=== PATIENT | male | born 1950 | race Caucasian/White ===

== ENCOUNTER 2024-02-21 09:46 | Inpatient (IN) | payer MEDICARE, OTHER, SELFPAY ==
[2024-02-21] VITALS (12 sets, daily range): BP systolic 95–147; BP diastolic 52–116; PULSE 71–105; RESP 12–18; TEMP 36.1–37.1; O2SAT 88–100; BMI 33.1; BMI 32.4
--- NOTE | 2024-02-21 11:18 | EKG12_ITS ---
Test Reason : CONFUSION Blood Pressure : / mmHG Vent. Rate : 101 BPM Atrial Rate : 091 BPM P-R Int : 000 ms QRS Dur : 158 ms QT Int : 386 ms P-R-T Axes : 000 160 040 degrees QTc Int : 500 ms Ventricular-paced rhythm with PVC's Abnormal ECG Confirmed by Terry Erickson ([id number]), film and video editor TIBURCIO GURROLA ([id number]) on 02/22/2024 7:47:29 AM Referred By: Confirmed By:Terry Erickson
--- NOTE | 2024-02-21 11:21 | EX.ED.DYSGE1 ---
HPI <CARINE Rios - Last Filed: 02/21/24 14:16> History of Present Illness Chief Complaint: Confusion Narrative Narrative: Patient is a 73-year-old male with history of atrial fibrillation who had a watchman placed, and stopped his Coumadin last week. Patient is currently on baby aspirin. Patient also has history of CAD, hypertension hyperlipidemia. Patient states that yesterday morning when he woke up, he felt off. Patient dates he had visual changes where he could not see the top part of his visual nye. Patient does not think that it is black however he states it is very blurry where he cannot see. He was complaining of a headache a couple days ago. Patient is he called his doctor yesterday however could not get in. Today his sister talk to them and because he was acting confused, they called the ambulance. Patient is here with his daughter. PFSH <CARINE Rios - Last Filed: 02/21/24 14:16> [facility] Medical History Afib HTN (hypertension) Myocardial infarct COPD (chronic obstructive pulmonary disease) Medical History unable to obtain Home Medications ?Medication ?Instructions ?Recorded ?Last Taken ?Type aspirin 81 mg tablet,delayed 81 mg PO DAILY HEART HEALTH 02/21/24 Unknown History release (Adult Aspirin Regimen) carvedilol 3.125 mg tablet 3.125 mg PO BID HEART 02/21/24 Unknown History cholecalciferol (vitamin D3) 50 50 mcg PO DAILY VITAMIN 02/21/24 Unknown History mcg (2,000 unit) capsule clopidogrel 75 mg tablet 75 mg PO DAILY BLOOD THINNER 02/21/24 Unknown History magnesium oxide 400 mg PO DAILY SUPPLEMENT 02/21/24 Unknown History pantoprazole 40 mg tablet,delayed 40 mg PO BID STOMACH ACID 02/21/24 Unknown History release potassium citrate 10 mEq (1,080 10 meq PO BID SUPPLEMENT 02/21/24 Unknown History mg) tablet,extended release pregabalin 150 mg capsule (Lyrica) 150 mg PO BID NERVE PAIN 02/21/24 Unknown History rosuvastatin 5 mg tablet 5 mg PO DAILY CHOLESTEROL 02/21/24 Unknown History spironolactone 25 mg tablet 12.5 mg PO DAILY HIGH BLOOD 02/21/24 Unknown History (Aldactone) PRESSURE torsemide 20 mg tablet 10 mg PO QODAY FLUID RETENTION 02/21/24 Unknown History Allergy/AdvReac Type Severity Reaction Status Date / Time No Known Allergies Allergy Verified 02/21/24 09:52 Family History (Updated 02/21/24 @ 15:[address] Homero Baker MD) Other Lung cancer Family History unable to obtain Surgical History Pacemaker Presence of Watchman left atrial appendage closure device Surgical History unable to obtain Social History Smoking Status: Former smoker ROS <CARINE Rios - Last Filed: 02/21/24 14:16> ROS ED ROS Narrative Constitutional: Negative for fever, chills, weight loss, weakness Eyes: Negative for vision change, double vision. Positive top field vision loss bilateral ENT: Negative for any sore throat, ear pain, congestion Cardiovascular: Negative for any chest pain, tightness, palpitations Respiratory: Negative for any cough, sputum production, hemoptysis, dyspnea, dyspnea on exertion, orthopnea Gastrointestinal: Negative for any abdominal pain, nausea, vomiting, diarrhea, constipation, blood in stool, blood in vomit : Negative for any urinary frequency, dysuria, retention, blood in urine Muscle skeletal: Negative for any neck pain, back pain Neurological: Negative for any syncope, dizziness. Positive for history of headache, confusion, he understands he is not acting appropriate Skin: Negative for any rashes, itching, abrasions, lacerations Psychiatric: Negative for any depression, anxiety, stress, suicidal ideation, homicidal ideation Hematologic: Negative for any excessive bruising, easy bleeding EXAM <CARINE Rios - Last Filed: 02/21/24 14:16> Physical Exam Narrative Exam Narrative: Vital signs reviewed. Patient is alert and orient x 2, he does answer some questions appropriately, he does understand that he is slightly more confused than normal. HEET: Head normocephalic atraumatic, TMs clear bilaterally. Posterior pharynx is clear, moist mucous membranes. Nares clear bilaterally. Pupils are equal round reactive to light. Patient does have vision loss to the upper visual nye. This is bilateral. Neck: Supple with no lymphadenopathy or tenderness. No signs of meningismus. Cardiac: Regular rate and rhythm no murmurs gallops or rubs, equal peripheral pulses bilaterally. Respiratory: Lungs clear to auscultation bilaterally. No chest tenderness. Abdomen: Soft, nontender, nondistended. No abdominal bruit or pulsatile masses. No hepatosplenomegaly Extremities: No peripheral edema, no signs of gross trauma or deformity. Active full range of motion of all extremities. Neuro: Cranial nerves II through XII intact, no focal neurological deficits. NIH stroke scale 2 for vision loss, confusion Skin: Clean dry and intact with no rash, purpura, petechiae, vesicles or pustules. Backs/flank: No CVA tenderness, no midline spinal tenderness, no deformity. Psych: Normal mood and affect. No SI, HI or acute psychosis. Const Vital Signs: 02/21/24 09:47 02/21/24 10:53 02/21/24 11:00 Temperature 97 F L Temperature Source Temporal Pulse Rate 100 100 98 Respiratory Rate 12 12 14 Blood Pressure 140/116 H 139/94 H 141/91 H Blood Pressure Mean 124 109 107 Pulse Ox 96 94 95 Oxygen Delivery Method Room Air Room Air 02/21/24 12:00 02/21/24 13:15 02/21/24 14:00 Temperature 98.2 F Temperature Source Pulse Rate 78 89 79 Respiratory Rate 16 13 17 Blood Pressure 147/101 H 131/81 H 129/99 H Blood Pressure Mean 116 97 109 Pulse Ox 98 98 100 Oxygen Delivery Method Room Air Positive well nourished and well developed General Appearance ED: well developed <Dr. Eugenio Christopher DO - Last Filed: 02/21/24 22:38> Physical Exam Const Vital Signs: 02/21/24 09:47 02/21/24 10:53 02/21/24 11:00 Temperature 97 F L Temperature Source Temporal Pulse Rate 100 100 98 Respiratory Rate 12 12 14 Blood Pressure 140/116 H 139/94 H 141/91 H Blood Pressure Mean 124 109 107 Pulse Ox 96 94 95 Oxygen Delivery Method Room Air Room Air 02/21/24 12:00 02/21/24 13:15 02/21/24 14:00 Temperature 98.2 F Temperature Source Pulse Rate 78 89 79 Respiratory Rate 16 13 17 Blood Pressure 147/101 H 131/81 H 129/99 H Blood Pressure Mean 116 97 109 Pulse Ox 98 98 100 Oxygen Delivery Method Room Air MDM <CARINE Rios - Last Filed: 02/21/24 14:16> MDM Lab Data Labs: Laboratory Results - last 24 hr 02/21/24 02/21/24 10:42 13:05 WBC 7.8 RBC 5.37 Hgb 15.5 Hct 47.8 MCV 89.0 MCH 28.9 MCHC 32.4 RDW Std Deviation 51.8 H RDW Coeff of Elias 15.9 H Plt Count 237 MPV 11.1 Immature Gran % (Auto) 0.300 Neut % (Auto) 69.3 Lymph % (Auto) 16.6 L [place] % (Auto) 11.9 H Eos % (Auto) 1.3 Baso % (Auto) 0.6 Absolute Neuts (auto) 5.4 Absolute Lymphs (auto) 1.30 Nucleated RBC % 0 PT 15.2 H INR 1.2 Sodium 139 Potassium 3.8 Chloride 106 Carbon Dioxide 27.0 Anion Gap 6 BUN 19 H Creatinine 1.42 H Estim Creat Clear Calc 61.36 Est GFR (MDRD) Af Amer 63 Est GFR (MDRD) Non-Af 52 L BUN/Creatinine Ratio 13.4 Glucose 98 Calcium 8.7 Total Bilirubin 1.40 H AST 11 L ALT 29 Alkaline Phosphatase 72 Troponin I High Sens 9 Total Protein 6.7 Albumin 2.8 L Globulin 3.9 Albumin/Globulin Ratio 0.7 L Urine Color Yellow Urine Clarity Clear Urine pH 7.0 Ur Specific [place] 1.010 Urine Protein 15 H Urine Glucose (UA) Normal Urine Ketones 5 H Urine Occult Blood Negative Urine Nitrite Negative Urine Bilirubin Negative Urine Urobilinogen 4 H Ur Leukocyte Esterase Negative Urine RBC 0 SEEN Urine WBC 0 SEEN Ur Squamous Epith Cells 0-5 SEEN Amorphous Sediment 1+ Urine Bacteria 1+ Urine Mucus 0 SEEN Radiography Diagnostic Testing: Clinical Impression(s) from Imaging Studies Head/Neck CTA 02/21/24 12:25 IMPRESSION: Moderate acute left posterior cerebral artery territory infarct. Mild acute right posterior cerebral artery territory infarct. No acute intracranial hemorrhage identified. Thrombus and occlusion of the mid left and distal right posterior cerebral arteries. No evidence for significant stenosis of the carotid or vertebral arteries of the neck. N.B. : Domenic Cornejo NP, confirmed on 02/21/2024 13:16:08 (ET) that the healthcare facility has received the radiology report. Electronically Signed: Susan Harmon MD at 13:10 EDT , Chest X-Ray 02/21/24 12:50 IMPRESSION: Mild atelectasis or inflammation the lung bases. Electronically Signed: Susan Harmon MD at 13:14 EDT , EKG Ventricular paced rhythm: Attestation: I personally reviewed and interpreted this EKG as follows: Comments: Ventricular paced rhythm, rate 101 bpm, QRS duration of 58 ms, no acute ST elevation, no acute infarct noted. Treatment and Re-Evaluation :: Differential diagnosis includes however is not limited to: CVA, TIA, hypoglycemia, metabolic encephalopathy, viral syndrome, optic neuritis, brain mass Patient is in no obvious respiratory distress vital signs are stable patient is nontoxic. Patient presents to the emergency department for vision changes as well as confusion that is been ongoing since 7 AM yesterday. Talking with the patient, I am concerned for a stroke however patient does have history of possible lung cancer, so in the differential is CVA, brain mass. Patient will receive a CTA of the head and neck with contrast, as well as IV fluids, multiple laboratory values. The patient will need to be admitted to the hospital. NIH stroke scale was 2 this was for some confusion as well as vision loss. All radiologic examinations were read, reviewed by the emergency department attending. From these reads, a plan of care will be put in place. I did receive a call from [facility] radiology regarding the patient's CTA of the head and neck. CTA of the head and neck showed a moderate acute left posterior cerebral artery territory infarct. Mild acute right posterior cerebral artery territory infarct. No acute intracranial hemorrhage identified. There is also thrombus and occlusion of the mid left and distal right posterior cerebral arteries. No evidence of significant stenosis of the carotid or vertebral arteries of the neck. Secondary to this finding, I will reach out to the [facility] stroke neurology. Spoke with [facility] stroke neurologist Dr. Nj, I went over the CTA head and neck with her, at this time, she does not believe there is any intervention. Patient will be able to be admitted here for stroke workup. I spoke with the patient, I will speak to the hospitalist. Patient be stable for admission. <Dr. Eugenio Christopher, DO - Last Filed: 02/21/24 22:38> [facility] Narrative Medical decision making narrative: I have personally performed a face to face assessment of the patient and have reviewed the CHRISTOPHER Note. I performed a substantive portion of the visit including all aspects of the following. My sierra findings include: History: Patient presents with confusion and headache that began yesterday when he woke up. Patient states his last known well was approximately 9 PM 2 nights ago. Patient states that his headache is mainly over the left side of his head. Patient describes it as a dull ache. Patient also admits to decreased vision of the superior visual nye bilaterally. Patient states nothing makes his symptoms better and nothing makes them worse. Patient denies any chest pain or palpitations. Patient denies any nausea or vomiting. Exam: Vital signs are stable. Patient is afebrile. Patient is in no acute distress. Oral mucosa is pink and moist. Oropharynx is clear. Airway is patent. Pupils are equal, round, and reactive to light bilaterally. Extraocular muscles are intact. Funduscopic examination is benign bilaterally. Heart was regular rate and rhythm. Lungs are clear and equal bilaterally. Abdomen is soft. Bowel sounds are normal. There is no tenderness. Cranial nerves II through XII are intact with the exception of a loss of superior visual nye bilaterally. Strength is 5/5 bilaterally upper and lower extremities. There are no sensory deficits noted. Medical Decision Making: Differential diagnose includes stroke, intracranial bleeding, intracranial mass, electrolyte abnormality, pneumonia, coagulopathy, urinary tract infection, cardiac dysrhythmia, and cardiac ischemia. CT scan of the brain will be obtained to assess for stroke and intracranial bleeding. CTA of the head and neck will be obtained to assess for large vessel occlusion. Chest x-ray will be obtained to assess for pneumonia and pneumothorax. CBC will be obtained to assess for leukocytosis and anemia. Comprehensive metabolic profile will be obtained to assess for hepatic function, renal function, and electrolyte abnormality. Urinalysis will be obtained to assess for urinary tract infection and hematuria. PT with INR and PTT will be obtained to assess for coagulopathy. High-sensitivity troponin will be obtained to assess for cardiac ischemia. EKG will be obtained to assess for cardiac dysrhythmia and cardiac ischemia. Patient was given IV fluids. CBC was reviewed and was within normal limits. Comprehensive metabolic profile was reviewed. BUN was 19 and creatinine was 1.42. Total bilirubin was mildly elevated at 1.4. The remainder was within normal limits. There are no prior lab values for comparison. CTA of the head and neck was obtained. There is a moderate infarct of the left posterior cerebral artery territory. There is a mild infarct of the right posterior cerebral artery territory. There is thrombus and occlusion of the left mid and right distal posterior cerebral arteries. There is no hemorrhage noted. This was interpreted by the radiologist was also independently reviewed by myself. Case was discussed with the stroke neurologist at [facility]. She states that the patient can be admitted here locally for further workup. This does not need to be transferred for removal of the large vessel occlusion. Case was discussed with the hospitalist. He will admit the patient to the hospital. Patient and family understood and were agreeable with the plan. All questions were answered. Lab Data Labs: Laboratory Results - last 24 hr 02/21/24 02/21/24 10:42 13:05 WBC 7.8 RBC 5.37 Hgb 15.5 Hct 47.8 MCV 89.0 MCH 28.9 MCHC 32.4 RDW Std Deviation 51.8 H RDW Coeff of Elias 15.9 H Plt Count 237 MPV 11.1 Immature Gran % (Auto) 0.300 Neut % (Auto) 69.3 Lymph % (Auto) 16.6 L [place] % (Auto) 11.9 H Eos % (Auto) 1.3 Baso % (Auto) 0.6 Absolute Neuts (auto) 5.4 Absolute Lymphs (auto) 1.30 Nucleated RBC % 0 PT 15.2 H INR 1.2 Sodium 139 Potassium 3.8 Chloride 106 Carbon Dioxide 27.0 Anion Gap 6 BUN 19 H Creatinine 1.42 H Estim Creat Clear Calc 61.36 Est GFR (MDRD) Af Amer 63 Est GFR (MDRD) Non-Af 52 L BUN/Creatinine Ratio 13.4 Glucose 98 Calcium 8.7 Total Bilirubin 1.40 H AST 11 L ALT 29 Alkaline Phosphatase 72 Troponin I High Sens 9 Total Protein 6.7 Albumin 2.8 L Globulin 3.9 Albumin/Globulin Ratio 0.7 L Urine Color Yellow Urine Clarity Clear Urine pH 7.0 Ur Specific [place] 1.010 Urine Protein 15 H Urine Glucose (UA) Normal Urine Ketones 5 H Urine Occult Blood Negative Urine Nitrite Negative Urine Bilirubin Negative Urine Urobilinogen 4 H Ur Leukocyte Esterase Negative Urine RBC 0 SEEN Urine WBC 0 SEEN Ur Squamous Epith Cells 0-5 SEEN Amorphous Sediment 1+ Urine Bacteria 1+ Urine Mucus 0 SEEN Radiography Diagnostic Testing: Clinical Impression(s) from Imaging Studies Head/Neck CTA 02/21/24 12:25 IMPRESSION: Moderate acute left posterior cerebral artery territory infarct. Mild acute right posterior cerebral artery territory infarct. No acute intracranial hemorrhage identified. Thrombus and occlusion of the mid left and distal right posterior cerebral arteries. No evidence for significant stenosis of the carotid or vertebral arteries of the neck. N.B. : Domenic Cornejo NP, confirmed on 02/21/2024 13:16:08 (ET) that the healthcare facility has received the radiology report. Electronically Signed: Susan Harmon MD at 13:10 EDT , Chest X-Ray 02/21/24 12:50 IMPRESSION: Mild atelectasis or inflammation the lung bases. Electronically Signed: Susan aHrmon MD at 13:14 EDT , Management Discussion w/another healthcare provider: Hospitalist, Director Supply Chain and Radiologist Discharge Plan Dx/Rx/DC Orders Clinical Impression: Acute ischemic left posterior cerebral artery (MULE TENDER) stroke, Acute ischemic right posterior cerebral artery (MULE TENDER) stroke, Loss of vision, Acute alteration in mental status Disposition Disposition: Acute Care Hospital [facility] Discharge Date/Time: 02/21/24 15:17
--- NOTE | 2024-02-21 11:27 | EDS_ITS ---
HPI History of Present Illness Chief Complaint: Confusion [facility] Medical History
--- NOTE | 2024-02-21 11:27 | EX.ED.DYSGE1 ---
HPI History of Present Illness Chief Complaint: Confusion [facility] Medical History Afib HTN (hypertension) Myocardial infarct COPD (chronic obstructive pulmonary disease) Medical History unable to obtain Home Medications ?Medication ?Instructions ?Recorded ?Last Taken ?Type aspirin 81 mg tablet,delayed 81 mg PO DAILY HEART HEALTH 02/21/24 Unknown History release (Adult Aspirin Regimen) carvedilol 3.125 mg tablet 3.125 mg PO BID HEART 02/21/24 Unknown History cholecalciferol (vitamin D3) 50 50 mcg PO DAILY VITAMIN 02/21/24 Unknown History mcg (2,000 unit) capsule clopidogrel 75 mg tablet 75 mg PO DAILY BLOOD THINNER 02/21/24 Unknown History magnesium oxide 400 mg PO DAILY SUPPLEMENT 02/21/24 Unknown History pantoprazole 40 mg tablet,delayed 40 mg PO BID STOMACH ACID 02/21/24 Unknown History release potassium citrate 10 mEq (1,080 10 meq PO BID SUPPLEMENT 02/21/24 Unknown History mg) tablet,extended release pregabalin 150 mg capsule (Lyrica) 150 mg PO BID NERVE PAIN 02/21/24 Unknown History rosuvastatin 5 mg tablet 5 mg PO DAILY CHOLESTEROL 02/21/24 Unknown History spironolactone 25 mg tablet 12.5 mg PO DAILY HIGH BLOOD 02/21/24 Unknown History (Aldactone) PRESSURE torsemide 20 mg tablet 10 mg PO QODAY FLUID RETENTION 02/21/24 Unknown History Allergy/AdvReac Type Severity Reaction Status Date / Time No Known Allergies Allergy Verified 02/21/24 09:52 Family History (Updated 02/21/24 @ 15:[address] Homero Baker MD) Other Lung cancer Family History unable to obtain Surgical History Pacemaker Presence of Watchman left atrial appendage closure device Surgical History unable to obtain Social History Smoking Status: Former smoker EXAM Physical Exam Const Vital Signs: 02/21/24 09:47 02/21/24 10:53 02/21/24 11:00 Temperature 97 F L Temperature Source Temporal Pulse Rate 100 100 98 Respiratory Rate 12 12 14 Blood Pressure 140/116 H 139/94 H 141/91 H Blood Pressure Mean 124 109 107 Pulse Ox 96 94 95 Oxygen Delivery Method Room Air Room Air 02/21/24 12:00 02/21/24 13:15 02/21/24 14:00 Temperature 98.2 F Temperature Source Pulse Rate 78 89 79 Respiratory Rate 16 13 17 Blood Pressure 147/101 H 131/81 H 129/99 H Blood Pressure Mean 116 97 109 Pulse Ox 98 98 100 Oxygen Delivery Method Room Air [facility] Lab Data Labs: Laboratory Results - last 24 hr 02/21/24 02/21/24 10:42 13:05 WBC 7.8 RBC 5.37 Hgb 15.5 Hct 47.8 MCV 89.0 MCH 28.9 MCHC 32.4 RDW Std Deviation 51.8 H RDW Coeff of Elias 15.9 H Plt Count 237 MPV 11.1 Immature Gran % (Auto) 0.300 Neut % (Auto) 69.3 Lymph % (Auto) 16.6 L [place] % (Auto) 11.9 H Eos % (Auto) 1.3 Baso % (Auto) 0.6 Absolute Neuts (auto) 5.4 Absolute Lymphs (auto) 1.30 Nucleated RBC % 0 PT 15.2 H INR 1.2 Sodium 139 Potassium 3.8 Chloride 106 Carbon Dioxide 27.0 Anion Gap 6 BUN 19 H Creatinine 1.42 H Estim Creat Clear Calc 61.36 Est GFR (MDRD) Af Amer 63 Est GFR (MDRD) Non-Af 52 L BUN/Creatinine Ratio 13.4 Glucose 98 Calcium 8.7 Total Bilirubin 1.40 H AST 11 L ALT 29 Alkaline Phosphatase 72 Troponin I High Sens 9 Total Protein 6.7 Albumin 2.8 L Globulin 3.9 Albumin/Globulin Ratio 0.7 L Urine Color Yellow Urine Clarity Clear Urine pH 7.0 Ur Specific [place] 1.010 Urine Protein 15 H Urine Glucose (UA) Normal Urine Ketones 5 H Urine Occult Blood Negative Urine Nitrite Negative Urine Bilirubin Negative Urine Urobilinogen 4 H Ur Leukocyte Esterase Negative Urine RBC 0 SEEN Urine WBC 0 SEEN Ur Squamous Epith Cells 0-5 SEEN Amorphous Sediment 1+ Urine Bacteria 1+ Urine Mucus 0 SEEN Radiography Diagnostic Testing: Clinical Impression(s) from Imaging Studies Head/Neck CTA 02/21/24 12:25 IMPRESSION: Moderate acute left posterior cerebral artery territory infarct. Mild acute right posterior cerebral artery territory infarct. No acute intracranial hemorrhage identified. Thrombus and occlusion of the mid left and distal right posterior cerebral arteries. No evidence for significant stenosis of the carotid or vertebral arteries of the neck. N.B. : Domenic Cornejo NP, confirmed on 02/21/2024 13:16:08 (ET) that the healthcare facility has received the radiology report. Electronically Signed: Susan Harmon MD at 13:10 EDT , Chest X-Ray 02/21/24 12:50 IMPRESSION: Mild atelectasis or inflammation the lung bases. 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
[2024-02-21] MEDS: 0.9% Normal Saline (1000mL) 1,000 ML 999 ML IV (11:33)
[2024-02-21 11:37] LABS: Absolute Neutrophil Count 5.4 X10^3/uL (2.0-7.7); Basophil# 0.05 X10^3/uL; Basophil% 0.6 % (0-1); Eosinophils% 1.3 % (0-5); Hematocrit 47.8 % (40-54); Hemoglobin 15.5 g/dL (13.0-16.5); Lymphocyte % 16.6 % (19-41); Mean Corp Hgb Conc 32.4 g/dL (32-36); Mean Corpuscular Hgb 28.9 pg (27.0-32.0); Mean Platelet Vol. 11.1 fl (6.2-12.0); Monocyte# 0.93 X10^3/uL; Monocyte% 11.9 % (0-10); NRBC Flagged by Analyzer 0 % (0-5); Neutrophil # 5.41 X10^3/uL (2.7-7.7); Neutrophil % 69.3 % (47-70); Platelet Count 237 K/mm3 (150-450); RBC Distribution Width CV 15.9 % (11.6-14.6); RBC Distribution Width SD 51.8 fl (35.1-43.9); Red Blood Count 5.37 M/mm3 (4.6-6.2); White Blood Count 7.8 K/mm3 (4.4-11.0)
--- NOTE | 2024-02-21 11:47 | ED.RN ---
NO OLD EKGS
[2024-02-21 11:53] LABS: ALB/GLOB Ratio 0.7 RATIO (0.9-2.4); AST(SGOT) 11 U/L (15-37); Alanine Aminotransfer ALT/SGPT 29 U/L (16-61); Albumin, Serum 2.8 g/dL (3.2-5.0); Alkaline Phosphatase 72 U/L (45-117); Anion Gap 6 (5-15); BUN 19 mg/dL (7-18); BUN/Creat Ratio 13.4 RATIO (10-20); Calcium,Total 8.7 mg/dL (8.5-10.1); Chloride 106 mmol/L (98-107); Creatinine, Serum 1.42 mg/dL (0.70-1.30); EST Glomerular Filtration Rate 52 mL/min (>60); Est Glom Filt Rate - Afr Amer 63 mL/min (>60); Estimated Creatinine Clearance 61.36 ml/min; Globulin 3.9 g/dL (2.2-4.2); Glucose 98 mg/dL (74-106); Potassium 3.8 mmol/L (3.5-5.1); Protein, Total 6.7 g/dL (6.4-8.2); Sodium Level 139 mmol/L (136-145)
[2024-02-21 12:12] LABS: International Normalized Ratio 1.2; Prothrombin Time (Protime)PT. 15.2 SECONDS (11.7-14.9)
--- NOTE | 2024-02-21 12:25 | CT_ITS ---
HISTORY: confusion. TECHNIQUE: Noncontrast axial images were obtained of the brain. Subsequently, routine carotid and sokaogon of Snider CT angiogram protocol was performed after the intravenous administration of 100 mL Isovue-370. NASCET criteria using the distal ICAs for comparison were used for evaluation of stenoses. 3D reconstructions were reviewed. A radiation dose optimization technique was used for this scan .2286 images. COMPARISON: None. FINDINGS: --CT BRAIN: BRAIN PARENCHYMA: Moderate zone of cytotoxic edema in the medial left temporal lobe with mild sulcal effacement. Mild zones of low attenuation with sulcal effacement in the right medial occipital lobe. Mild chronic small vessel ischemic gliosis. No acute intra-axial hemorrhage. CSF SPACES: Mild generalized volume loss. No midline shift or other significant mass effect.No acute extra-axial hemorrhage. Small arachnoid cyst or prominent CSF space of the left anterior temporal pole. OTHER: Sinonasal postoperative change with mild polypoid mucosal thickening.Symmetric orbital contents. Intact calvarium. --CTA NECK: AORTIC ARCH AND BRANCHES: Mild atherosclerosis. RIGHT CCA/ICA: Minimal calcified plaque at the bifurcation extending into the origins of the internal/external carotid arteries. No occlusion, significant stenosis or dissection. LEFT CCA/ICA: Mild calcified plaque at the common carotid bifurcation extending into the origin of the internal carotid artery with less than 30% stenosis. No occlusion, significant stenosis or dissection. RIGHT VERTEBRAL ARTERY: Hypoplastic. No occlusion, significant stenosis or dissection. LEFT VERTEBRAL ARTERY: Dominant. No occlusion, significant stenosis or dissection. OTHER: Cardiac pacemaker noted. Emphysema in the lung apices. Small thyroid nodules. --CTA HEAD: ICAs: No significant stenosis at the intracranial/visualized segments. Mild calcified plaque at the carotid siphons. ACAs: No significant stenosis at the visualized segments. No anterior communicating artery aneurysm. MCAs: No significant stenosis or vascular malformation at the visualized segments. record tester: Abrupt cut off of the distal right and mid left posterior cerebral arteries. BASILAR ARTERY: No significant stenosis, occlusion, or aneurysm. VERTEBRAL ARTERIES: Mild calcified plaque in the dominant left vertebral artery without significant stenosis. Hypoplastic and patent right vertebral artery, likely terminating as PICA. CT/CTA Head AND Neck W/ Contrast IMPRESSION: Moderate acute left posterior cerebral artery territory infarct. Mild acute right posterior cerebral artery territory infarct. No acute intracranial hemorrhage identified. Thrombus and occlusion of the mid left and distal right posterior cerebral arteries. No evidence for significant stenosis of the carotid or vertebral arteries of the neck. N.B. : Domenic Corenjo NP, confirmed on 02/21/2024 13:16:08 (ET) that the healthcare facility has received the radiology report. Electronically Signed: Susan Harmon MD at 13:10 EDT ,
--- NOTE | 2024-02-21 12:50 | RAD_ITS ---
HISTORY: cough. TECHNIQUE: XR Chest 1 View. COMPARISON: None. FINDINGS: CARDIOMEDIASTINAL BORDERS: Cardiac silhouette within normal limits in size with pacemaker in place. Calcification of the aortic knob. LUNGS: Calcified granuloma in the left upper lobe. Mild linear scarring in the right upper lobe. Bulla in the right lung base. Mild linear opacities in the lung bases PLEURA: No pleural effusion or pneumothorax seen. OSSEOUS STRUCTURES: Degenerative change. RAD/Chest 1 View (Portable) IMPRESSION: Mild atelectasis or inflammation the lung bases. Electronically Signed: Susan Harmon MD at 13:14 EDT ,
[2024-02-21 13:00] LABS: Troponin-I HS 9 pg/mL (3.0-78.0)
[2024-02-21 13:12] LABS: Mucous, Urine 0 SEEN /hpf (<or=2+); Red Blood Cells-Urine 0 SEEN /hpf (0-5); White Blood Cells 0 SEEN /hpf (0-5)
[2024-02-21 13:17] LABS: Color, Urine Yellow (Yellow); Glucose, Dipstick Normal (Normal); Ketone-Dipstick 5 mg/dl (Negative); Leukocyte Esterase-Dipstick Negative /ul (Negative); Nitrite-Dipstick Negative (Negative); Occult Blood-Urine Negative /ul (Negative); Protein-Dipstick 15 mg/dl (Negative); Urine Bilirubin Dipstick Negative (Negative); Urine Clarity Clear (Clear); Urine Urobilinogen 4 mg/dl (Normal)
[2024-02-21 13:29] LABS: Amorphous Sediment 1+; Bacteria 1+ /hpf (None Seen); Squamous Epithelial Cells - UA 0-5 SEEN /hpf (0-5)
--- NOTE | 2024-02-21 14:18 | PCM.HP.STD ---
HPI - General General Date of Admission: 02/21/24 Date of Service: 02/21/24 Chief Complaint: Confusion HPI Narrative YESY LAWLER, is a 73 M with a significant history of atrial fibrillation status post left atrial appendage clippage and on permanent pacemaker; CAD status post 3 stents who presented to the emergency department with confusion. Of note patient symptoms started when he woke up at about 7 AM on the day before presentation. Because he has had a broken teeth tried calling a dentist to get it fixed. However he was not making sense on the phone. Also patient could not see superiorly. With urging from his sister patient came to emergency department. At the emergency department patient was found to have Moderate acute left posterior cerebral artery territory infarct; Mild acute right posterior cerebral artery territory infarct and Thrombus and occlusion of the mid left and distal right posterior cerebral arteries. Emergency department provider discussed the case with attending neurologist from [facility] who recommended that patient should undergo medical management. [facility] Medical History Afib HTN (hypertension) Myocardial infarct COPD (chronic obstructive pulmonary disease) Medical History unable to obtain Home Medications ?Medication ?Instructions ?Recorded ?Last Taken ?Type aspirin 81 mg tablet,delayed 81 mg PO DAILY HEART HEALTH 02/21/24 Unknown History release (Adult Aspirin Regimen) carvedilol 3.125 mg tablet 3.125 mg PO BID HEART 02/21/24 Unknown History cholecalciferol (vitamin D3) 50 50 mcg PO DAILY VITAMIN 02/21/24 Unknown History mcg (2,000 unit) capsule clopidogrel 75 mg tablet 75 mg PO DAILY BLOOD THINNER 02/21/24 Unknown History magnesium oxide 400 mg PO DAILY SUPPLEMENT 02/21/24 Unknown History pantoprazole 40 mg tablet,delayed 40 mg PO BID STOMACH ACID 02/21/24 Unknown History release potassium citrate 10 mEq (1,080 10 meq PO BID SUPPLEMENT 02/21/24 Unknown History mg) tablet,extended release pregabalin 150 mg capsule (Lyrica) 150 mg PO BID NERVE PAIN 02/21/24 Unknown History rosuvastatin 5 mg tablet 5 mg PO DAILY CHOLESTEROL 02/21/24 Unknown History spironolactone 25 mg tablet 12.5 mg PO DAILY HIGH BLOOD 02/21/24 Unknown History (Aldactone) PRESSURE torsemide 20 mg tablet 10 mg PO QODAY FLUID RETENTION 02/21/24 Unknown History Allergy/AdvReac Type Severity Reaction Status Date / Time No Known Allergies Allergy Verified 02/21/24 09:52 Family History (Updated 02/21/24 @ 15:[address] Homero Baker MD) Other Lung cancer Family History other other (His mother lived to be 97 to 98 years.) Surgical History Pacemaker Presence of Watchman left atrial appendage closure device Surgical History unable to obtain Social History Smoking Status: Former smoker ROS ROS Narrative Pertinent positives and pertinent negatives as noted in HPI. All other systems were reviewed and are negative Vital Signs Vital Signs Vital Signs: 02/21/24 09:47 02/21/24 10:53 02/21/24 11:00 Temperature 97 F L Temperature Source Temporal Pulse Rate 100 100 98 Respiratory Rate 12 12 14 Blood Pressure 140/116 H 139/94 H 141/91 H Blood Pressure Mean 124 109 107 Pulse Ox 96 94 95 Oxygen Delivery Method Room Air Room Air 02/21/24 12:00 02/21/24 13:15 02/21/24 14:00 Temperature 98.2 F Temperature Source Pulse Rate 78 89 79 Respiratory Rate 16 13 17 Blood Pressure 147/101 H 131/81 H 129/99 H Blood Pressure Mean 116 97 109 Pulse Ox 98 98 100 Oxygen Delivery Method Room Air Weight Weight: 110.9 kg Body Mass Index (BMI) 33.1 Physical Exam Narrative Physical exam: General: Well-nourished, well-developed. Head: Normocephalic, atraumatic, no tenderness Eyes: Vision is grossly intact. EOMI ENT, no trauma, moist mucous membranes, no rhinorrhea Neck: Nontender, No thyromegaly. CVS: Regular rate and rhythm. S1-S2 present. No murmur, gallop or rub. Respiratory : clear to auscultation bilaterally, chest wall nontender Abdomen: Soft, nontender, nondistended, normal bowel sounds, no masses : Deferred Back: Nontender, no CVA tenderness, no midline spinal tenderness, deformities, step-offs Extremities: Nontender full range of motion, no trauma Skin: Normal color, no trauma, abrasions Neuro: Alert, oriented, cranial nerves II through XII grossly intact as the patient is unable to see superiorly; both eyes were tested separately. Strength in all extremities 5 out of 5 except strength in left lower extremity which is 4 out of 5. Not hyperreflexia bilaterally at elbow reflex and knee reflexes Psychiatry: Normal mood. Normal affect. Not depressed. Not anxious. Results Lab / Micro Data 02/21/24 10:42 02/21/24 10:42 Labs: Laboratory Results - last 24 hr 02/21/24 10:42: WBC 7.8, RBC 5.37, Hgb 15.5, Hct 47.8, MCV 89.0, MCH 28.9, MCHC 32.4, RDW Std Deviation 51.8 H, RDW Coeff of Elias 15.9 H, Plt Count 237, MPV 11.1, Immature Gran % (Auto) 0.300, Neut % (Auto) 69.3, Lymph % (Auto) 16.6 L, Coles % (Auto) 11.9 H, Eos % (Auto) 1.3, Baso % (Auto) 0.6, Absolute Neuts (auto) 5.4, Absolute Lymphs (auto) 1.30, Nucleated RBC % 0, PT 15.2 H, INR 1.2, Sodium 139, Potassium 3.8, Chloride 106, Carbon Dioxide 27.0, Anion Gap 6, BUN 19 H, Creatinine 1.42 H, Estim Creat Clear Calc 61.36, Est GFR (MDRD) Af Amer 63, Est GFR (MDRD) Non-Af 52 L, BUN/Creatinine Ratio 13.4, Glucose 98, Calcium 8.7, Total Bilirubin 1.40 H, AST 11 L, ALT 29, Alkaline Phosphatase 72, Troponin I High Sens 9, Total Protein 6.7, Albumin 2.8 L, Globulin 3.9, Albumin/Globulin Ratio 0.7 L 02/21/24 13:05: Urine Color Yellow, Urine Clarity Clear, Urine pH 7.0, Ur Specific [place] 1.010, Urine Protein 15 H, Urine Glucose (UA) Normal, Urine Ketones 5 H, Urine Occult Blood Negative, Urine Nitrite Negative, Urine Bilirubin Negative, Urine Urobilinogen 4 H, Ur Leukocyte Esterase Negative, Urine RBC 0 SEEN, Urine WBC 0 SEEN, Ur Squamous Epith Cells 0-5 SEEN, Amorphous Sediment 1+, Urine Bacteria 1+, Urine Mucus 0 SEEN Imaging Radiology Impression Head/Neck CTA 02/21/24 12:25 IMPRESSION: Moderate acute left posterior cerebral artery territory infarct. Mild acute right posterior cerebral artery territory infarct. No acute intracranial hemorrhage identified. Thrombus and occlusion of the mid left and distal right posterior cerebral arteries. No evidence for significant stenosis of the carotid or vertebral arteries of the neck. N.B. : Domenic Cornejo NP, confirmed on 02/21/2024 13:16:08 (ET) that the healthcare facility has received the radiology report. Electronically Signed: Susan Harmon MD at 13:10 EDT , Chest X-Ray 02/21/24 12:50 IMPRESSION: Mild atelectasis or inflammation the lung bases. 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 Acute ischemic right posterior cerebral artery stroke/acute ischemic left posterior cerebral artery stroke/thrombosis occlusion of the mid left and distal right posterior cerebral arteries Serial NINDS NIH Scale ordered Imaging interpreted by myself: Acute ischemic right posterior cerebral artery stroke/acute ischemic left posterior cerebral artery stroke/thrombosis occlusion of the mid left and distal right posterior cerebral arteries. Agrees with interpretation. Lipid profile and A1c ordered. Physical therapy, and occupational therapy. N.p.o. until bedside swallow eval. A full dose adult aspirin. And then Home Daily aspirin; and Plavix continued High intensity statin Permissive hypertension. Control blood pressure with labetalol for systolic blood pressure of more than 220 or diastolic blood pressure of more than 120. MRI/MRAM of head; brain; and neck. Echocardiogram ordered. Placed on telemetry. In the setting of embolic stroke and patient with Watchman device and left atria appendage closure consider further discussion with cardiology. History of CAD status post multiple stents Guideline directed medical therapy of Coreg continued. Miscellaneous: Patient on Aldactone, also on Lasix; continued. Denies history of heart failure. Echocardiogram as above. History of COPD: Stable. Time spent in the patient's overall evaluation,decision-making process, review of diagnostic data, adjustment of management, discussion with other providers, nursing and ancillary staff involved in patient's care documentation, 70 minutes. Advance care planning: Discussed with patient and family advanced directives as well as CODE STATUS. Explained various CODE STATUS: FULL CODE, DNR CCA, DNR CCA with no intubation, and DNR CC- and what each meant. Patient elected to be a DNR CCA with no chest compression, no ventilator, and no defibrillator. Order was placed. Patient surrogate decision maker is his sister, Juanita Lawler. Time spent on discussion 16 minutes.
--- NOTE | 2024-02-21 15:35 | ECHOCS_ITS ---
Reason For Study: TIA/CVA Procedure This was a 2D Doppler, Color Flow transthoracic echocardiogram. The study was technically difficult. Exam performed portable in patient room. Left Ventricle Normal LV size. The left ventricular ejection fraction is 50 %. Mid-anteroseptal : Mildly hypokinetic. Right Ventricle ICD or pacer leads identified within the right ventricle. Normal RV size. Normal systolic function. Atria The left atrium is mildly enlarged. The right atrium is mildly enlarged. Bubble contrast study negative for right to left interatrial shunt. Mitral Valve Bileaflet diffuse mitral valve thickening. Mild (1+) eccentric mitral valve insufficiency. Tricuspid Valve Normal tricuspid valve. Mild tricuspid valve insufficiency. Pulmonary artery systolic pressure is 22 mmHg. Aortic Valve Trisinus/trileaflet aortic valve. Mild focal aortic valve calcification. Pulmonic Valve Normal pulmonic valve. Great Vessels Normal aortic root. The pulmonary artery is normal size. Normal inferior vena cava. Pericardium/Pleural No pericardial effusion. Medication Performed a rapid injection of agitated mix of 9 cc saline and 1cc air to assess for atrial septal defect. Diluted definity 2ml given slow IV push to enhance endocardial definition. MMode/2D Measurements & Calculations LVIDd: 4.9 cm IVSd: 1.4 cm Ao root diam: 3.5 cm LVIDs: 3.1 cm LVPWd: 1.0 cm RVDd: 4.2 cm FS: 36.9 % LAV(MOD-bp): 86.0 ml LVAd ap4: 31.0 cm2 SV(MOD-sp4): 47.2 ml LAV(MOD-bp) Indexed: 37.1 ml/m2 LVLd ap4: 8.6 cm LAV(MOD-sp2): 104.0 ml EDV(MOD-sp4): 94.3 ml LAV(MOD-sp4): 67.8 ml EDV(sp4-el): 95.3 ml LVAs ap4: 20.6 cm2 LVLs ap4: 7.6 cm ESV(MOD-sp4): 47.1 ml ESV(sp4-el): 47.3 ml EF(MOD-sp4): 50.0 % EF(sp4-el): 50.3 % SV(sp4-el): 48.0 ml LA A4 area: 23.5 cm2 LA dimension(2D): 3.9 cm RA A4 area: 21.5 cm2 TAPSE: 1.5 cm Doppler Measurements & Calculations MV E max florinda: 84.6 cm/sec Ao V2 max: 108.2 cm/sec LV V1 max: 83.9 cm/sec Ao max P.7 mmHg LV V1 max P.8 mmHg Ao V2 mean: 80.9 cm/sec LV V1 mean P.6 mmHg Ao mean P.9 mmHg LV V1 mean: 57.6 cm/sec Ao V2 VTI: 19.7 cm LV V1 VTI: 15.1 cm AV (velocity ratio): 0.77 PA V2 max: 78.9 cm/sec TR max florinda: 213.1 cm/sec TR max P.2 mmHg ECHO/Echo Complete W/ Contrast Interpretation Summary The left ventricular ejection fraction is 50 %. Mid-anteroseptal : Mildly hypokinetic ICD or pacer leads identified within the right ventricle. Contrast injection was performed. Ordering Physician: Homero Baker Referring Physician: Mitch Peña Performed By: Maryana Thompson RDCS
[2024-02-21 16:40] LABS: Hemoglobin A1c 5.9 % (3.8-5.6)
[2024-02-21] MEDS: Aspirin 325 MG Tablet PO (16:50)
--- NOTE | 2024-02-21 20:40 | CPS ---
Pt brought in own cpap from home. RT set up pt's home unit with distilled water. Ready for use.
[2024-02-21] MEDS: Pantoprazole Sodium 40 MG Tablet PO (21:15)
[2024-02-21] MEDS: Atorvastatin Calcium 80 MG Tablet PO (21:15)
[2024-02-21] MEDS: POTASSIUM CITRATE 10 MEQ TABLET.ER PO (21:15)
[2024-02-21] MEDS: Acetaminophen 325 MG Tablet 650 MG PO (21:15)
[2024-02-21] MEDS: Pregabalin 75 MG Capsule 150 MG PO (21:15)
[2024-02-21] MEDS: MELATONIN 3 MG TABLET PO (21:16)
[2024-02-22] VITALS (9 sets, daily range): BP systolic 103–112; BP diastolic 71–77; PULSE 59–77; RESP 16–18; TEMP 36.4–36.8; O2SAT 92–99; BMI 32.4
[2024-02-22 06:59] LABS: Absolute Lymphocyte Count 1.63 X10^3/uL (0.83-4.51); Absolute Neutrophil Count 5.1 X10^3/uL (2.0-7.7); Basophil# 0.06 X10^3/uL; Basophil% 0.8 % (0-1); Eosinophil# 0.13 X10^3/uL; Eosinophils% 1.6 % (0-5); Lymphocyte # 1.63 X10^3/ul (0.83-4.51); Lymphocyte % 20.7 % (19-41); Mean Corp Hgb Conc 32.6 g/dL (32-36); Mean Corpuscular Hgb 29.3 pg (27.0-32.0); Mean Corpuscular Volume 89.8 fL (80-94); Mean Platelet Vol. 10.2 fl (6.2-12.0); Monocyte# 0.92 X10^3/uL; Monocyte% 11.7 % (0-10); NRBC Flagged by Analyzer 0 % (0-5); Neutrophil # 5.12 X10^3/uL (2.7-7.7); Neutrophil % 64.9 % (47-70); Platelet Count 228 K/mm3 (150-450); RBC Distribution Width SD 52.4 fl (35.1-43.9); Red Blood Count 5.12 M/mm3 (4.6-6.2); White Blood Count 7.9 K/mm3 (4.4-11.0)
[2024-02-22 07:33] LABS: ALB/GLOB Ratio 0.7 RATIO (0.9-2.4); AST(SGOT) 14 U/L (15-37); Alanine Aminotransfer ALT/SGPT 29 U/L (16-61); Albumin, Serum 2.6 g/dL (3.2-5.0); Alkaline Phosphatase 69 U/L (45-117); Anion Gap 6 (5-15); BUN 15 mg/dL (7-18); Calcium,Total 8.3 mg/dL (8.5-10.1); Chloride 108 mmol/L (98-107); Cholesterol 123 mg/dL (200); Creatinine, Serum 1.36 mg/dL (0.70-1.30); EST Glomerular Filtration Rate 55 mL/min (>60); Est Glom Filt Rate - Afr Amer 66 mL/min (>60); Estimated Creatinine Clearance 63.42 ml/min; Globulin 3.8 g/dL (2.2-4.2); Glucose 94 mg/dL (74-106); High Density Lipoprotein 27 mg/dL; Potassium 3.8 mmol/L (3.5-5.1); Protein, Total 6.4 g/dL (6.4-8.2); Sodium Level 139 mmol/L (136-145); Triglycerides 89 mg/dL; Very Low Density Lipoprotein 18 mg/dL (5-40)
--- NOTE | 2024-02-22 08:36 | PN.HOSP_ITS ---
Reason for Visit Reason for Visit: Diagnoses Cerebral infarction due to unspecified occlusion or stenosis of right posterior cerebral artery (02/21/24) Cerebral infarction due to unspecified occlusion or stenosis of left posterior cerebral artery (02/21/24) Subjective Subjective Feels well. Objective Data Objective Data Vital Signs: Vital Signs Temp Pulse Resp BP Pulse Ox O2 Del Method O2 Flow Rate 36.6 C 72 16 104/72 93 Nasal Cannula 2 02/22/24 03:20 02/22/24 03:20 02/22/24 03:20 02/22/24 03:20 02/22/24 07:54 02/22/24 07:54 02/22/24 07:54 FiO2 0 02/21/24 23:30 Oxygen Flow Rate (L/min) 2 Oxygen Delivery Method Nasal Cannula Weight: 108.6 kg Body Mass Index (BMI) 32.4 Intake & Output: Intake and Output for Last 24 Hours 02/20/24 02/21/24 02/22/24 23:59 23:59 23:59 Intake Total 1100 / 1100 50 / 50 Balance 1100 / 1100 50 / 50 Lab / Micro Data 02/22/24 06:40 02/22/24 06:40 Labs: Laboratory Results - last 24 hr 02/21/24 10:42: WBC 7.8, RBC 5.37, Hgb 15.5, Hct 47.8, MCV 89.0, MCH 28.9, MCHC 32.4, RDW Std Deviation 51.8 H, RDW Coeff of Elias 15.9 H, Plt Count 237, MPV 11.1, Immature Gran % (Auto) 0.300, Neut % (Auto) 69.3, Lymph % (Auto) 16.6 L, M gissell % (Auto) 11.9 H, Eos % (Auto) 1.3, Baso % (Auto) 0.6, Absolute Neuts (auto) 5.4, Absolute Lymphs (auto) 1.30, Nucleated RBC % 0, PT 15.2 H, INR 1.2, Sodium 139, Potassium 3.8, Chloride 106, Carbon Dioxide 27.0, Anion Gap 6, BUN 19 H, C reatinine 1.42 H, Estim Creat Clear Calc 61.36, Est GFR (MDRD) Af Amer 63, Est GFR (MDRD) Non-Af 52 L, BUN/Creatinine Ratio 13.4, Glucose 98, Calcium 8.7, T otal Bilirubin 1.40 H, AST 11 L, ALT 29, Alkaline Phosphatase 72, Troponin I High Sens 9, Total Protein 6.7, Albumin 2.8 L, Globulin 3.9, Albumin/Globulin Ratio 0.7 L 02/21/24 13:05: Urine Color Yellow, Urine Clarity Clear, Urine pH 7.0, Ur Specific [place] 1.010, Urine Protein 15 H, Urine Glucose (UA) Normal, Urine Ketones 5 H, Urine Occult Blood Negative, Urine Nitrite Negative, Urine Bilirubin Negative, Urine Urobilinogen 4 H, Ur Leukocyte Esterase Negative, Urine RBC 0 SEEN, Urine WBC 0 SEEN, Ur Squamous Epith Cells 0-5 SEEN, Amorphous Sediment 1+, Urine Bacteria 1+, Urine Mucus 0 SEEN 02/21/24 14:49: Hemoglobin A1c 5.9 H 02/22/24 06:40: WBC 7.9, RBC 5.12, Hgb 15.0, Hct 46.0, MCV 89.8, MCH 29.3, MCHC 32.6, RDW Std Deviation 52.4 H, RDW Coeff of Elias 16.0 H, Plt Count 228, MPV 10.2, Immature Gran % (Auto) 0.300, Neut % (Auto) 64.9, Lymph % (Auto) 20.7, M gissell % (Auto) 11.7 H, Eos % (Auto) 1.6, Baso % (Auto) 0.8, Absolute Neuts (auto) 5.1, Absolute Lymphs (auto) 1.63, Nucleated RBC % 0, Sodium 139, Potassium 3.8, Chloride 108 H, Carbon Dioxide 25.0, Anion Gap 6, BUN 15, Creatinine 1.36 H, Estim Creat Clear Calc 63.42, Est GFR (MDRD) Af Amer 66, Est GFR (MDRD) Non-Af 55 L, BUN/Creatinine Ratio 11.0, Glucose 94, Calcium 8.3 L, Total Bilirubin 1.50 H, AST 14 L, ALT 29, Alkaline Phosphatase 69, Total Protein 6.4, Albumin 2.6 L, Globulin 3.8, Albumin/Globulin Ratio 0.7 L, Triglycerides 89, Cholesterol 123, LDL Cholesterol 78, VLDL Cholesterol 18, HDL Cholesterol 27 L Radiography Diagnostic Testing: Radiology Impression Head/Neck CTA 02/21/24 12:25 IMPRESSION: Moderate acute left posterior cerebral artery territory infarct. Mild acute right posterior cerebral artery territory infarct. No acute intracranial hemorrhage identified. Thrombus and occlusion of the mid left and distal right posterior cerebral arteries. No evidence for significant stenosis of the carotid or vertebral arteries of the neck. N.B. : Domenic Cornejo NP, confirmed on 02/21/2024 13:16:08 (ET) that the healthcare facility has received the radiology report. Electronically Signed: Susan Harmon MD at 13:10 EDT , Chest X-Ray 02/21/24 12:50 IMPRESSION: Mild atelectasis or inflammation the lung bases. Electronically Signed: Susan Harmon MD at 13:14 EDT , Physical Exam Const alert and no apparent distress HEENT head/scalp atraumatic and moist oral mucous membranes Eyes PERRL and EOMs intact bilaterally Resp normal respiratory effort and no retractions Neuro Neuro Narrative: Profound visual field deficits. In the upper quadrants but also slightly less prominent in lower quadrants as well. 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 Echo. PT OT ST. MRI waiting on compatibility with his pacemaker. Will not be able to be performed until February 23. * Delayed presentation. Pt presented on 02/20, but sx began on 02/19. Therefore, he was not a candidate for TNK * ASA, clopidogrel, HIS Chronic conditions: * CAD status post multiple stents: ASA, clopidogrel * COPD: stable. VTE prophylaxis: enoxaparin Code: DNRCCA, DNI. Charges/Coding Visit Charges Inpatient E&M: 89138 Subs Hosp L2
[2024-02-22] MEDS: Aspirin 81 MG TAB.CHEW PO (10:12)
[2024-02-22] MEDS: Carvedilol 3.125 MG TABLET PO ×2 (10:12→16:32)
[2024-02-22] MEDS: Cholecalciferol (VIT D3) 25 MCG TABLET (1,000 UNITS) 50 MCG PO (10:13)
[2024-02-22] MEDS: Spironolactone 25 MG Tablet 12.5 MG PO (10:13)
[2024-02-22] MEDS: Magnesium Chloride 64 MG Delay Rel.Tablet 128 MG PO (10:14)
[2024-02-22] MEDS: Furosemide 20 MG Tablet PO (10:14)
[2024-02-22] MEDS: Enoxaparin 40 MG/0.4 ML Syringe SC (10:14)
[2024-02-22] MEDS: Pantoprazole Sodium 40 MG Tablet PO ×2 (10:15→21:09)
[2024-02-22] MEDS: POTASSIUM CITRATE 10 MEQ TABLET.ER PO ×2 (10:15→21:09)
[2024-02-22] MEDS: Clopidogrel Bisulfate 75 MG Tablet PO (10:15)
[2024-02-22] MEDS: Pregabalin 75 MG Capsule 150 MG PO ×2 (10:30→21:09)
[2024-02-22] MEDS: Acetaminophen 325 MG Tablet 650 MG PO ×2 (10:31→21:09)
[2024-02-22] MEDS: 0.9% Saline Lock 10 ML Syringe IV (11:38)
--- NOTE | 2024-02-22 12:29 | CASEMGMT ---
ROMI HEBERT Assessment Face to Face with patient for initial transition planning/care coordination assessment. ROMI HEBERT introduced self and role at [facility], pt voices understanding. Pt is A&Ox3 and is resting comfortably in bed and is calm. However, the pt is currently displaying some minor forgetfulness. Pt states that it is OK to contact his sister for further questions. This ROMI HEBERT completed the assessment with the pt and then called the pt sister (Juanita) for verification. Care providers, pharmacy, and demographics verified. 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 Pt sister states that the pt used to wear additional oxygen at home but this was previously revoked. Pt has a cane at home. Denies further DME uses or needs. HHC/SNF: Denies history Pt goal: Return to PLOF Plan: TBD. Anticipate IPRU. PT 6-Click score is 18. OT 6-Click score is 15. Pt and pt sister are agreeable for further rehabilitation if the pt qualifies. Pt and pt sister state that they would prefer the pt to be placed closer to [address]/ where the pt sister resides. SW is aware and to start the referral process once appropriate. Tariq Roberts RN, CM
--- NOTE | 2024-02-22 13:22 | CASEMGMT ---
Social Work SW completed PHQ-9 w/pt. Pt scored a 4, pt indicating to SW the symptoms he is having are related to the stroke symptoms, rather than feeling down or depressed. He is expressing frustration w/the symptoms and in particular the vision issues. Support offered. Otherwise no other MH needs anticipated at this time. HENNY Hamm
--- NOTE | 2024-02-22 13:25 | CASEMGMT ---
Social Work SW spoke w/pt about discharge plan. Pt is agreeable to rehab, would like to go somewhere in [place] near where his sister lives. Pt is agreeable to SW following up w/his sister in regard to this. Pt normally lives alone and does not feel he can manage home alone at this time. SW called pt's sister Juanita in regard to discharge plan. SW explained spoke w/pt, he is agreeable to rehab somewhere in [place]. SW did create lists of both intermediate facilities and hospital based rehabs in [facility], in pt's insurance network, in pt's preferred geographic area([place]) and complete w/quality and resource use data. SW explained SNF level of care vs hospital based rehab level of care. Pt's sister would prefer pt go to hospital based rehab. SW reviewed w/pt's sister over the phone the list from [facility] of hospital based rehabs. She would like a referral sent to [facility]. SW explained will send the referral today, and SW will follow up Saturday. If pt were to improve the doctor may send him home tomorrow, otherwise SW will follow up Saturday. Pt's sister states understanding, though she does not think pt will be able to go home tomorrow. SW did send the referral to [facility] via [facility]. SW to follow up on Saturday. HENNY Hamm
[2024-02-22] MEDS: Atorvastatin Calcium 80 MG Tablet PO (21:10)
[2024-02-23] VITALS (8 sets, daily range): BP systolic 103–146; BP diastolic 51–77; PULSE 59–97; RESP 15–65; TEMP 36.4–36.7; O2SAT 13–98; BMI 32.4
--- NOTE | 2024-02-23 00:17 | CPS ---
Pt is on home cpap unit with 2L bleed in to keep sats above 89%
[2024-02-23] MEDS: Cholecalciferol (VIT D3) 25 MCG TABLET (1,000 UNITS) 50 MCG PO ×2 (08:28→08:31)
[2024-02-23] MEDS: Pantoprazole Sodium 40 MG Tablet PO ×2 (08:28→20:06)
[2024-02-23] MEDS: POTASSIUM CITRATE 10 MEQ TABLET.ER PO ×2 (08:28→20:05)
[2024-02-23] MEDS: Enoxaparin 40 MG/0.4 ML Syringe SC (08:29)
[2024-02-23] MEDS: Magnesium Chloride 64 MG Delay Rel.Tablet 128 MG PO (08:29)
[2024-02-23] MEDS: Spironolactone 25 MG Tablet 12.5 MG PO (08:30)
[2024-02-23] MEDS: Aspirin 81 MG TAB.CHEW PO (08:31)
[2024-02-23] MEDS: Clopidogrel Bisulfate 75 MG Tablet PO (08:31)
[2024-02-23] MEDS: Carvedilol 3.125 MG TABLET PO ×2 (08:33→17:23)
[2024-02-23] MEDS: Pregabalin 75 MG Capsule 150 MG PO ×2 (08:44→20:05)
--- NOTE | 2024-02-23 13:33 | PCM.PN.HOSP ---
Reason for Visit Reason for Visit: Diagnoses Cerebral infarction due to unspecified occlusion or stenosis of right posterior cerebral artery (02/21/24) Cerebral infarction due to unspecified occlusion or stenosis of left posterior cerebral artery (02/21/24) Subjective Subjective Still with upper visual field deficits and as well as peripheral really is best vision is more central and medial. No change. Objective Data Objective Data Vital Signs: Vital Signs Temp Pulse Resp BP Pulse Ox O2 Del Method O2 Flow Rate 36.4 C L 97 65 H 103/74 92 Nasal Cannula 2 02/23/24 04:00 02/23/24 04:00 02/23/24 04:00 02/23/24 04:00 02/23/24 09:16 02/23/24 08:27 02/23/24 08:27 FiO2 0 02/21/24 23:30 Oxygen Flow Rate (L/min) 2 Oxygen Delivery Method Nasal Cannula Weight: 108.6 kg Body Mass Index (BMI) 32.4 Intake & Output: Intake and Output for Last 24 Hours 02/21/24 02/22/24 02/23/24 23:59 23:59 23:59 Intake Total 1100 / 1100 690 / 690 Balance 1100 / 1100 690 / 690 Lab / Micro Data 02/22/24 06:40 02/22/24 06:40 Physical Exam Const alert and no apparent distress HEENT head/scalp atraumatic and moist oral mucous membranes Eyes EOMs intact bilaterally Resp normal respiratory effort and no retractions Extremity normal to inspection Neuro oriented x3, CN's II-XII intact bilaterally, moves all extremities and no focal motor deficits Neuro Narrative: Impaired upper visual field deficits where he is not able to discern anything and has haziness in the periphery in the medial and lower quadrants on. 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 Echo. PT OT ST. MRI waiting on compatibility with his pacemaker. Will not be able to be performed until February 23. Echo shows an EF of 50%. Mid anteroseptal area mildly hypokinetic. No baseline echocardiogram available to be compare to. Delayed presentation. Pt presented on 02/20, but sx began on 02/19. Therefore, he was not a candidate for TNK ASA, clopidogrel, HIS Chronic conditions: CAD status post multiple stents: ASA, clopidogrel COPD: stable. VTE prophylaxis: enoxaparin Code: DNRCCA, DNI. Charges/Coding Visit Charges Inpatient E&M: 48969 Subs Hosp L2
[2024-02-23] MEDS: Acetaminophen 325 MG Tablet 650 MG PO (15:39)
[2024-02-23] MEDS: Atorvastatin Calcium 80 MG Tablet PO (20:05)
[2024-02-23] MEDS: Senna/Docusate Sodium 1 Tablet 2 TABLET PO (20:05)
[2024-02-24] VITALS (12 sets, daily range): BP systolic 97–143; BP diastolic 60–88; PULSE 59–84; RESP 12–18; TEMP 36.4–36.8; O2SAT 92–97; BMI 32.4
[2024-02-24] MEDS: Acetaminophen 325 MG Tablet 650 MG PO ×2 (00:10→12:12)
[2024-02-24] MEDS: Enoxaparin 40 MG/0.4 ML Syringe SC (09:28)
[2024-02-24] MEDS: Pantoprazole Sodium 40 MG Tablet PO ×2 (09:30→21:34)
[2024-02-24] MEDS: Pregabalin 75 MG Capsule 150 MG PO ×2 (09:30→21:34)
[2024-02-24] MEDS: Clopidogrel Bisulfate 75 MG Tablet PO (09:30)
[2024-02-24] MEDS: Carvedilol 3.125 MG TABLET PO ×2 (09:30→15:56)
[2024-02-24] MEDS: Aspirin 81 MG TAB.CHEW PO (09:30)
[2024-02-24] MEDS: POTASSIUM CITRATE 10 MEQ TABLET.ER PO ×2 (09:30→21:34)
[2024-02-24] MEDS: Spironolactone 25 MG Tablet 12.5 MG PO (09:31)
[2024-02-24] MEDS: Magnesium Chloride 64 MG Delay Rel.Tablet 128 MG PO (09:31)
[2024-02-24] MEDS: Furosemide 20 MG Tablet PO (09:34)
--- NOTE | 2024-02-24 10:35 | CASEMGMT ---
Addendum entered by Pebbles Montemayor 02/24/24 11:12: left for patient liason @ [facility] to check on status of referral. Pebbles Montemayor DC Planning Asst. Original Note: Discharge Planning Updates sent to [facility]. Pebbles Montemayor DC Planning Asst.
--- NOTE | 2024-02-24 10:45 | MRI_ITS ---
STUDY: MRI BRAIN WITHOUT CONTRAST REASON FOR EXAM: Male, 73 years old. CVA TECHNIQUE: Standardized multiplanar fat and water weighted pulse sequences were obtained. COMPARISON: CTA of the brain dated February 13, 2024. Head CT dated September 22, 2023. FINDINGS: Moderate acute infarction in the inferior and medial aspect of the left temporal lobe and mild acute infarction in the posterior medial aspect of the right temporal lobe and in the parasagittal region of the occipital lobe corresponds to thrombotic occlusions of the bilateral posterior cerebral arteries seen on the recent CTA of the head. There is moderate cerebral atrophy with widening of the extra-axial spaces and ventricular dilatation. There are multiple white matter hyperintensities, distributed throughout the deep white matter tracts of the cerebral hemispheres, consistent with moderate chronic white matter ischemic changes. Normal T2* images of the brain without demonstrated susceptibility artifact. There is no demonstrated hemosiderin stain. Normal bilateral basal ganglia. Normal thalami. There is no extra-axial fluid accumulation. Normal remaining flow voids within the major intracranial circulation suggesting patency by spin echo criteria. Normal sella turcica, pituitary gland, infundibular stalk, optic chiasm and hypothalamus. Normal tectal plate and pineal gland. Normal midbrain, luca and medulla. Normal cerebellum. Normal basal cisterns. Normal bilateral temporal bones. Normal bilateral internal auditory canals. No demonstrated orbital abnormality, within the constraints of a routine brain study. Normal visualized paranasal sinuses. Normal calvarium and skull base. Normal visualized soft tissue structures. Normal visualized upper cervical spine. MRI/Brain without Contrast IMPRESSION: 1. Moderate acute infarction in the inferior and medial aspect of the left temporal lobe and mild acute infarction in the posterior medial aspect of the right temporal lobe and in the parasagittal region of the occipital lobe corresponds to thrombotic occlusions of the bilateral posterior cerebral arteries seen on the recent CTA of the head. 2. There is no demonstrated hemorrhagic conversion or significant interval change from the prior exam. Electronically Signed: Alfredo Espino MD at 15:37 EDT ,
--- NOTE | 2024-02-24 11:58 | CASEMGMT ---
Addendum entered by Lyndsey Sr 02/24/24 12:12: Juanita from [facility]'s phone number is [phone]. Lyndsey SWARTZ Original Note: received a call from Juanita at [facility]. Juanita said they are reviewing the referral at this time and she will get back to soon. Lyndsey SWARTZ
--- NOTE | 2024-02-24 12:06 | CON.PCM.NE_ITS ---
Assessment and Plan: Stroke Assessment/Plan YESY LAWLER is a 73 year old RH M exsmoker with a history of Afib s/p Watchmans (~2 weeks ago at [facility]), HTN, and COPD who presents for evaluation of headache, confusion, and vision changes. The patients symptoms started 02/20/24 when he felt off, confused with severe BANDA. He also noted difficulty seeing (top up). He presented to ER on 02/21/24. CT brain shows left NETWORK INFRASTRUCTURE ARCHITECT hypodensity. CTA head shows bilateral NETWORK INFRASTRUCTURE ARCHITECT occlusion. He was admitted. Of note, he stopped his coumadin last week (per cardiology) and is on home Asa/plavix. Currently he is on Asa/plavix, lovenox SQ, and lipitor 80. 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 ASSESSMENT/PLAN: Acute NETWORK INFRASTRUCTURE ARCHITECT ischemic stroke 1) Recommend MRI brain and TTE. 2) Recommend cardiology consult to evaluate the Watchman's. 3) Continue Asa/plavix and lipitor for now 4) DVT prophylaxis with SCDs and Lovenox SQ Messaged primary team via backline. HPI Consult Data Date of Consult: 02/24/24 HPI Narrative HPI Narrative: YESY LAWLER is a 73 year old RH M exsmoker with a history of Afib s/p Watchmans (~2 weeks ago at [facility]), HTN, and COPD who presents for evaluation of headache, confusion, and vision changes. The patients symptoms started 02/20/24 when he felt off, confused with severe BANDA. He also noted difficulty seeing (top up). He presented to ER on 02/21/24. CT brain shows left NETWORK INFRASTRUCTURE ARCHITECT hypodensity. CTA head shows bilateral NETWORK INFRASTRUCTURE ARCHITECT occlusion. He was admitted. Of note, he stopped his coumadin last week (per cardiology) and is on home Asa/plavix. Currently he is on Asa/plavix, lovenox SQ, and lipitor 80. [facility] Medical History Afib HTN (hypertension) Myocardial infarct COPD (chronic obstructive pulmonary disease) Medical History unable to obtain Home Medications ?Medication ?Instructions ?Recorded ?Last Taken ?Type aspirin 81 mg tablet,delayed 81 mg PO DAILY HEART [facility] 02/21/24 Unknown History release (Adult Aspirin Regimen) carvedilol 3.125 mg tablet 3.125 mg PO BID HEART 02/21/24 Unknown History cholecalciferol (vitamin D3) 50 50 mcg PO DAILY VITAMIN 02/21/24 Unknown History mcg (2,000 unit) capsule clopidogrel 75 mg tablet 75 mg PO DAILY BLOOD THINNER 02/21/24 Unknown History magnesium oxide 400 mg PO DAILY SUPPLEMENT 02/21/24 Unknown History pantoprazole 40 mg tablet,delayed 40 mg PO BID STOMACH ACID 02/21/24 Unknown History release potassium citrate 10 mEq (1,080 10 meq PO BID SUPPLEMENT 02/21/24 Unknown History mg) tablet,extended release pregabalin 150 mg capsule (Lyrica) 150 mg PO BID NERVE PAIN 02/21/24 Unknown History rosuvastatin 5 mg tablet 5 mg PO DAILY CHOLESTEROL 02/21/24 Unknown History spironolactone 25 mg tablet 12.5 mg PO DAILY HIGH BLOOD 02/21/24 Unknown History (Aldactone) PRESSURE torsemide 20 mg tablet 10 mg PO QODAY FLUID RETENTION 02/21/24 Unknown History Allergy/AdvReac Type Severity Reaction Status Date / Time No Known Allergies Allergy Verified 02/21/24 09:52 Family History Other Lung cancer Family History other Surgical History Pacemaker Presence of Watchman left atrial appendage closure device Surgical History unable to obtain Social History Smoking Status: Former smoker Vital Signs Vital Signs Vital Signs: 02/23/24 16:00 02/23/24 16:00 02/23/24 19:38 Temperature 98.1 F Temperature Source Oral Pulse Rate 60 60 Pulse Strength Respiratory Rate 16 16 Respiratory Effort Normal Non-Labored Respiratory Depth Normal Respiratory Pattern Normal Blood Pressure 108/65 Blood Pressure Mean 79 Blood Pressure Source Monitor Blood Pressure Position Blood Pressure Location Pulse Ox 94 Oxygen Delivery Method Room Air Room Air Room Air 02/23/24 20:00 02/23/24 20:10 02/24/24 00:00 Temperature 97.8 F 97.6 F L Temperature Source Oral Oral Pulse Rate 59 L 67 Pulse Strength Normal (2+) Respiratory Rate 15 12 Respiratory Effort Respiratory Depth Respiratory Pattern Blood Pressure 106/68 125/74 H Blood Pressure Mean 80 91 Blood Pressure Source Monitor Monitor Blood Pressure Position Semi-Fowlers Semi-Fowlers Blood Pressure Location Right Arm Right Arm Pulse Ox 94 97 Oxygen Delivery Method Room Air Room Air 02/24/24 00:15 02/24/24 04:00 02/24/24 07:00 Temperature 98.3 F Temperature Source Oral Pulse Rate 61 Pulse Strength Respiratory Rate 14 Respiratory Effort Normal Non-Labored Respiratory Depth Normal Respiratory Pattern Normal Blood Pressure 97/66 Blood Pressure Mean 76 Blood Pressure Source Monitor Blood Pressure Position Supine Blood Pressure Location Right Arm Pulse Ox 97 93 Oxygen Delivery Method Room Air Room Air Room Air 02/24/24 08:00 02/24/24 08:00 02/24/24 08:00 Temperature 97.6 F L 97.6 F L Temperature Source Oral Temporal Pulse Rate 59 L 59 L 59 L Pulse Strength Respiratory Rate 16 16 16 Respiratory Effort Normal Respiratory Depth Normal Respiratory Pattern Normal Blood Pressure 102/68 102/68 Blood Pressure Mean 79 79 Blood Pressure Source Monitor Monitor Blood Pressure Position Sitting Semi-Fowlers Blood Pressure Location Left Arm Right Arm Pulse Ox 95 95 95 Oxygen Delivery Method Room Air Room Air Room Air 02/24/24 10:00 Temperature Temperature Source Pulse Rate Pulse Strength Normal (2+) Respiratory Rate Respiratory Effort Respiratory Depth Respiratory Pattern Blood Pressure Blood Pressure Mean Blood Pressure Source Blood Pressure Position Blood Pressure Location Pulse Ox Oxygen Delivery Method Weight Weight: 108.6 kg Body Mass Index (BMI) 32.4 NIHSS NIHSS Nursing Documentation NIHSS Nursing Documentation: NIH Stroke Scale Start: 02/21/24 10:02 Freq: Status: Discharge Protocol: Activity Type Activity Date Activity User E-sign Co-sign Detail Recorded Client Recorded Date Recorded By Document 02/21/24 10:03 [facility] [id number] 02/21/24 10:03 T 02/21/24 10:03 NIH Stroke Scale [NIHSS] A score of 0 is normal or asymptomatic . Total possible score is 42. Inpatient: RN or Physician to activate a stroke alert for onset of new stroke symptoms or with NIHSS increase >/= 3 points. Following change in neurological status, NIHSS will be performed per physician order or more frequently PRN. -1a. Level of Consciousness Alert; keenly responsive -1b. LOC Questions Answers BOTH questions correctly. -1c. LOC Commands Performs both tasks correctly . -2. Best Gaze Normal -3. Visual Partial hemianopia -4. Facial Palsy Normal symmetrical movements -5a. Left Arm No drift; arm holds 90 (or 45 ) degrees for full 10 seconds -5b. Right Arm No drift; arm holds 90 (or 45 ) degrees for full 10 seconds -6a. Left Leg No drift; leg holds 30-degree position for full 5 seconds -6b. Right Leg No drift; leg holds 30-degree position for full 5 seconds -7. Limb Ataxia Absent -8. Sensory Normal; no sensory loss -9. Best Language No aphasia; normal -10. Dysarthria Normal -11. Extinction and Inattention No abnormality -Total 1 Query Text:A score of 0 is normal or asymptomatic. Total possible score is 42 . ED: Notify Physician for NIHSS increase by > / = 3 points. Inpatient: RN or Physician to activate a stroke alert for NIHSS increase of > / = 3 points. NIHSS: Ischemic Stroke/TIA Start: 02/21/24 15:35 Text: For PCU Patients: NIH and Neuro Check every 4 Status: Active hours, PRN and with change in RN caregiver. Freq: Q4H Protocol: Activity Type Activity Date Activity User E-sign Co-sign Detail Recorded Client Recorded Date Recorded By Document 02/24/24 08:00 LW [id number] 02/24/24 11:10 LW 02/24/24 08:00 -1a. Level of Consciousness Alert; keenly responsive -1b. LOC Questions Answers BOTH questions correctly. -1c. LOC Commands Performs both tasks correctly . -2. Best Gaze Normal -3. Visual Partial hemianopia -4. Facial Palsy Normal symmetrical movements -5a. Left Arm No drift; arm holds 90 (or 45 ) degrees for full 10 seconds -5b. Right Arm No drift; arm holds 90 (or 45 ) degrees for full 10 seconds -6a. Left Leg No drift; leg holds 30-degree position for full 5 seconds -6b. Right Leg No drift; leg holds 30-degree position for full 5 seconds -7. Limb Ataxia Absent -8. Sensory Normal; no sensory loss -9. Best Language No aphasia; normal -10. Dysarthria Normal -11. Extinction and Inattention No abnormality -Total 1 Query Text:A score of 0 is normal or asymptomatic. Total possible score is 42 . ED: Notify Physician for NIHSS increase by > / = 3 points. Inpatient: RN or Physician to activate a stroke alert for NIHSS increase of > / = 3 points. Coma Scale [Assess] -Eye Opening Spontaneous -Motor Obeys Commands -Verbal Oriented [Total] -Coma Scale Total 15 NIHSS 1a. Level of Consciousness: Alert; keenly responsive 1b. LOC Questions: Answers BOTH questions correctly. 1c. LOC Commands: Performs both tasks correctly. 2. Best Gaze: Normal 3. Visual: Partial hemianopia 4. Facial Palsy: Normal symmetrical movements 5a. Left Arm: No drift; arm holds 90 (or 45) degrees for full 10 seconds 5b. Right Arm: No drift; arm holds 90 (or 45) degrees for full 10 seconds 6a. Left Leg: No drift; leg holds 30-degree position for full 5 seconds 6b. Right Leg: No drift; leg holds 30-degree position for full 5 seconds 7. Limb Ataxia: Absent 8. Sensory: Normal; no sensory loss 9. Best Language: No aphasia; normal 10. Dysarthria: Normal 11. Extinction and Inattention: No abnormality Total: 1 Physical Exam Neuro Neuro Narrative: Neurological examination: General: The patient appears nutritionally appropriate, well-groomed, and appears comfortable in no acute distress. Mental Status: The patient?s mental status was normal including orientation. Language was intact. Cranial nerves: Visual nye suggestive of partial RVF, but states he can see fingers, and extra-ocular motion was intact. Face motion symmetric. Tongue was midline with normal movement. There was no dysarthria. Motor: Normal strength and tone in all four extremities. No pronator drift. Sensation: Intact light touch bilaterally. Coordination: Bilateral finger to nose was normal. There was no dysmetria. Gait: deferred Lab / Micro Data 02/22/24 06:40 02/22/24 06:40 Active Medications Active Medications Active Medications: Current Medications Generic Name Dose Route Start Last Admin Trade Name Freq PRN Reason Stop Dose Admin Acetaminophen 650 mg 02/21/24 15:35 02/24/24 00:10 Acetaminophen 325 Mg Tablet PO 650 mg Q6H PRN PRN Administration Pain 1-10 Or Fever>100.7 Aspirin 81 mg 02/22/24 08:00 02/24/24 09:30 Aspirin 81 Mg Tab.Chew PO 81 mg BREAKFAST NURIA Administration Atorvastatin Calcium 80 mg 02/21/24 22:00 02/23/24 20:05 Atorvastatin Calcium 80 Mg Tablet PO 80 mg QHS NURIA Administration Carvedilol 3.125 mg 02/21/24 22:00 02/24/24 09:30 Carvedilol 3.125 Mg Tablet PO 3.125 mg BIDCM NURIA Administration Protocol Cholecalciferol 50 mcg 02/22/24 08:00 02/23/24 08:31 Cholecalciferol (Vit D3) 25 Mcg Tablet (1,000 Units) PO 50 mcg DAILYCM NURIA Administration Clopidogrel Bisulfate 75 mg 02/22/24 10:00 02/24/24 09:30 Clopidogrel Bisulfate 75 Mg Tablet PO 75 mg DAILY NURIA Administration Enoxaparin Sodium 40 mg 02/22/24 10:00 02/24/24 09:28 Enoxaparin 40 Mg/0.4 Ml Syringe SC 40 mg DAILY NURIA Administration Furosemide 20 mg 02/22/24 10:00 02/24/24 09:34 Furosemide 20 Mg Tablet PO 20 mg QODAY NURIA Administration Magnesium Chloride 128 mg 02/22/24 10:00 02/24/24 09:31 Magnesium Chloride 64 Mg Delay Rel.Tablet PO 128 mg DAILY NURIA Administration Melatonin 3 mg 02/21/24 15:35 02/21/24 21:16 Melatonin 3 Mg Tablet PO 3 mg QHS PRN PRN Administration INSOMNIA Ondansetron HCl 4 mg 02/21/24 15:35 Ondansetron 4 Mg/2 Ml Vial IV Q8H PRN PRN NAUSEA/VOMITING Pantoprazole Sodium 40 mg 02/21/24 22:00 02/24/24 09:30 Pantoprazole Sodium 40 Mg Tablet PO 40 mg BID NURIA Administration Potassium Citrate 10 meq 02/21/24 22:00 02/24/24 09:30 Potassium Citrate 10 Meq Tablet.Er PO 10 meq BID NURIA Administration Pregabalin 150 mg 02/21/24 22:00 02/24/24 09:30 Pregabalin 75 Mg Capsule PO 150 mg BID NURIA Administration Senna/Docusate Sodium 2 tablet 02/21/24 15:35 02/23/24 20:05 Senna/Docusate Sodium 1 Tablet PO 2 tablet BID PRN PRN Administration Constipation Sodium Chloride 10 - 40 ml 02/21/24 15:47 02/22/24 11:38 0.9% Saline Lock 10 Ml Syringe IV 10 ml UD PRN Administration SALINE FLUSH Spironolactone 12.5 mg 02/22/24 10:00 02/24/24 09:31 Spironolactone 25 Mg Tablet PO 12.5 mg DAILY NURIA Administration Protocol
--- NOTE | 2024-02-24 14:13 | CASEMGMT ---
ALLISON spoke with patient's sister Juanita and let her know SW is still waiting on [facility] to give an answer. Juanita said they are also in agreement with [facility] if Yariel would say no. ALLISON did ask Veronika to review patient. Lyndsey SWARTZ
--- NOTE | 2024-02-24 14:26 | PN.HOSP_ITS ---
Reason for Visit Reason for Visit: Confusion/left eye visual changes Subjective Subjective Mr. Pineda is a 73-year-old white male who presented to the emergency department at [facility] on 02/21/2024 with some altered mental status and left eye visual changes. Patient reported he had a Watchman device placement about 2 weeks ago at [facility] and his Coumadin was stopped at the time of discharge postprocedure. He had been taking Plavix and aspirin daily. On the morning he presented to emergency department he reported that he woke up and felt a bit off and had visual changes where he could not see the top part of his left visual field. He indicated it was blurry but not to the point where he could not see. He had been having a headache as well. He talked to his sister and because he was acting a bit confused they called an ambulance and he presented to the emergency department. Vital signs on presentation showed temperature of 97, heart rate 100, blood pressure initially was 140/116 with a repeat of 139/94, respiratory rate is 12 and oxygen saturations were 96% on room air. His CBC was unremarkable. INR was 1.2. His chemistry panel showed normal electrolytes and a BUN of 19 and creatinine of 1.42 which appears consistent with his baseline. Liver functions were unremarkable other than mildly elevated bilirubin at 1.4 which seems to be chronic. Hemoglobin A1c was obtained and found to be 5.9. Lipid panel was obtained and he was found to have a total cholesterol 123/LDL 78/HDL 27/triglycerides 89. His UA was not consistent with infection. Chest x-ray was unremarkable other than some mild atelectasis at the bases bilaterally. A CTA of his head and neck was performed and demonstrated moderate acute left posterior cerebellar artery territory infarct with mild acute right posterior cerebellar territory infarct and no acute intracranial hemorrhage. There was thrombus and occlusion in the mid left and distal right posterior cerebral arteries with no evidence of significant stenosis in the carotid or vertebral arteries. The case was discussed with [facility] neurology and they recommended ongoing medical therapy here at the hospital. Echocardiogram was done on 02/21/2024 and showed an EF of 50% with a mildly hypokinetic mid anterior septal region and ICD/pacer wire was identified in the right ventricle. Bubble study was unremarkable. MRI was performed on 02/24/2024 and pending at this time and cardiology consultation was placed. Initial NIH was 1 and patient has remained stable with an NIH of 1 for visual deficits. Patient still complaining of some mild headache with visual changes. Awaiting his MRI. Both he and his sister feel that he needs some ongoing rehab at discharge and request for admission has been made in [place] which would be his first option and then to the rehab unit here. Objective Data Objective Data Vital Signs: Vital Signs Temp Pulse Resp BP Pulse Ox O2 Del Method O2 Flow Rate 97.8 F 69 16 112/76 94 Room Air 2 02/24/24 12:00 02/24/24 12:00 02/24/24 12:00 02/24/24 12:00 02/24/24 12:00 02/24/24 12:00 02/23/24 08:27 FiO2 0 02/21/24 23:30 Oxygen Flow Rate (L/min) 2 Oxygen Delivery Method Room Air Weight: 108.6 kg Body Mass Index (BMI) 32.4 Intake & Output: Intake and Output for Last 24 Hours 02/22/24 02/23/24 02/24/24 23:59 23:59 23:59 Intake Total 690 / 690 700 / 700 300 / 300 Output Total 300 / 300 Balance 690 / 690 400 / 400 300 / 300 Lab / Micro Data 02/22/24 06:40 02/22/24 06:40 Physical Exam Const alert, oriented x3, no apparent distress, healthy appearing and well nourished; Negative for average body habitus Constitutional Narrative: Obese, older, white male, sitting up in a chair at the bedside, appears comfortable, nontoxic, sister at the bedside HEENT head/scalp atraumatic, moist oral mucous membranes and oropharynx normal HEENT Narrative: Mallampati 3, no thrush Head and Scalp: normocephalic Eyes PERRL, EOMs intact bilaterally and conjunctivae normal Eyes Narrative: No scleral icterus Neck no lymphadenopathy and supple Neck Narrative: Trachea midline, no thyroid enlargement Resp normal respiratory effort, no retractions, no use of accessory muscles and clear to auscultation bilaterally Auscultation: Negative for rales, rhonchi or wheezes Cardio regular rate, regular rhythm, S1 normal heart sound, S2 normal heart sound, no murmurs, no rub, no gallops and no clicks GI normal to inspection, nondistended, normoactive bowel sounds, soft to palpation and non-tender Extremity no clubbing, cyanosis or edema Extremity Narrative: Radial and pedal pulses are 2+ Skin no rashes or lesions noted, no wounds, skin turgor normal, no jaundice, no petechiae and no mottling Neuro oriented x3, moves all extremities and no focal motor deficits Neuro Narrative: Feel [place] changes with loss of top visual nye left greater than right Sensorium / Orientation: awake, alert, oriented to person and oriented to place Speech: speech normal Psych affect normal Psych Narrative: Very pleasant, interacts appropriately Assessment & Plan Assessment/Plan (1) CVA (cerebral vascular accident): (2) Acute alteration in mental status: (3) Loss of vision: (4) Afib: PLAN: Plan 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 with resultant vision changes -Stroke already showed up on presentation -Occlusion noted in bilateral posterior cerebral arteries on initial CTA -Medical therapy was recommended by [facility] neurology -MRI is pending -Echocardiogram shows EF of 50% with stable cardiac function compared to previous -With 3 treatment Watchman device we will perform RADHA tomorrow morning -Discussed case with cardiology and plan is to transition off aspirin for now and maintain Plavix and initiate Eliquis if okay with neurology -Continue Lipitor and will need to increase rosuvastatin from 5 to 10 mg at discharge -Continue PT/OT -Family hoping for acute rehab at discharge as patient lives alone and is having some balance issues as well as visual changes -NIH is currently 1 and has been stable there -4 right visual field deficit -Neurology following-appreciate input -Will have patient follow-up as an outpatient at [facility] stroke clinic after discharge Toxic/metabolic encephalopathy -resolved History of paroxysmal atrial fibrillation status post Watchman device -Watchman device placed 2 weeks ago -Had been on aspirin 81 mg daily and Plavix 75 mg daily -Discussed with Dr. 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 twice daily until his outpatient follow-up with him and continue Plavix/hold aspirin CAD/HTN/HPL -History of previous PCI -Stop aspirin with initiation of Eliquis for now next-continue Plavix -Continue carvedilol 3.125 mg p.o. twice daily -Continue Aldactone -Continue torsemide -Continue statin 80 mg daily -Will need increase from 5 mg to 10 mg with rosuvastatin as LDL is 76 and not at goal for stroke -Will make changes discharge as patient currently is on atorvastatin GERD -Continue PPI twice daily History of COPD -No acute issues -Continue as needed nebulizers Neuropathy -Continue home [place] CKD stage IIIa -GFR is between 50 and 60 -Serum creatinine is stable next-monitor Obesity -BMI 32.5 -Complicates treatment, prognosis, outcome -Recommend weight loss DVT prophylaxis -Eliquis 5 mg p.o. twice daily as long as okay with neurology CODE STATUS -DNR CCA with no intubation as clarified on admission Charges/Coding Visit Charges Inpatient E&M: 89510 Subs Hosp L3
--- NOTE | 2024-02-24 14:44 | CASEMGMT ---
Addendum entered by Lyndsey Sr 02/24/24 15:48: [facility] accepted patient. SW will notify patient and his sister tomorrow. Lyndsey SWARTZ Original Note: Juanita from [facility] has declined patient. They feel he is doing too well. Await [facility]'s response. Lyndsey SWARTZ
--- NOTE | 2024-02-24 16:57 | PCM.HOSP.N ---
Hospitalist Note MRI does show moderate size infarct. Discussed extensively with neurology and since he requires Plavix plus Eliquis we will hold starting Eliquis until poststroke day 7 which will be 02/28/2024. Continue aspirin and Plavix for now until we can start Eliquis. This will hopefully decrease his risk for hemorrhagic conversion. Plan is for RADHA tomorrow. Neurology felt that if we could do I will Eliquis alone he can start on 02/26/2024.
[2024-02-24] MEDS: Atorvastatin Calcium 80 MG Tablet PO (21:34)
[2024-02-25] VITALS (7 sets, daily range): BP systolic 99–119; BP diastolic 62–105; PULSE 57–91; RESP 16–18; TEMP 36.1–36.6; O2SAT 93–97; BMI 32.4
[2024-02-25 05:31] LABS: Absolute Lymphocyte Count 1.52 X10^3/uL (0.83-4.51); Absolute Neutrophil Count 3.5 X10^3/uL (2.0-7.7); Basophil# 0.08 X10^3/uL; Basophil% 1.3 % (0-1); Eosinophil# 0.23 X10^3/uL; Eosinophils% 3.8 % (0-5); Hematocrit 47.4 % (40-54); Hemoglobin 15.4 g/dL (13.0-16.5); Lymphocyte # 1.52 X10^3/ul (0.83-4.51); Lymphocyte % 25.1 % (19-41); Mean Corp Hgb Conc 32.5 g/dL (32-36); Mean Corpuscular Volume 89.3 fL (80-94); Mean Platelet Vol. 10.6 fl (6.2-12.0); Monocyte# 0.74 X10^3/uL; Monocyte% 12.2 % (0-10); NRBC Flagged by Analyzer 0 % (0-5); Neutrophil # 3.47 X10^3/uL (2.7-7.7); Neutrophil % 57.4 % (47-70); Platelet Count 258 K/mm3 (150-450); RBC Distribution Width CV 15.8 % (11.6-14.6); RBC Distribution Width SD 51.3 fl (35.1-43.9); Red Blood Count 5.31 M/mm3 (4.6-6.2); White Blood Count 6.1 K/mm3 (4.4-11.0)
[2024-02-25 06:11] LABS: Anion Gap 5 (5-15); BUN 16 mg/dL (7-18); BUN/Creat Ratio 12.2 RATIO (10-20); Chloride 106 mmol/L (98-107); Creatinine, Serum 1.31 mg/dL (0.70-1.30); EST Glomerular Filtration Rate 57 mL/min (>60); Est Glom Filt Rate - Afr Amer 69 mL/min (>60); Estimated Creatinine Clearance 65.84 ml/min; Glucose 102 mg/dL (74-106); Potassium 4.2 mmol/L (3.5-5.1); Sodium Level 139 mmol/L (136-145)
[2024-02-25 06:14] LABS: Magnesium 2.2 mg/dL (1.6-2.6)
--- NOTE | 2024-02-25 10:50 | CASEMGMT ---
SW [facility] feel [facility] too well. [facility] accepted patient. They were both in agreement with this plan. Plan: d/c to [facility]. Lyndsey SWARTZ
--- NOTE | 2024-02-25 12:00 | ECHOTEE_ITS ---
Reason For Study: CVA Medication RADHA probe 6VT-D (SN [id number]) passed without difficulty. No complications were noted. Cetacaine Topical [place] given X3 orally. Versed 2 mg given slow IVP. Fentanyl 50 mcg given slow IVP. Performed a rapid injection of agitated mix of 9 cc saline and 1cc air to assess for atrial septal defect. Left Ventricle Normal LV size. Left ventricular systolic function is normal. The left ventricular ejection fraction is 55 %. No regional wall motion abnormalities noted. Right Ventricle Normal RV size. ICD or pacer leads identified within the right ventricle. The right ventricular wall motion is normal. Atria Cannot rule out tiny PFO. The left atrium is moderately enlarged. No thrombus is detected in the left atrial appendage. Left atrial appendage has an occluder device noted. There is moderate sponatenous contrast in the left atrium. Normal right atrium. ICD or pacer leads identified within the right atrium. Mitral Valve Normal mitral valve. Tricuspid Valve Normal tricuspid valve. Aortic Valve Trisinus/trileaflet aortic valve. Mild focal aortic valve calcification. Pulmonic Valve Normal pulmonic valve. Vessels Normal aortic root. Normal arch. The pulmonary artery is normal size. Normal pulmonary veins. Pericardium No pericardial effusion. ECHO/Echo Transesophageal (RADHA) Interpretation Summary Normal LV size. Left ventricular systolic function is normal. The left ventricular ejection fraction is 55 %. The left atrium is moderately enlarged. No thrombus is detected in the left atrial appendage. Left atrial appendage has an occluder device noted There is moderate sponatenous contrast in the left atrium. No obvious thrombus or source of embolus noted. Ordering Physician: Mariana Nj Referring Physician: Mitch Peña Performed By: Bridgette Schmid, RDCS, RVT
--- NOTE | 2024-02-25 13:38 | DS.PCM_ITS ---
Providers Date of Admission: 02/21/24 Date of Discharge: 02/25/24 Primary Care Physician: Dr. Mitch Peña MD Consultations 02/24/24 07:30 neuro [Consult: Tele-Neurology] Routine Consulting Provider: [facility] Reason for Consult: stroke EMERGENT Consult: No MD Notified: Yes Date Notified: 02/24/24 Time Notified: 08:01 Method of Notification: Answering Service Nursing Unit Staff Notify [facility] of Tele-Neurology Consult: Yes Reason For Visit: ACUTE CVA Diagnosis Discharge Diagnosis (1) CVA (cerebral vascular accident): Status: Acute Code(s): I63.9 - Cerebral infarction, unspecified (2) Acute alteration in mental status: Status: Acute Code(s): R41.82 - Altered mental status, unspecified (3) Loss of vision: Status: Acute Code(s): H54.7 - Unspecified visual loss (4) Afib: Status: Acute Code(s): I48.91 - Unspecified atrial fibrillation Medications at Discharge Home Medications carvedilol 3.125 mg tablet 3.125 mg PO BID HEART 02/21/24 cholecalciferol (vitamin D3) 50 mcg (2,000 unit) capsule 50 mcg PO DAILY VITAMIN 02/21/24 clopidogrel 75 mg tablet 75 mg PO DAILY BLOOD THINNER 02/21/24 magnesium oxide 400 mg PO DAILY SUPPLEMENT 02/21/24 pantoprazole 40 mg tablet,delayed release 40 mg PO BID STOMACH ACID 02/21/24 potassium citrate 10 mEq (1,080 mg) tablet,extended release 10 meq PO BID SUPPLEMENT 02/21/24 pregabalin 150 mg capsule (Lyrica) 150 mg PO BID NERVE PAIN 02/21/24 spironolactone 25 mg tablet (Aldactone) 12.5 mg PO DAILY HIGH BLOOD PRESSURE 02/21/24 torsemide 20 mg tablet 10 mg PO QODAY FLUID RETENTION 02/21/24 apixaban 5 mg tablet (Eliquis) 5 mg PO BID #1 TAB 02/25/24 aspirin 81 mg tablet,delayed release (Adult Aspirin Regimen) 81 mg PO DAILY HEART HEALTH #1 TAB 02/25/24 rosuvastatin 5 mg tablet 10 mg (2 x 5 mg) PO DAILY CHOLESTEROL #1 TAB 02/25/24 sennosides 8.6 mg-docusate sodium 50 mg tablet (Stool Softener-Stimulant Laxative) 2 tab PO BID PRN PRN Constipation #0 tabs 02/25/24 Hospital Course Procedures 2-D Echocardiogram, EKG, Transesophageal Echo and - (Chest x-ray/CTA head and neck/MRI brain) Summary of Care Provided Minutes Spent on Discharge: 45 Hospital Course: Mr. Pineda is a 73-year-old white male who presented to the emergency department at [facility] on 02/21/2024 with some altered mental status and left eye visual changes. Patient reported he had a Watchman device placement about 2 weeks ago at [facility] and his Coumadin was stopped at the time of discharge postprocedure. He had been taking Plavix and aspirin daily. On the morning he presented to emergency department, he reported that he woke up and felt a bit off and had visual changes where he could not see the top part of his left visual field. He indicated it was blurry but not to the point where he could not see. He had been having a headache as well. He talked to his sister and because he was acting a bit confused they called an ambulance and he presented to the emergency department. Vital signs on presentation showed temperature of 97, heart rate 100, blood pressure initially was 140/116 with a repeat of 139/94, respiratory rate is 12 and oxygen saturations were 96% on room air. His CBC was unremarkable. INR was 1.2. His chemistry panel showed normal electrolytes and a BUN of 19 and creatinine of 1.42 which appears consistent with his baseline. Liver functions were unremarkable other than mildly elevated bilirubin at 1.4 which seems to be chronic. Hemoglobin A1c was obtained and found to be 5.9. Lipid panel was obtained and he was found to have a total cholesterol 123/LDL 78/HDL 27/triglycerides 89. His UA was not consistent with infection. Chest x-ray was unremarkable other than some mild atelectasis at the bases bilaterally. A CTA of his head and neck was performed and demonstrated moderate acute left posterior cerebellar artery territory infarct with mild acute right posterior cerebellar territory infarct and no acute intracranial hemorrhage. There was thrombus and occlusion in the mid left and distal right posterior cerebral arteries with no evidence of significant stenosis in the carotid or vertebral arteries. The case was discussed with [facility] neurology and they recommended ongoing medical therapy. Echocardiogram was done on 02/21/2024 and showed an EF of 50% with a mildly hypokinetic mid anterior septal region and ICD/pacer wire was identified in the right ventricle. Bubble study was unremarkable. MRI was performed on 02/24/2024 and showed a moderate size infarct in the inferior and medial aspect of the left temporal lobe and mild acute infarction in the posterior medial aspect of the right temporal lobe and parasagittal region of the occipital lobe corresponding to thrombotic occlusions noted on the CTA with no signs of hemorrhagic conversion. Given his recent Watchman procedure, I discussed the case with his platform material handling supervisor over in [place] at [facility] and they recommended RADHA with full anticoagulation via Eliquis until he follows up with him as an outpatient. RADHA was done on 02/25/2024 and showed normal LV with an EF of 55%, moderate left atrial and lower management and no thrombus detected in the left atrial appendage with occlusive device in place and moderate spontaneous contrast in the left atrium with no obvious thrombus or source of embolus noted. He was seen by neurology and they did recommend cardiology evaluation with initiation of full anticoagulation if they recommended. We discussed the timing of this and based on the size of the stroke and his need for ongoing Plavix it was felt that he would be safe to start full anticoagulation with Eliquis 5 mg p.o. twice daily on 02/28/2024. Until that point in time he will remain on aspirin and Plavix. On the fifth Eliquis should be initiated and his aspirin should be held until he comes off his Eliquis. With regards to his stroke, I have referred him to [facility] stroke center as we have no immediate follow-up available here and they should be calling him with an appointment after discharge. I have asked him to follow-up with Dr. Membreno as previously directed after Watchman device placement. After this follow-up he would like to follow-up with Dr. Erickson here in [place] so he can be taking care of medically. He also does reportedly have a left lower lung nodule that was located during workup for his Watchman. He is plugged in at [facility] for further care for this and biopsy in the near future and I recommended he keep these appointments. He was seen by rehab services during his hospital stay and they did recommend ongoing therapy services at discharge. He was accepted for acute care rehab here at [place] and was discharged in stable condition on 02/25/2024. He will need follow-up with his primary care physician for about 1 week after discharge from rehab facility. I did verbally discuss the above plans with the patient and his sister who is at the bedside and helps with his care. 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 Membreno [facility] Left-sided pulmonary nodule CAD Hypertension Hyperlipidemia History of stroke GERD History of COPD Neuropathy CKD stage IIIa Obesity History of tobacco abuse Physical Exam Const alert, oriented x3, no apparent distress, no limitations, healthy appearing and well nourished; Negative for average body habitus Constitutional Narrative: Obese, older, white male, sitting up in a chair at the bedside, appears comfortable, nontoxic, sister at the bedside, patient does have some short-term memory loss however is alert and oriented x 3 and can interact appropriately, sister at bedside General Appearance: cooperative, comfortable, well kempt and well developed Orientation / Consciousness: awake, oriented to person, oriented to place and oriented to time Exam Limitations: no limitations Nutritional Appearance: obese HEENT normocephalic, head/scalp atraumatic, moist oral mucous membranes and oropharynx normal HEENT Narrative: Mild hearing loss, Mallampati 2-3, no thrush Eyes PERRL, EOMs intact bilaterally and conjunctivae normal Eyes Narrative: No scleral icterus Neck no lymphadenopathy and supple Neck Narrative: Trachea midline, no thyroid enlargement Resp normal respiratory effort, no retractions, no use of accessory muscles and clear to auscultation bilaterally Auscultation: Negative for rales, rhonchi or wheezes Cardio regular rate, regular rhythm, S1 normal heart sound, S2 normal heart sound, no murmurs, no rub, no gallops and no clicks GI normal to inspection, nondistended, normoactive bowel sounds, soft to palpation and non-tender Extremity no clubbing, cyanosis or edema Extremity Narrative: Radial and pedal pulses are 2+ Skin no rashes or lesions noted, no wounds, skin turgor normal, no jaundice, no petechiae and no mottling Neuro oriented x3, CN's II-XII intact bilaterally, moves all extremities and no focal motor deficits Neuro Narrative: Visual changes with loss of top visual nye left greater than right, NIH remains at 1 for partial hemianopsia Speech: speech normal Psych affect normal Psych Narrative: Very pleasant, interacts appropriately Weight / BMI Weight Weight: 108.6 kg Body Mass Index (BMI) 32.4 ABG / Lab / Microbiology Data 02/25/24 05:11 02/25/24 05:11 Laboratory: Laboratory Results - last 24 hr 02/25/24 05:11: WBC 6.1, RBC 5.31, Hgb 15.4, Hct 47.4, MCV 89.3, MCH 29.0, MCHC 32.5, RDW Std Deviation 51.3 H, RDW Coeff of Elias 15.8 H, Plt Count 258, MPV 10.6, Immature Gran % (Auto) 0.200, Neut % (Auto) 57.4, Lymph % (Auto) 25.1, M gissell % (Auto) 12.2 H, Eos % (Auto) 3.8, Baso % (Auto) 1.3 H, Absolute Neuts (auto) 3.5, Absolute Lymphs (auto) 1.52, Nucleated RBC % 0, Sodium 139, Potassium 4.2, Chloride 106, Carbon Dioxide 28.0, Anion Gap 5, BUN 16, C reatinine 1.31 H, Estim Creat Clear Calc 65.84, Est GFR (MDRD) Af Amer 69, Est GFR (MDRD) Non-Af 57 L, BUN/Creatinine Ratio 12.2, Glucose 102, Calcium 9.0, Magnesium 2.2 Radiography Diagnostic Testing: Radiology Impression Brain MRI 02/24/24 10:45 IMPRESSION: 1. Moderate acute infarction in the inferior and medial aspect of the left temporal lobe and mild acute infarction in the posterior medial aspect of the right temporal lobe and in the parasagittal region of the occipital lobe corresponds to thrombotic occlusions of the bilateral posterior cerebral arteries seen on the recent CTA of the head. 2. There is no demonstrated hemorrhagic conversion or significant interval change from the prior exam. Electronically Signed: Alfredo Espino MD at 15:37 EDT , Transesophageal Echocardiogram 02/25/24 12:00 Interpretation Summary Normal LV size. Left ventricular systolic function is normal. The left ventricular ejection fraction is 55 %. The left atrium is moderately enlarged. No thrombus is detected in the left atrial appendage. Left atrial appendage has an occluder device noted There is moderate sponatenous contrast in the left atrium. No obvious thrombus or source of embolus noted. Ordering Physician: Mariana Nj Referring Physician: Mitch Peña Performed By: Bridgette Schmid RDCS, RVT D/C Instructions Discharge Diet: Low fat / Low cholesterol Discharge Activity: Return to Normal Activity Meaningful Use Info Meaningful Use Meaningful Use Diagnoses (Choose all that apply): Ischemic CVA CVA Therapy Assessed for PT,OT and/or ST?: Yes Ischemic Stroke Antithrombotic order at d/c?: Yes Dx of Atrial fib/flutter?: Yes Anticoagulant at discharge?: Yes Statin Dosing Therapy Reference: STATIN DOSE THERAPY REFERENCE: * Patients > 75 years receive moderate or high dose statin therapy. * Patients 75 years or YOUNGER should receive HIGH intensity statin dose unless contraindicated. You will be required to document reason for non-treatment if statin daily dose does not meet guidelines. HIGH DOSE STATIN THERAPY DAILY Atorvastatin > than or = to 40 mg Rosuvastatin > than or = to 20 mg Amlodipine + Atorvastatin > than or = to 2.5/40 mg Ezetimibe + Simvastatin 10/80 mg Simvastatin 80mg Statins at discharge?: Yes If patient is 75 or younger, pt will be discharged on HIGH intensity statin.: Y es Primary Dx Acute Ischemic CVA?: Yes IV thrombolytic ordered during stay?: No Reason IV thrombolytic not ordered: Treatment not Indicated Discharge Plan Admission Admit Date/Time: 02/21/24 14:32 Primary Reason for Your Visit: Vision changes/confusion Attending Provider: Mariana Nj Primary Care Provider: Mitch Peña Consulting Providers: Homero Baker; Eugenio Mendez; Celso Mclean; Monique Chu; Roma Avila; Mayr Arceo; Nicky Smallwood; Aaron Lo; Millie Slade; Riaz Gaitan; Sheldon Kumari; Shailesh Vega; Patricia Muniz; Louis Levy; Humaira Malhotra; Nichole Snell; Isaiah Tolliver; Paresh Car; Mandeep Ott; Mic Vargas; Rox Nj; Jasen Luna Instructions Additional Instructions / Restrictions: 1. Please follow-up with Dr. Membreno at [facility] for your Watchman as previously instructed and plan is to take Eliquis and Plavix until he stops the Eliquis and puts you back on ASA and Plavix. 2. Eliquis to start on 02/27 and ASA to stop. Continue Plavix 3. We increased your cholesterol medication as your cholesterol is not at goal for stroke which is less than 70. Rosuvastatin was changed from 5 mg daily to 10 mg daily 4. We did refer you to [facility] stroke clinic for follow-up. There is no close follow-up here with neurology available within the next 12 months. You should receive a call from them to set up an appointment. Discharge Orders/Prescriptions Prescriptions: New sennosides-docusate sodium [Stool Softener-Stimulant Laxat] 8.6-50 mg Tablet 2 tab PO BID PRN PRN (Reason: Constipation) Qty: 0 0RF Eliquis 5 mg Tablet 5 mg PO BID Qty: 1 0RF Rx Instructions: Start on 02/28/2024 and stop ASA, continue plavix Continued carvedilol 3.125 mg tablet 3.125 mg PO BID Rx Instructions: must administer with a meal/food cholecalciferol (vitamin D3) 50 mcg (2,000 unit) capsule 50 mcg PO DAILY clopidogrel 75 mg tablet 75 mg PO DAILY magnesium oxide 400 mg magnesium capsule 400 mg PO DAILY pantoprazole 40 mg tablet,delayed release (DR/EC) 40 mg PO BID potassium citrate 10 mEq (1,080 mg) tablet extended release 10 meq PO BID pregabalin [Lyrica] 150 mg capsule 150 mg PO BID spironolactone [Aldactone] 25 mg tablet 12.5 mg PO DAILY torsemide 20 mg tablet 10 mg PO QODAY aspirin [Adult Aspirin Regimen] 81 mg tablet,delayed release (DR/EC) 81 mg PO DAILY Qty: 1 0RF Rx Instructions: Stop when apixaban is started on 02/28/2024 Changed rosuvastatin 5 mg tablet 10 mg PO DAILY Qty: 1 0RF Referrals / Follow Up: Mitch Peña MD [Primary Care Provider] - Within 1 Week (After discharge from rehab) Terry Erickson MD [Med Staff - Active Staff] - See Referral Note (Schedule appointment after released by Dr. Membreno at [facility]) NOT,DEFINED [Non-Staff] - Disposition Disposition (needs filled in before D/C Order can be placed): Inpatient Rehab Unit/Facility Charges/Coding Visit Charges Inpatient E&M: 58871 Disch Hosp >30min
--- NOTE | 2024-02-25 14:28 | CASEMGMT ---
Patient is ready for discharge to [facility] Acute Rehab. Patient and his sister both aware and in agreement. Lyndsey SWARTZ
--- NOTE | 2024-02-25 14:42 | CASEMGMT ---
SW met with patient and his sister per their request. Discussed Rehab and possible plans after. ALLISON explained there is a forensic social worker on the Rehab Unit to assist with d/c planning. SW explained options including home with home health, shelter facility, assisted living (AL). SW explained AL is private pay unless patient is on Medicaid. Patient said he does not have the funds to pay for AL. SW explained someone could help him complete a Medicaid jack while on Rehab. SW also provided patient's sister with information on [employer]. SW asked patient his monthly income and he may qualify for some services from [facility]. SW told patient and his sister that SW can make a referral to [facility] as he may qualify for services. They were both agreeable and thankful for the information. Plan: d/c to [facility] Acute Rehab Unit. Lyndsey SWARTZ
--- NOTE | 2024-02-25 15:20 | NURSING ---
Addendum entered by Kimberley See 02/25/24 15:21: IV left in per Luz's request. Original Note: Report called to Luz LLANOS, IR.
[2024-02-25] MEDS: Spironolactone 25 MG Tablet 12.5 MG PO (15:39)
[2024-02-25] MEDS: Pantoprazole Sodium 40 MG Tablet PO (15:39)
[2024-02-25] MEDS: Magnesium Chloride 64 MG Delay Rel.Tablet 128 MG PO (15:39)
[2024-02-25] MEDS: Cholecalciferol (VIT D3) 25 MCG TABLET (1,000 UNITS) 50 MCG PO (15:39)
[2024-02-25] MEDS: Aspirin 81 MG TAB.CHEW PO (15:39)
[2024-02-25] MEDS: Clopidogrel Bisulfate 75 MG Tablet PO (15:39)
[2024-02-25] MEDS: POTASSIUM CITRATE 10 MEQ TABLET.ER PO (15:39)
[2024-02-25] MEDS: Pregabalin 75 MG Capsule 150 MG PO (15:46)
== END 2024-02-25 16:20 | DRG 64 ==
LOC: ED 14:25 → PCU 14:55
PROVIDERS: Internal Medicine; Nurse Practitioner; Admitting Provider Hospitalist; Emergency Provider Emergency Medicine; PCP Family Medicine; Visit Provider Internal Medicine
DX: I63.533 Cerebral infarction due to unspecified occlusion or stenosis of bilateral posterior cerebral arteries (principal); G92.8 Other toxic encephalopathy; J44.9 Chronic obstructive pulmonary disease, unspecified; N18.31 Chronic kidney disease, stage 3a; I48.91 Unspecified atrial fibrillation; I12.9 Hypertensive chronic kidney disease with stage 1 through stage 4 chronic kidney disease, or unspecified chronic kidney disease; H54.7 Unspecified visual loss; I25.10 Atherosclerotic heart disease of native coronary artery without angina pectoris; I25.2 Old myocardial infarction; E66.9 Obesity, unspecified; Z87.891 Personal history of nicotine dependence; Z79.02 Long term (current) use of antithrombotics/antiplatelets; Z79.82 Long term (current) use of aspirin; Z66 Do not resuscitate; Z95.0 Presence of cardiac pacemaker; Z68.32 Body mass index [BMI] 32.0-32.9, adult; Z95.5 Presence of coronary angioplasty implant and graft; R91.1 Solitary pulmonary nodule; R29.701 NIHSS score 1
CPT/HCPCS: 36415; 70496; 70498; 70551; 71045; 80048; 80053; 80061; 81001; 83036; 83735; 84484; 85025; 85610; 93005; 93306; 93312; 93320; 93325; 94762; 97110; 97116; 97162; 97166; 97530; 97535; 97802; 99285; J7030; J7040; Q9957; Q9967; A4216; C8929

== ENCOUNTER 2024-02-25 16:33 | Inpatient (IN) | payer MEDICARE, OTHER, SELFPAY ==
[2024-02-25 17:38] VITALS: BP 117/80; PULSE 73; RESP 17; TEMP 36.4; O2SAT 91; BMI 33.3
[2024-02-25] MEDS: Carvedilol 3.125 MG TABLET PO (17:38)
[2024-02-25 20:00] VITALS: PULSE 62; RESP 16; O2SAT 90; O2SAT 93
[2024-02-25] MEDS: Pregabalin 75 MG Capsule 150 MG PO (20:40)
[2024-02-25] MEDS: Pantoprazole Sodium 40 MG Tablet PO (20:40)
[2024-02-25] MEDS: Atorvastatin Calcium 20 MG Tablet PO (20:40)
[2024-02-25] MEDS: Senna/Docusate Sodium 1 Tablet 2 TABLET PO (20:40)
[2024-02-25] MEDS: POTASSIUM CITRATE 10 MEQ TABLET.ER PO (20:40)
--- NOTE | 2024-02-25 20:53 | PN.NEURO_ITS ---
Objective Data Objective Data Vital Signs: Vital Signs Temp Pulse Resp BP Pulse Ox O2 Del Method 97.5 F L 73 17 117/80 91 Room Air 02/25/24 17:38 02/25/24 17:38 02/25/24 17:38 02/25/24 17:38 02/25/24 17:38 02/25/24 17:38 Oxygen Delivery Method Room Air Weight: 108.2 kg Body Mass Index (BMI) 33.3 Intake & Output: Intake and Output for Last 24 Hours 02/23/24 02/24/24 02/25/24 23:59 23:59 23:59 Intake Total 100 / 100 Balance 100 / 100 Physical Exam Neuro Neuro Narrative: Neurological examination: General: The patient appears nutritionally appropriate, well-groomed, and appears comfortable in no acute distress. Mental Status: The patient?s mental status was normal including orientation. Language was intact. Cranial nerves: Visual nye suggestive of partial RVF, but states he can see fingers, and extra-ocular motion was intact. Face motion symmetric. Tongue was midline with normal movement. There was no dysarthria. Motor: Normal strength and tone in all four extremities. No pronator drift. Sensation: Intact light touch bilaterally. Coordination: Bilateral finger to nose was normal. There was no dysmetria. Gait: deferred Subject: Neurology Subjective BANDA 4/10 today. Feels he cant see the top half of visual field in both eyes. Assessment and Plan: Stroke Assessment/Plan Assessment and Plan: Stroke Assessment/Plan YESY LAWLER is a 73 year old RH M exsmoker with a history of Afib s/p Watchmans (~2 weeks ago at [facility]), HTN, and COPD who presents for evaluation of headache, confusion, and vision changes. The patients symptoms started 02/20/24 when he felt off, confused with severe BANDA. He also noted difficulty seeing (top up). He presented to ER on 02/21/24. 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 CTA head shows bilateral NEW CAR MAKE READY WORKER occlusion. He was admitted. Of note, he stopped his coumadin last week (per cardiology) and is on home Asa/plavix. MRI brain DWI shows bilateral NEW CAR MAKE READY WORKER infarcts (moderate size). RADHA EF 55% LA moderate enlargement, SEC LA, KADEN occluder device. Harbor Master recommend eliquis/plavix. Currently he is on Asa/plavix, lovenox SQ, and lipitor 80. Neurological examination shows suspected partial VF, NIHSS-1. 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 Plan per cardiology is eliquis/plavix. 2) Continue vascular risk factor modification. On lipitor. 3) Follow up in stroke neurology clinic as outpatient. 4) VF testing as outpatient. No driving. 5) PT consult- acute rehab, Messaged primary team via backline.
[2024-02-26 00:27] VITALS: BMI 33.3
[2024-02-26 05:51] LABS: Hematocrit 47.6 % (40-54); Hemoglobin 15.5 g/dL (13.0-16.5); Mean Corp Hgb Conc 32.6 g/dL (32-36); Mean Corpuscular Hgb 29.2 pg (27.0-32.0); Mean Corpuscular Volume 89.8 fL (80-94); Mean Platelet Vol. 10.5 fl (6.2-12.0); Platelet Count 280 K/mm3 (150-450); RBC Distribution Width CV 15.7 % (11.6-14.6); RBC Distribution Width SD 51.6 fl (35.1-43.9); White Blood Count 6.2 K/mm3 (4.4-11.0)
[2024-02-26 06:00] VITALS: BP 96/64; PULSE 61; RESP 17; TEMP 36.8; O2SAT 95; BMI 33.4
[2024-02-26 07:01] LABS: ALB/GLOB Ratio 0.8 RATIO (0.9-2.4); AST(SGOT) 24 U/L (15-37); Alanine Aminotransfer ALT/SGPT 37 U/L (16-61); Albumin, Serum 2.7 g/dL (3.2-5.0); Alkaline Phosphatase 83 U/L (45-117); Anion Gap 5 (5-15); BUN 15 mg/dL (7-18); BUN/Creat Ratio 11.2 RATIO (10-20); Calcium,Total 8.7 mg/dL (8.5-10.1); Chloride 108 mmol/L (98-107); Creatinine, Serum 1.34 mg/dL (0.70-1.30); EST Glomerular Filtration Rate 56 mL/min (>60); Est Glom Filt Rate - Afr Amer 67 mL/min (>60); Estimated Creatinine Clearance 63.26 ml/min; Globulin 3.5 g/dL (2.2-4.2); Glucose 94 mg/dL (74-106); Magnesium 1.9 mg/dL (1.6-2.6); Phosphorus 3.2 mg/dL (2.5-4.9); Potassium 4.2 mmol/L (3.5-5.1); Protein, Total 6.2 g/dL (6.4-8.2); Sodium Level 138 mmol/L (136-145)
[2024-02-26 07:17] VITALS: O2SAT 95
[2024-02-26] MEDS: Furosemide 20 MG Tablet PO (08:48)
[2024-02-26] MEDS: Aspirin E.C. 81 MG Tablet PO (08:48)
[2024-02-26] MEDS: Clopidogrel Bisulfate 75 MG Tablet PO (08:48)
[2024-02-26] MEDS: Cholecalciferol (VIT D3) 25 MCG TABLET (1,000 UNITS) 50 MCG PO (08:48)
[2024-02-26] MEDS: POTASSIUM CITRATE 10 MEQ TABLET.ER PO ×2 (08:48→19:56)
[2024-02-26] MEDS: Magnesium Chloride 64 MG Delay Rel.Tablet 128 MG PO (08:48)
[2024-02-26] MEDS: Senna/Docusate Sodium 1 Tablet 2 TABLET PO (08:48)
[2024-02-26] MEDS: Pantoprazole Sodium 40 MG Tablet PO ×2 (08:48→19:56)
[2024-02-26] MEDS: Spironolactone 25 MG Tablet 12.5 MG PO (08:50)
[2024-02-26] MEDS: Carvedilol 3.125 MG TABLET PO ×2 (08:51→17:22)
[2024-02-26] MEDS: Ensure Plus High Protein 120 ML LIQUID PO (08:52)
[2024-02-26] MEDS: Pregabalin 75 MG Capsule 150 MG PO (08:55)
--- NOTE | 2024-02-26 13:10 | HP.PCM_ITS ---
HPI - General General Date of Admission: 02/25/24 HPI Narrative YESY LAWLER, is a 73 YO M with a PMH of HTN, HLD, ankylosing spondylitis, COPD, coronary artery disease, atrial fibrillation, depression, tobacco dependence in remission, history of pacemaker implantation, history of a right lower lobe 2.6 cm x 1.6 cm spiculated nodule on a CT scan done February 07, 2024 and a recent Watchman procedure at the [facility]. He had stopped Coumadin and was transitioned to Plavix and ASA on the advice of cardiology approximately 1 week prior to [facility] c/o BANDA, loss of vision in the BL upper visual nye and confusion. The sx had begun on 02/20/24. CT of the head showed a moderate acute left posterior cerebral artery territory infarct and a mild acute right posterior cerebral artery territory infarct. CTA showed thrombus and occlusion of the mid left and distal right posterior cerebral arteries with no evidence of significant stenosis of the carotid or vertebral arteries of the neck. He was admitted to the hospitalist service for medical management. A transthoracic echocardiogram was done on 02/21/2024 and showed a left ventricular ejection fraction of 50% with mid anteroseptal hypokinesis. Both atria were mildly enlarged. The bubble contrast study was negative for right to left interatrial shunt. Consult was obtained with neurology on 02/24/24 and MRI and cardiology consult were recommended. MRI was done on 02/24/2024 and showed moderate acute infarction in the inferior and medial aspects of the left temporal lobe, mild acute infarction in the posterior medial aspect of the right temporal lobe and acute infarction in the parasagittal region of the occipital lobe. He underwent a RADHA on 02/25/24 and this showed a left ventricular systolic ejection fraction of 55%. The left atrium was moderately enlarged. There was no thrombus detected in the left atrial appendage and the left atrial appendage had an occluder device noted. There was moderate spontaneous contrast in the left atrium and no obvious thrombus or source of embolus noted. While in the hospital he was seen the PT/OT/ST and acute inpt rehab was recommended at [facility]. He was transferred to the [facility] on 02/25/24 for 3 hours of therapy daily to restore function/independence at or near his level prior to the strokes. Prior to the admission for stroke Kwasi was living independently in an apt and was independent with all ADL's. He was driving. The CT of the chest also showed a hyperattenuating R adrenal nodule. [facility] Medical History (Updated 02/27/24 @ 10:[address] Nallely Spears, DO) Chronic renal failure, stage 3a Obesity (BMI 30.0-34.9) Glucose intolerance (impaired glucose tolerance) Coronary artery disease Neuropathy Former smoker, stopped smoking many years ago Ankylosing spondylitis Afib HTN (hypertension) Myocardial infarct COPD (chronic obstructive pulmonary disease) Home Medications ?Medication ?Instructions ?Recorded ?Last Taken ?Type carvedilol 3.125 mg tablet 3.125 mg PO BID HEART 02/21/24 Unknown History cholecalciferol (vitamin D3) 50 50 mcg PO DAILY VITAMIN 02/21/24 Unknown History mcg (2,000 unit) capsule clopidogrel 75 mg tablet 75 mg PO DAILY BLOOD THINNER 02/21/24 Unknown History magnesium oxide 400 mg PO DAILY SUPPLEMENT 02/21/24 Unknown History pantoprazole 40 mg tablet,delayed 40 mg PO BID STOMACH ACID 02/21/24 Unknown History release potassium citrate 10 mEq (1,080 10 meq PO BID SUPPLEMENT 02/21/24 Unknown History mg) tablet,extended release pregabalin 150 mg capsule (Lyrica) 150 mg PO BID NERVE PAIN 02/21/24 Unknown History spironolactone 25 mg tablet 12.5 mg PO DAILY HIGH BLOOD 02/21/24 Unknown History (Aldactone) PRESSURE torsemide 20 mg tablet 10 mg PO QODAY FLUID RETENTION 02/21/24 02/24/24 History apixaban 5 mg tablet (Eliquis) 5 mg PO BID Blood thinner #1 TAB 02/25/24 Unknown Rx aspirin 81 mg tablet,delayed 81 mg PO DAILY HEART HEALTH #1 TAB 02/25/24 Unknown Rx release (Adult Aspirin Regimen) rosuvastatin 5 mg tablet 10 mg (2 x 5 mg) PO DAILY 02/25/24 Unknown Rx CHOLESTEROL #1 TAB sennosides 8.6 mg-docusate sodium 2 tab PO BID Constipation 02/25/24 Unknown History 50 mg tablet (Stool Softener-Stimulant Laxative) Allergy/AdvReac Type Severity Reaction Status Date / Time No Known Allergies Allergy Verified 02/21/24 09:52 Family History (Updated 02/27/24 @ 09:[address] Nallely Spears DO) Father Ankylosing spondylitis Other Lung cancer Surgical History (Updated 02/27/24 @ 10:[address] Nallely Spears DO) Pacemaker Presence of Watchman left atrial appendage closure device Social History (Updated 02/27/24 @ 09:[address] Nallely Spears DO) household members: none housing: apartment number of children: 0 Smoking Status: Former smoker ROS Review of Systems ROS Unobtainable: other Details: some limitation with ROS secondary to cognitive dysfunction due to multiple CVA's Constitutional Constitutional: Reports change in weight, fatigue and weight gain; Denies anorexia, chills, fever(s), night sweats or weakness Eyes Eyes: Reports blurry vision and change in vision bilateral (total loss of vision in the upper visual nye (nasal and temporal)); Denies eye pain or loss of vision ENT HEENT: Reports headache(s) and other Details: has a broken tooth in the mandible and a few missing teeth ; Denies abnormal hearing, dysphagia, hearing loss, nasal congestion or sore throat Cardiovascular Cardiovascular: Reports dyspnea on exertion and edema; Denies chest pain, lightheadedness, orthopnea, palpitations, paroxysmal nocturnal dyspnea or syncope Respiratory/Chest Respiratory/Chest: Reports shortness of breath with exertion; Denies cough, dyspnea, shortness of breath at rest or wheezing Gastrointestinal Gastrointestinal: Reports constipation; Denies abdominal pain, diarrhea, dyspepsia, hematemesis, hematochezia, nausea or vomiting Genitourinary Genitourinary: Reports nocturia, urinary hesitancy and other Details: He does not feel as though he completely empties his bladder and he has a slow stream with dribbling after urination. ; Denies dysuria, hematuria, urinary frequency, urinary incontinence or urinary urgency Musculoskeletal Musculoskeletal: Reports back pain, extremity pain, stiffness and other Details: has pain in both feet.........this has not significantly improved with Lyrica ; Denies joint pain, joint swelling or neck pain Integumentary Integumentary: Denies jaundice, pruritus, rash or wounds Neurologic Neurologic: Reports confusion, weakness and other Details: burning pain in his feet ; Denies disequilibrium, dizziness, focal weakness, headache(s), paresthesias, seizures or tremor(s) Psychiatric Psychiatric: Reports depression; Denies anxiety, homicidal ideation or suicidal ideation Endocrine Endocrinology: Denies change in body appearance, polydipsia or polyuria Hematologic/Lymphatic Hematologic/Lymphatic: Denies easy bleeding, easy bruising or lymphadenopathy Allergic/Immunologic Allergic/Immunologic: Denies rhinitis, eczemia or asthma Vital Signs Vital Signs Vital Signs: 02/25/24 17:38 02/25/24 20:00 02/25/24 20:00 Temperature 97.5 F L Temperature Source Temporal Pulse Rate 73 62 Pulse Strength Respiratory Rate 17 16 Respiratory Effort Normal Non-Labored Respiratory Depth Normal Respiratory Pattern Normal Blood Pressure 117/80 Blood Pressure Mean 92 Blood Pressure Source Monitor Blood Pressure Position Semi-Fowlers Blood Pressure Location Right Arm Pulse Ox 91 93 90 Oxygen Delivery Method Room Air Room Air Room Air Oxygen Flow Rate (L/min) 02/26/24 06:00 02/26/24 07:17 02/26/24 09:28 Temperature 98.3 F Temperature Source Oral Pulse Rate 61 Pulse Strength Normal (2+) Respiratory Rate 17 Respiratory Effort Respiratory Depth Respiratory Pattern Blood Pressure 96/64 Blood Pressure Mean 74 Blood Pressure Source Monitor Blood Pressure Position Semi-Fowlers Blood Pressure Location Left Arm Pulse Ox 95 95 Oxygen Delivery Method CPAP Room Air Oxygen Flow Rate (L/min) 2 Weight Weight: 239 lb 10.279 oz Body Mass Index (BMI) 33.4 Indicators for Scoring Admitted with or Primary Diagnosis of CVA/Stroke: Yes Hx of CVA/Stroke: Yes Modified [place] Score MRS Score at time of Evaluation: 3-Moderate disability NIHSS NIHSS 1a. Level of Consciousness: Alert; keenly responsive 1b. LOC Questions: Answers BOTH questions correctly. 1c. LOC Commands: Performs both tasks correctly. 2. Best Gaze: Normal 3. Visual: Bilateral hemianopia (blind, including cortical blindness) (no vision in the superior visual nye of both eyes nasal and temporal. ) 4. Facial Palsy: Normal symmetrical movements 5a. Left Arm: No drift; arm holds 90 (or 45) degrees for full 10 seconds 5b. Right Arm: No drift; arm holds 90 (or 45) degrees for full 10 seconds 6a. Left Leg: No drift; leg holds 30-degree position for full 5 seconds 6b. Right Leg: No drift; leg holds 30-degree position for full 5 seconds 7. Limb Ataxia: Absent 8. Sensory: Normal; no sensory loss 9. Best Language: [id number] aphasia; 10. Dysarthria: Normal 11. Extinction and Inattention: No abnormality Total: 4 Stroke Questions Stroke Team Activated: No Physical Exam Const alert, oriented x3 and no apparent distress Constitutional Narrative: Flat affect, pleasant, appropriate, calm. Having some anxiety about the loss of vision in both eyes in the superior medial and temporal nye. He is not wearing his glasses because he says they distorted the vision he still has. General Appearance: cooperative Nutritional Appearance: overweight HEENT normocephalic and head/scalp atraumatic HEENT Narrative: some missing teeth. the rest of the teeth look to be in good repair. No halitosis. NO thrush. Mouth: dry mucous membranes Eyes PERRL, EOMs intact bilaterally, conjunctivae normal and no scleral icterus Eyes Narrative: No DC from the eyes and no mattering of the eyelashes. Neck no carotid bruits Neck Narrative: Good carotid pulse volume. Resp normal respiratory effort and clear to auscultation bilaterally Resp Narrative: Has been told in the past that he probably has COPD from years of smoking but, denies ever having PFT's. He has been on inhalers in the past. He has a CPAP machine since 2020 and he tells me that he is compliant with using it every night. there is an increased AP diameter of the chest. Effort and Inspection: Negative for tachypneic or respiratory distress Auscultation: diminished lung sounds Cardio regular rate, regular rhythm, S1 normal heart sound, S2 normal heart sound, no murmurs, no rub and no gallops Cardio Narrative: No ectopy GI GI Narrative: Mildly distended and tympanic. NT and normal BS's are present. Extremity no calf tenderness Extremity Narrative: He is wearing compression stockings and he wears these regularly at home to help control ankle edema. General Extremity: clubbing; Negative for cyanosis or edema Skin General Skin Exam: no breakdown Rashes: rashes noted he has seborrheic dermatitis involving the left nasolabial fold Neuro CN's II-XII intact bilaterally Neuro Narrative: He has generalized weakness in the LE's. No sensory loss, no extinction and no ataxia. NO side neglect per PT but, he feels as though he is veering to the right when he is walking. He has complete loss of vision in the superior visual nye. No tremor. Has trouble with word finding and has poor short term memory. Coordination / Balance: [id number] test normal and [id number] test normal Psych cooperative, denies homicidal ideation and denies suicidal ideation Psych Narrative: Has never been on an antidepressant but, he tells me that he has been depressed in the past. Has never had a suicide attempt. He had been travelling around the country in a van and enjoying life. Since he has been back in [place] he has become depressed. He does not feel rested when he gets up in the AM and he has been napping in the afternoon. He is not motivated to get things done or exercise. He has gained some weight due to inactivity. He has been very emotional recently. He seems anxious about his health and who will follow up with. He does not have a PCP in [place]. He was a long time smoker (37 years/3 PPD) but, quit in 2005. Now he has a recently diagnosed lung mass and he is worried he may have CA. He is worried about returning to his apt and being able to be alone and independent again. He is agreeable to an antidepressant. Results Lab / Micro Data 02/26/24 05:03 02/26/24 05:03 Labs: Laboratory Results - last 24 hr 02/26/24 05:03: WBC 6.2, RBC 5.30, Hgb 15.5, Hct 47.6, MCV 89.8, MCH 29.2, MCHC 32.6, RDW Std Deviation 51.6 H, RDW Coeff of Elias 15.7 H, Plt Count 280, MPV 10.5, Sodium 138, Potassium 4.2, Chloride 108 H, Carbon Dioxide 25.0, Anion Gap 5, BUN 15, Creatinine 1.34 H, Estim Creat Clear Calc 63.26, Est GFR (MDRD) Af Amer 67, Est GFR (MDRD) Non-Af 56 L, BUN/Creatinine Ratio 11.2, Glucose 94, Calcium 8.7, Phosphorus 3.2, Magnesium 1.9, Total Bilirubin 0.90, AST 24, ALT 37, Alkaline Phosphatase 83, Total Protein 6.2 L, Albumin 2.7 L, Globulin 3.5, A lbumin/Globulin Ratio 0.8 L Assessment & Plan Assessment/Plan (1) Debility: (2) CVA (cerebral vascular accident): QUALIFIERS: CVA mechanism: thrombosis Laterality of affected vessel: bilateral Precerebral and cerebral artery: posterior cerebral artery Q ualified Code(s): I63.333 - Cerebral infarction due to thrombosis of bilateral posterior cerebral arteries (3) Cognitive dysfunction: (4) Bilateral hemianopia: (5) Seborrheic dermatitis: (6) Lung mass: (7) Adrenal nodule: (8) Pacemaker: (9) Presence of Watchman left atrial appendage closure device: (10) Afib: QUALIFIERS: Atrial fibrillation type: paroxysmal Qualified Code(s): I48.0 - Paroxysmal atrial fibrillation (11) Depression: QUALIFIERS: Depression Type: unspecified Qualified Code(s): F32.A - Depression, unspecified (12) Dyslipidemia: (13) Chronic renal failure, stage 3a: (14) HTN (hypertension): QUALIFIERS: Hypertension type: primary hypertension Qualified Code(s): I10 - Essential (primary) hypertension (15) COPD (chronic obstructive pulmonary disease): QUALIFIERS: COPD type: unspecified COPD Qualified Code(s): J44.9 - Chronic obstructive pulmonary disease, unspecified (16) Glucose intolerance (impaired glucose tolerance): PLAN: Plan PLAN PT for gait stability OT for ADL's ST for evaluation Analgesics - Start Tramadol for pain in the feet not adequately relieved with Lyrica Bowel protocol Fall precautions Assess for Anxiety/Depression - starting Zoloft for anx/depression GI prophylaxis -pantoprazole DVT prophylaxis with LUCAS quintana and Eliquis (to start on 02/28/24) Follow up with PCP, cardiology, pulmonary medicine and neurology following DC from Rehab AM lab including CMP, CBC, Mag and Phos - all personally reviewed. Obtain x-rays of the lumbosacral spine for reported history of chronic back pain secondary to ankylosing spondylitis Check a CRP and ESR Nizoral cream to the left nasolabial fold for seborrheic dermatitis Obtain the results of the most recent CT chest from [facility] Wants to have medical care in [place] because it is easier for him to arrange transportation Very anxious about what will be plans for DC, if he can still live independently, W/U for spiculated pulmonary mass. Charges/Coding Visit Charges Inpatient E&M: 31103 Init Hosp L3
--- NOTE | 2024-02-26 13:49 | RAD_ITS ---
INDICATION: back pain/ankylosing spondylitis hx EXAMINATION/TECHNIQUE: X-RAY - XR Spine Lumbar Min 4 Views COMPARISON: No relevant prior comparison study available FINDINGS: VERTEBRAE: Preserved vertebral body height. No fracture. Minimal anterolisthesis of L5 over S1. Preservation of the normal lumbar lordosis. Mild dextroscoliosis. DISCS: The disc spaces are within normal limits. Endplate spondylosis of the lower lumbar spine. Mild facet arthropathy at the level of L5-S1. INCLUDED ABDOMEN: Atherosclerotic ossifications of the abdominal aorta. RAD/L/S Spine Min 4 Views IMPRESSION: Mild degenerative changes. Electronically Signed: Joe Noble MD at 14:13 EDT ,
[2024-02-26] MEDS: traMADol 50 MG Tablet PO (14:34)
[2024-02-26 14:35] LABS: Erythrocyte Sedimentation Rate 14 mm/hr (0-20)
[2024-02-26 15:05] VITALS: BMI 33.4
[2024-02-26 17:41] VITALS: BP 112/76; PULSE 85; RESP 17; TEMP 36.6; O2SAT 95
[2024-02-26 19:50] VITALS: PULSE 85; RESP 17; O2SAT 95; BMI 33.4
[2024-02-26] MEDS: Atorvastatin Calcium 20 MG Tablet PO (19:57)
[2024-02-26] MEDS: Ketoconazole Cream 1 APPLIC TOPICAL (19:57)
[2024-02-26] MEDS: Pregabalin 50 MG Capsule 100 MG PO (20:13)
[2024-02-27 06:00] VITALS: BP 100/67; PULSE 74; RESP 16; TEMP 36.2; O2SAT 92
[2024-02-27] MEDS: Ketoconazole Cream 1 APPLIC TOPICAL ×2 (06:37→20:33)
[2024-02-27] MEDS: Cholecalciferol (VIT D3) 25 MCG TABLET (1,000 UNITS) 50 MCG PO (08:29)
[2024-02-27] MEDS: traMADol 50 MG Tablet PO ×2 (08:29→20:45)
[2024-02-27] MEDS: Pregabalin 50 MG Capsule 100 MG PO ×2 (08:29→20:45)
[2024-02-27] MEDS: POTASSIUM CITRATE 10 MEQ TABLET.ER PO ×2 (08:29→20:33)
[2024-02-27] MEDS: Sertraline 50 MG Tablet PO (08:29)
[2024-02-27] MEDS: Spironolactone 25 MG Tablet 12.5 MG PO (08:30)
[2024-02-27] MEDS: Magnesium Chloride 64 MG Delay Rel.Tablet 128 MG PO (08:30)
[2024-02-27] MEDS: Pantoprazole Sodium 40 MG Tablet PO ×2 (08:31→20:33)
[2024-02-27] MEDS: Clopidogrel Bisulfate 75 MG Tablet PO (08:31)
[2024-02-27] MEDS: Aspirin E.C. 81 MG Tablet PO (08:32)
--- NOTE | 2024-02-27 09:29 | PCM.RU.PYE ---
Admission Information Primary Diagnosis:: Post stroke debility Status Changes from Prescreening?: No changes Identified Actual Problem List:: Pain, ALteration in Cmfrt, Cognitve Impr/Memory Loss, Depression, Bowel, Constipation, Alteration in Sleep, Mobility Impaired, Self Care Deficit and Alteration-Leisure Activ. Potential Problem List:: DVT, Bleeding, Infection, UTI, Aspiration, Falls, Skin Integrity and Depression Risk of Complications DVT: LUCAS Hose and - (Eliquis) Bleeding: Monitor Lab Values, Nursing to Teach Precautions for anti-coagulation therapy., Wound, if applicable, to be assessed every shift. and Stroke patients assessed for lethargy or change in status. Infection: Clinical Staff to Monitor for S/S of infection: and S/S of infection include fever, redness, warmth, etc. Urinary Tract Infection: Monitor for frequency, burning, discomfort, or incontinence. and Nursing will obtain urine sample for urinalysis and C&S when ordered. Aspiration: Clinical staff will monitor for coughing, drooling, congestion., Speech will evaluate swallowing and dsyphasia. and Nursing will monitor patient swallowing during meals. Falls: Patient will be evaluated for Fall Precautions and Patient will be placed on Fall Precautions as indicated per protocol. Skin Breakdown: Nursing will assess skin daily using assessment tool. and Nursing will place on Skin Breakdown Precautions as indicated. Pain: Clinical staff will assess patient's pain level per protocol., Medications will be given, if needed, and the pain level reassessed. and Other methods: Massage, distraction, decrease stimulus, etc. used PRN. Plan of Care Patient requires physician specializing in physical medicine and rehab oversight to provide close medical supervision of rehab issues including: Pain Management, Sleep Problems, Bowel and Bladder, Medical and co-morbidity Management, DVT prophylaxis, Rehabilitation Leadership and Coordination of treatment team Patient needs Physical Therapy: For a minimum of 1 hour and At least 5 out of 7 days Patient needs Physical Therapy to improve:: Mobility, Strengthening, Transfers, Stretching, ROM, Endurance, Stairs, Gait and Balance Patient needs Occupational Therapy: For a minimum of 1 hour and At least 5 out of 7 days Patient needs Occupational Therapy to improve ADL's incl.: Eating, Grooming, Bathing, Dressing, Toileting, Toilet transfers, Community Reintegration, Higher functioning activities, Household tasks, Adaptive Equipment, Splinting and Other activities as determined Patient requires speech therapy: For a minimum of 1 hour and At least 5 out of 7 days Patient requires speech therapy for: Swallowing, Cognition, Language Skills and Compensatory Strategies Patient requires 24/ Rehabilitation Nursing for: Pain Issues, Identifying and preventing risk factors, Monitoring and reporting current medical conditions, Assisting with ambulation, transfer, and all ADL's, Teaching patients about disease process and medications, Family teaching, Providing safe environment, Bowel and Bladder Issues, Skin integrity and Medication Management Patient needs Personal Computer Specialist/ Case Management for: Discharge Planning, Arranging Home Equipment or Services and Family Interventions Patient needs Dietary and Nutrition Services for: Adequate Nutrition, Nutritional Supplements and Nutritional Education Goals Goals Patient will remain: free from falls Patient will perform eating at: MOD I level of assist. Patient will perform bed mobility at: MOD I level of assist. Patient will complete transfers from bed to chair at: MOD I level of assist. Patient will ambulate: - (500 feet with least restrictive device at mod I on various surfaces) Patient will complete upper body dressing at: MOD I level of assist. Patient will complete lower body dressing at: MOD I level of assist. (With adaptive equipment as needed.) Patient will complete toilet transfer at: MOD I level of assist. Patient will complete toileting at: MOD I level of assist. Patient will perform bathing at: MOD I level of assist. Patient will perform Tub/Shower transfer at: - (Supervision for the first few weeks after returning home) Patient will complete grooming at: MOD I level of assist. Patient will achieve: - (8 steps with 1 handrail at standby assist to allow access to his apartment from the parking lot.) Patient will have pain level of: of 3 or less Patient's skin will: remain intact Patient will receive: adequate nutrition. Discharge Planning Pt Prognosis for Sig. Practical Improv. w/in Reasonable Time: Good Estimated Length of stay (days): 21 Anticipated D/C Destination: Home with Outpt Therapy Was Preadmission Assessment Accurate?: Yes
[2024-02-27 15:53] VITALS: BMI 33.4
[2024-02-27] MEDS: 0.9% Saline Lock 10 ML Syringe IV (16:00)
[2024-02-27 16:49] VITALS: BP 117/72; PULSE 62; RESP 16; TEMP 36.4; O2SAT 93
[2024-02-27] MEDS: Carvedilol 3.125 MG TABLET PO (17:04)
[2024-02-27] MEDS: Atorvastatin Calcium 20 MG Tablet PO (20:33)
[2024-02-28 02:30] VITALS: BMI 33.4
[2024-02-28 06:00] VITALS: BP 86/62; PULSE 87; RESP 16; TEMP 36.6; O2SAT 97
[2024-02-28] MEDS: Ketoconazole Cream 1 APPLIC TOPICAL ×2 (06:27→21:09)
[2024-02-28] MEDS: APIXABAN 5 MG TABLET PO ×2 (08:15→21:09)
[2024-02-28] MEDS: Pantoprazole Sodium 40 MG Tablet PO ×2 (08:15→21:09)
[2024-02-28] MEDS: Cholecalciferol (VIT D3) 25 MCG TABLET (1,000 UNITS) 50 MCG PO (08:16)
[2024-02-28] MEDS: Magnesium Chloride 64 MG Delay Rel.Tablet 128 MG PO (08:16)
[2024-02-28] MEDS: Spironolactone 25 MG Tablet 12.5 MG PO (08:16)
[2024-02-28] MEDS: POTASSIUM CITRATE 10 MEQ TABLET.ER PO ×2 (08:17→21:09)
[2024-02-28] MEDS: Sertraline 50 MG Tablet PO (08:17)
[2024-02-28] MEDS: Furosemide 20 MG Tablet PO (08:17)
[2024-02-28] MEDS: Clopidogrel Bisulfate 75 MG Tablet PO (08:17)
[2024-02-28] MEDS: Pregabalin 50 MG Capsule 100 MG PO ×2 (08:24→21:08)
--- NOTE | 2024-02-28 11:45 | PN_ITS ---
Subjective Subjective Afebrile VSS -blood pressure this a.m. is low at 86/62. Heart rate is normal. The morning dose of Coreg was held today but he did receive a dose yesterday afternoon. It has been placed on hold today. Maintaining appropriate oxygen saturation on RA Oral intake - FOOD good FLUIDS good Discussed with nursing - no problems that need addressed Reviewed the THERAPY notes Medication list reviewed. TSH is normal at 1.1. Cortrosyn stim test has been ordered for tomorrow. His only complaint is that he can not see in the upper visual nye and his memory is very bad. He denies cephalgia, chest pain, palpitations, shortness of breath, cough, nausea/vomiting/abdominal pain, dysuria and calf tenderness. Objective Data Objective Data Vital Signs: Vital Signs Temp Pulse Resp BP Pulse Ox O2 Del Method O2 Flow Rate 97.8 F 87 16 86/62 L 97 CPAP 2 02/28/24 06:00 02/28/24 06:00 02/28/24 06:00 02/28/24 06:00 02/28/24 06:00 02/28/24 06:00 02/28/24 06:00 Oxygen Flow Rate (L/min) 2 Oxygen Delivery Method CPAP Weight: 239 lb 10.279 oz Body Mass Index (BMI) 33.4 Intake & Output: Intake and Output for Last 24 Hours 02/26/24 02/27/24 02/28/24 23:59 23:59 23:59 Intake Total 1630 / 1630 1930 / 1930 470 / 470 Output Total 1650 / 1650 1550 / 1550 600 / 600 Balance -20 / -20 380 / 380 -130 / -130 Lab / Micro Data 02/26/24 05:03 03/03/24 05:01 Labs: Laboratory Results - last 24 hr 02/28/24 09:13: TSH 1.10 Physical Exam Const alert and no apparent distress Constitutional Narrative: Anxious about going home and caring for himself General Appearance: cooperative Resp normal respiratory effort, normal air movement and clear to auscultation bilaterally Auscultation: diminished lung sounds bilateral (Mild) Cardio regular rate, regular rhythm, S1 normal heart sound, S2 normal heart sound, no rub and no gallops Cardio Narrative: No ectopy GI normal to inspection, nondistended, normoactive bowel sounds and non-tender GI Narrative: No guarding with palpation Extremity no calf tenderness Extremity Narrative: Edema in the lower extremities is controlled with compression hose bilaterally. Skin General Skin Exam: no breakdown Rashes: no rashes Wounds: Negative for wounds noted Psych Psych Narrative: Seems more anxious than depressed. Mood & Affect: anxious Assessment & Plan Assessment/Plan (1) Debility: (2) CVA (cerebral vascular accident): QUALIFIERS: CVA mechanism: thrombosis Precerebral and cerebral artery: posterior cerebral artery Laterality of affected vessel: bilateral Q ualified Code(s): I63.333 - Cerebral infarction due to thrombosis of bilateral posterior cerebral arteries (3) Cognitive dysfunction: (4) Bilateral hemianopia: (5) Seborrheic dermatitis: (6) Lung mass: (7) Adrenal nodule: (8) Pacemaker: (9) Presence of Watchman left atrial appendage closure device: (10) Afib: QUALIFIERS: Atrial fibrillation type: paroxysmal Qualified Code(s): I48.0 - Paroxysmal atrial fibrillation (11) Depression: QUALIFIERS: Depression Type: unspecified Qualified Code(s): F32.A - Depression, unspecified PLAN: Plan Continue therapy Charges/Coding Visit Charges Inpatient E&M: 21846 Subs Hosp L1
[2024-02-28 11:55] VITALS: BP 102/67; PULSE 93
--- NOTE | 2024-02-28 13:09 | CASEMGMT ---
Social Work IDT met with patient for Team meeting. Pt's sister is unavailable for a phone call. SW to contact sister to provide updates. Discussed patient's progress in PT/OT/ST/SN. Educated to Medicare approval of 9 days with DC 03/05. Identified some needs at DC. SW provided resources for transportation, home delivered meals, medical alert, [employer], [place], [facility] program for community program; education to delivered/prepackaged medications. Sister to assist with grocery shopping. SW will continue to follow for DC planning support. HARDIK RicksW
--- NOTE | 2024-02-28 15:40 | CASEMGMT ---
Social Work SW phoned sister to follow up on information discussed from Team meeting. SW requested sister bring pt his cell phone at next visit as that will be used in pt's ST sessions. Sister agreed. SW updated to DC goals and IDT recommending home with additional resources in place. Educated to local resources that this worker provided to pt. Sister expressed concern with pt being able to afford resources stating the [facility] referral made on acute can only be used if pt is on Medicaid. SW explored finances with sister and pt may be eligible for ANTONIA. SW offered to make referral to [facility] to assess for resources. Sister agreed and appreciative of assistance. SW will continue to follow for DC planning. Chen Flores, HARDIK MENDENHALLW
[2024-02-28 17:00] VITALS: BMI 33.4
[2024-02-28 18:00] VITALS: BP 104/65; PULSE 88; RESP 17; TEMP 36.4; O2SAT 96
[2024-02-28] MEDS: Atorvastatin Calcium 20 MG Tablet PO (21:08)
[2024-02-28] MEDS: traMADol 50 MG Tablet PO (21:08)
[2024-02-28 21:25] VITALS: BMI 33.4
[2024-02-28 22:00] VITALS: RESP 18
--- NOTE | 2024-02-29 04:54 | NURSING ---
Dayo, from Lab, called to inform RN that Cortisol labwork is unable to be drawn at this time. The machine has been not working and Lab called to inform RN that someone can call later in the morning to see if machine is functioning. This RN called Eugenio, from Pharmacy to make him aware of the situation. Eugenio will put the Cortisol on hold for the moment so it can be accessed when needed.
--- NOTE | 2024-02-29 05:50 | NURSING ---
LAB CAME TO FLOOR TO INFORM RN THAT BESIDES HAVING THE MACHINE DOWN AND UNABLE TO FUNCTION AT THIS TIME, THIS TESTING IS ONLY DONE SATURDAY THRU SATURDAY. PHARMACY WAS CALLED AND SAIRA, FROM PHARMACY IS AWARE AND WILL PUT THE MED IN FOR 6A.M. SATURDAY
[2024-02-29] MEDS: Ketoconazole Cream 1 APPLIC TOPICAL ×2 (05:51→21:27)
[2024-02-29 06:17] VITALS: BP 104/66; PULSE 77; RESP 17; TEMP 36.3; O2SAT 94
[2024-02-29] MEDS: Pantoprazole Sodium 40 MG Tablet PO ×2 (08:11→21:26)
[2024-02-29] MEDS: Pregabalin 50 MG Capsule 100 MG PO ×2 (08:11→20:35)
[2024-02-29] MEDS: APIXABAN 5 MG TABLET PO ×2 (08:11→21:27)
[2024-02-29] MEDS: Senna/Docusate Sodium 1 Tablet 2 TABLET PO (08:11)
[2024-02-29] MEDS: Sertraline 50 MG Tablet PO (08:11)
[2024-02-29] MEDS: Cholecalciferol (VIT D3) 25 MCG TABLET (1,000 UNITS) 50 MCG PO (08:11)
[2024-02-29] MEDS: Clopidogrel Bisulfate 75 MG Tablet PO (08:11)
[2024-02-29] MEDS: Magnesium Chloride 64 MG Delay Rel.Tablet 128 MG PO (08:11)
[2024-02-29] MEDS: POTASSIUM CITRATE 10 MEQ TABLET.ER PO ×2 (08:11→21:26)
[2024-02-29 18:00] VITALS: BP 108/65; PULSE 94; RESP 18; TEMP 36.5; O2SAT 94
[2024-02-29] MEDS: Atorvastatin Calcium 20 MG Tablet PO (21:27)
[2024-03-01 06:00] VITALS: BP 107/64; PULSE 93; RESP 18; TEMP 36.5; O2SAT 93
[2024-03-01] MEDS: Ketoconazole Cream 1 APPLIC TOPICAL ×2 (06:10→20:21)
[2024-03-01 09:06] VITALS: BP 116/67; PULSE 78
[2024-03-01] MEDS: APIXABAN 5 MG TABLET PO ×2 (09:11→20:20)
[2024-03-01] MEDS: Magnesium Chloride 64 MG Delay Rel.Tablet 128 MG PO (09:12)
[2024-03-01] MEDS: Furosemide 20 MG Tablet PO (09:12)
[2024-03-01] MEDS: Clopidogrel Bisulfate 75 MG Tablet PO (09:12)
[2024-03-01] MEDS: Senna/Docusate Sodium 1 Tablet 2 TABLET PO (09:13)
[2024-03-01] MEDS: Sertraline 50 MG Tablet PO (09:13)
[2024-03-01] MEDS: Cholecalciferol (VIT D3) 25 MCG TABLET (1,000 UNITS) 50 MCG PO (09:13)
[2024-03-01] MEDS: Pantoprazole Sodium 40 MG Tablet PO ×2 (09:13→20:20)
[2024-03-01] MEDS: POTASSIUM CITRATE 10 MEQ TABLET.ER PO ×2 (09:13→20:20)
[2024-03-01] MEDS: Pregabalin 50 MG Capsule 100 MG PO ×2 (09:16→20:19)
[2024-03-01] MEDS: 0.9% Saline Lock 10 ML Syringe IV (09:17)
[2024-03-01 09:46] VITALS: BMI 33.4
[2024-03-01 18:14] VITALS: BP 108/64; PULSE 73; RESP 16; TEMP 36.5; O2SAT 93
[2024-03-01] MEDS: Atorvastatin Calcium 20 MG Tablet PO (20:20)
[2024-03-01 20:30] VITALS: BP 119/81; PULSE 80; RESP 16; TEMP 36.1; O2SAT 95
[2024-03-01 20:54] VITALS: BMI 33.4
[2024-03-02 06:06] VITALS: BP 107/72; PULSE 60; RESP 16; TEMP 36.6; O2SAT 93
[2024-03-02] MEDS: 0.9% Saline Lock 10 ML Syringe IV ×3 (06:07→21:19)
[2024-03-02] MEDS: Ketoconazole Cream 1 APPLIC TOPICAL ×2 (06:08→21:11)
[2024-03-02] MEDS: Cosyntropin 0.25 MG in 0.9% Normal Saline (Pres. free 4 ML 150 MG IV (06:08)
[2024-03-02] MEDS: Pregabalin 50 MG Capsule 100 MG PO ×2 (09:05→21:11)
[2024-03-02] MEDS: APIXABAN 5 MG TABLET PO ×2 (09:06→21:11)
[2024-03-02] MEDS: Clopidogrel Bisulfate 75 MG Tablet PO (09:06)
[2024-03-02] MEDS: Pantoprazole Sodium 40 MG Tablet PO ×2 (09:06→21:12)
[2024-03-02] MEDS: Magnesium Chloride 64 MG Delay Rel.Tablet 128 MG PO (09:06)
[2024-03-02] MEDS: Sertraline 50 MG Tablet PO (09:06)
[2024-03-02] MEDS: Cholecalciferol (VIT D3) 25 MCG TABLET (1,000 UNITS) 50 MCG PO (09:06)
[2024-03-02] MEDS: POTASSIUM CITRATE 10 MEQ TABLET.ER PO ×2 (09:06→21:11)
--- NOTE | 2024-03-02 11:46 | PCM.PROGNOTE ---
Subjective Subjective Afebrile VSS - Maintaining appropriate oxygen saturation on RA Oral intake - FOOD good FLUIDS -question the reliability of the recorded fluid intake. He has only 560 reported yesterday and had 1850 out. Weight has not been recorded since 02/26/2024. Discussed with nursing - no problems that need addressed. Sleeping well at night. Reviewed the THERAPY notes Medication list reviewed. Tolerating sertraline with no adverse reactions. Baseline cortisol is normal at 16.3. It appropriately increased to 42.1 after ACTH. Denies chest pain, shortness of breath, palpitations, cough, cephalgia, dysuria and calf tenderness. Objective Data Objective Data Vital Signs: Vital Signs Temp Pulse Resp BP Pulse Ox O2 Del Method O2 Flow Rate 97.8 F 60 16 107/72 93 Room Air 2 03/02/24 06:06 03/02/24 06:06 03/02/24 06:06 03/02/24 06:06 03/02/24 06:06 03/02/24 06:06 02/29/24 21:39 Oxygen Flow Rate (L/min) 2 Oxygen Delivery Method Room Air Weight: 239 lb 10.279 oz Body Mass Index (BMI) 33.4 Intake & Output: Intake and Output for Last 24 Hours 02/29/24 03/01/24 03/02/24 23:59 23:59 23:59 Intake Total 1700 / 1700 560 / 560 365 / 365 Output Total 1810 / 1810 1850 / 1850 400 / 400 Balance -110 / -110 -1290 / -1290 -35 / -35 Lab / Micro Data 02/26/24 05:03 03/03/24 05:01 Labs: Laboratory Results - last 24 hr 03/02/24 05:57: Cortisol 16.30 03/02/24 07:07: Cortisol 42.10 H Physical Exam Const alert and no apparent distress General Appearance: cooperative HEENT head/scalp atraumatic Resp normal respiratory effort, normal air movement and clear to auscultation bilaterally Cardio regular rate, regular rhythm, no murmurs and no gallops GI normal to inspection, nondistended, normoactive bowel sounds, soft to palpation and non-tender GI Narrative: No guarding with palpation. Extremity no calf tenderness Extremity Narrative: Compression stockings are in place. 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 Continue therapy 2. Recheck a BMP in the a.m. 3. Continue sertraline and if he continues to tolerate will increase to 100 mg daily later in the week. Charges/Coding Visit Charges Inpatient E&M: 84909 [facility] Hosp L1
[2024-03-02 12:55] VITALS: BMI 33.0
--- NOTE | 2024-03-02 15:43 | CASEMGMT ---
Social Work SW emailed referral to [facility] to complete Medicaid application. HARDIK Ricks ELEMENTARY SUPERVISOR
[2024-03-02 17:28] VITALS: BP 113/78; PULSE 83; RESP 14; TEMP 36.7; O2SAT 94; BMI 33.0
[2024-03-02] MEDS: Atorvastatin Calcium 20 MG Tablet PO (21:11)
[2024-03-02 21:22] VITALS: BMI 33.0
[2024-03-02 22:00] VITALS: PULSE 83; RESP 16; O2SAT 95
[2024-03-03 05:08] VITALS: BP 117/72; PULSE 64; RESP 16; TEMP 36.3; O2SAT 95
[2024-03-03] MEDS: Ketoconazole Cream 1 APPLIC TOPICAL ×2 (05:13→21:08)
[2024-03-03 05:49] LABS: International Normalized Ratio 1.6; Prothrombin Time (Protime)PT. 19.3 SECONDS (11.7-14.9)
[2024-03-03 06:27] LABS: Anion Gap 6 (5-15); BUN 18 mg/dL (7-18); BUN/Creat Ratio 14.4 RATIO (10-20); Chloride 110 mmol/L (98-107); Creatinine, Serum 1.25 mg/dL (0.70-1.30); EST Glomerular Filtration Rate 60 mL/min (>60); Est Glom Filt Rate - Afr Amer 73 mL/min (>60); Estimated Creatinine Clearance 67.55 ml/min; Glucose 102 mg/dL (74-106); Potassium 4.1 mmol/L (3.5-5.1); Sodium Level 141 mmol/L (136-145)
[2024-03-03] MEDS: Pregabalin 50 MG Capsule 100 MG PO ×2 (07:44→21:37)
[2024-03-03] MEDS: APIXABAN 5 MG TABLET PO ×2 (07:44→21:08)
[2024-03-03] MEDS: Senna/Docusate Sodium 1 Tablet 2 TABLET PO ×2 (07:44→21:08)
[2024-03-03] MEDS: Pantoprazole Sodium 40 MG Tablet PO ×2 (07:44→21:08)
[2024-03-03] MEDS: Furosemide 20 MG Tablet PO (07:44)
[2024-03-03] MEDS: Cholecalciferol (VIT D3) 25 MCG TABLET (1,000 UNITS) 50 MCG PO (07:44)
[2024-03-03] MEDS: Clopidogrel Bisulfate 75 MG Tablet PO (07:44)
[2024-03-03] MEDS: POTASSIUM CITRATE 10 MEQ TABLET.ER PO ×2 (07:44→21:08)
[2024-03-03] MEDS: Sertraline 50 MG Tablet PO (07:45)
[2024-03-03] MEDS: Magnesium Chloride 64 MG Delay Rel.Tablet 128 MG PO (07:45)
--- NOTE | 2024-03-03 09:33 | CASEMGMT ---
Addendum entered by Chen Flores 03/03/24 10:30: Christy completed ANTONIA screen and pt is over income for community ANTONIA, but meets eligibility for LTC ANTONIA if needed. Sister is aware. Original Note: Social Work SW phoned sister to update on DC plans. SW answered sisters questions or referred to the appropriate discipline. SW educated to referral to [facility] of pt/sister choice for PT/OT/ST/SN/SW. SW offered to send list of providers with quality and resource data ti sister, but sister denied list as she is not knowledgeable about the companies; agreed to [facility]. SW will continue to assist with connection of resources and transition home. SW reiterated all resources were provided to pt in folder at bedside for sister to review and contact companies to set up services, as needed. SW also to provide sister with quad cane script to provide to store of choice for purchase. Sister appreciative of information. SW phoned referral to [facility]. Plan: DC home alone 03/05, [facility] PT/OT/ST/SN/SW, quad cane Chen Flores, CULINARY DIRECTOR LOADER ENGINEER
--- NOTE | 2024-03-03 10:40 | PCM.PROGNOTE ---
Subjective Subjective Afebrile VSS - Maintaining appropriate oxygen saturation on RA Oral intake - FOOD good FLUIDS. Discussed with nursing - no problems that need addressed Reviewed the THERAPY notes Medication list reviewed. All lab drawn this AM was personally reviewed. K is 4.1. BUN is 18 and the creat is stable at 1.25. He does not have pain in the head but, he tells me his head is numb? Not sure what this means. He denies chest pain, shortness of breath, palpitations, nausea/vomiting/abdominal pain, dysuria and calf tenderness. He has been made BEBO and is able to ambulate in his room and in the diallo on rehab fro 7A to 7P independently. Objective Data Objective Data Vital Signs: Vital Signs Temp Pulse Resp BP Pulse Ox O2 Del Method O2 Flow Rate 97.4 F L 64 16 117/72 95 Room Air 2 03/03/24 05:08 03/03/24 05:08 03/03/24 05:08 03/03/24 05:08 03/03/24 05:08 03/03/24 05:08 02/29/24 21:39 Oxygen Flow Rate (L/min) 2 Oxygen Delivery Method Room Air Weight: 236 lb 9.6 oz Body Mass Index (BMI) 33.0 Intake & Output: Intake and Output for Last 24 Hours 03/01/24 03/02/24 03/03/24 23:59 23:59 23:59 Intake Total 560 / 560 1675 / 1675 460 / 460 Output Total 1850 / 1850 880 / 880 Balance -1290 / -1290 795 / 795 460 / 460 Lab / Micro Data 02/26/24 05:03 03/03/24 05:01 Labs: Laboratory Results - last 24 hr 03/03/24 05:01: PT 19.3 H, INR 1.6, Sodium 141, Potassium 4.1, Chloride 110 H, Carbon Dioxide 25.0, Anion Gap 6, BUN 18, Creatinine 1.25, Estim Creat Clear Calc 67.55, Est GFR (MDRD) Af Amer 73, Est GFR (MDRD) Non-Af 60, BUN/Creatinine Ratio 14.4, Glucose 102, Calcium 9.0 Physical Exam Const alert and no apparent distress Constitutional Narrative: Short term memory remains poor. ST has been working with him on a memory book so he will have something to refer to when he needs to order groceries from [employer] or when he needs to call for a ride etc. General Appearance: cooperative HEENT head/scalp atraumatic HEENT Narrative: the seborrheic dermatitis of the left nasolabial fold has resolved. Eyes Eyes Narrative: Still with no vision in the upper visual nye BL. Resp normal respiratory effort, normal air movement and clear to auscultation bilaterally Cardio regular rate, regular rhythm, no murmurs and no gallops GI normal to inspection, nondistended, normoactive bowel sounds, soft to palpation and non-tender GI Narrative: No guarding with palpation. Extremity no calf tenderness Extremity Narrative: Compression stockings are in place. General Extremity: Negative for edema Skin General Skin Exam: no breakdown Rashes: no rashes Psych affect normal Psych Narrative: Seems less anxious. 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 (3) Cognitive dysfunction: (4) Bilateral hemianopia: (5) Seborrheic dermatitis: (6) Lung mass: (7) Adrenal nodule: (8) Pacemaker: (9) Presence of Watchman left atrial appendage closure device: (10) Afib: QUALIFIERS: Atrial fibrillation type: paroxysmal Qualified Code(s): I48.0 - Paroxysmal atrial fibrillation (11) Depression: QUALIFIERS: Depression Type: unspecified Qualified Code(s): F32.A - Depression, unspecified (12) Dyslipidemia: (13) Chronic renal failure, stage 3a: (14) HTN (hypertension): QUALIFIERS: Hypertension type: primary hypertension Qualified Code(s): I10 - Essential (primary) hypertension (15) COPD (chronic obstructive pulmonary disease): QUALIFIERS: COPD type: unspecified COPD Qualified Code(s): J44.9 - Chronic obstructive pulmonary disease, unspecified (16) Glucose intolerance (impaired glucose tolerance): PLAN: Plan 1. Continue therapy 2. Plan DC home with self care on . 3. Will get medications from [facility]'s pharmacy in [place]. They will prepackage and deliver to his home. 4. He will follow up with Kimberley Kumar BALLAST CLEANING MACHINE OPERATOR for primary care. 5. He will be seeing Dr. Nieto for the spiculated RLL 2.6X1.6 cm Lung nodule Charges/Coding Visit Charges Inpatient E&M: 29884 Subs Hosp L1
--- NOTE | 2024-03-03 14:36 | CASEMGMT ---
Social Work SW provided pt with quad cane script. Completed HCPOA and LW with pt, naming sister Kristel Pineda, as HPOCA. Original and copy provided to pt. Copies placed on chart. Chen Flores MSW BALLER TENDER
--- NOTE | 2024-03-03 14:37 | PCM.DC ---
Discharge Instructions Diet Discharge Diet: - (Low fat, Low salt. ) Activity Discharge Activity: May Not Drive, May Shower and - (use cane when ambulating to help with balance. ) Weight Bearing Status: Full weight bearing Keep extremity elevated above heart level: Legs Dressing / Incision Call your doctor if you observe: Fever of 101 or Higher, Inability to urinate, Shortness of breath, Dizziness, Fainting spells, Swelling in the ankles, Chest pain, Increased palpitations (irregular heartbeat), Calf discomfort and - (STROKE symptoms: facial droop, slurred speech, inability to get words out, weakness on 1 side of the body and not the other, numbness on 1 side of the body and not the other, inability to maintain your balance sitting or standing, vertigo. ) Follow Up Care Please Follow Up With: Kimberley Kumar Fabby, PATENTED HOGSHEAD ASSEMBLER-C When: You also have scheduled appts with Dr. Nieto from pulmonary medicine, Dr. Erickson from cardiology and Dr. Berny Mcgill(eye doctor) Test Results: Test results from this visit will be discussed in further detail at your follow-up appointment, if applicable. Discharge Plan Admission Admit Date/Time: 02/25/24 16:33 Primary Reason for Your Visit: Post stroke debility. Attending Provider: Nallely Spears Primary Care Provider: Mitch Peña Discharge Orders/Prescriptions Prescriptions: New ketoconazole 2 % Cream 1 applic topical 0600,2200 PRN (Reason: facial rash) Qty: 1 0RF Protocol: *Topical Application Instructions APPLICATION INSTRUCTIONS: apply to the rash in the left nasolabial fold. Rx Instructions: Apply to the rash on the face twice a day as needed magnesium chloride 64 mg tablet,delayed release (DR/EC) 64 mg PO BID Qty: 60 0RF pregabalin 50 mg Capsule 100 mg PO BID Qty: 120 0RF Rx Instructions: 2 tabs twice a day furosemide 20 mg Tablet 20 mg PO QODAY Qty: 15 0RF atorvastatin 40 mg tablet 40 mg PO QHS Qty: 30 0RF sertraline 100 mg tablet 100 mg PO DAILY Qty: 30 0RF cholecalciferol (vitamin D3) 25 mcg (1,000 unit) capsule 25 mcg PO DAILY Qty: 30 0RF Continued clopidogrel 75 mg tablet 75 mg PO DAILY Qty: 30 0RF potassium citrate 10 mEq (1,080 mg) tablet extended release 10 meq PO BID Qty: 60 0RF pantoprazole 40 mg tablet,delayed release (DR/EC) 40 mg PO BID Qty: 60 0RF Eliquis 5 mg Tablet 5 mg PO BID Qty: 60 0RF Discontinued carvedilol 3.125 mg tablet 3.125 mg PO BID Rx Instructions: must administer with a meal/food cholecalciferol (vitamin D3) 50 mcg (2,000 unit) capsule 50 mcg PO DAILY magnesium oxide 400 mg magnesium capsule 400 mg PO DAILY pregabalin [Lyrica] 150 mg capsule 150 mg PO BID spironolactone [Aldactone] 25 mg tablet 12.5 mg PO DAILY torsemide 20 mg tablet 10 mg PO QODAY aspirin [Adult Aspirin Regimen] 81 mg tablet,delayed release (DR/EC) 81 mg PO DAILY Qty: 1 0RF Rx Instructions: Stop when apixaban is started on 02/28/2024 rosuvastatin 5 mg tablet 10 mg PO DAILY Qty: 1 0RF sennosides-docusate sodium [Stool Softener-Stimulant Laxat] 8.6-50 mg Tablet 2 tab PO BID Referrals / Follow Up: [facility] [Other] - 03/23/24 9:50 am (with Kimberley Kumar) Terry Erickson MD [Med Staff - Active Staff] - 04/02/24 1:00 pm Boom Nieto MD [Med Staff - Active Staff] - (Office will call Yenny to schedule appointment. If you do not hear from them in 1 week call the office. you will be seen for Lung Nodule ) Berny Mcgill MD [Med Staff - Active Staff] - 03/11/24 9:40 am (bring insurance card, list of meds) Disposition Disposition (needs filled in before D/C Order can be placed): Home Health Service
[2024-03-03 15:01] VITALS: BMI 33.0
[2024-03-03 16:00] VITALS: BP 116/79; PULSE 86; RESP 19; TEMP 36.1; O2SAT 95
[2024-03-03 20:59] VITALS: BMI 33.0
[2024-03-03] MEDS: Atorvastatin Calcium 20 MG Tablet PO (21:08)
[2024-03-03 22:00] VITALS: PULSE 86; RESP 15; O2SAT 96
[2024-03-04 05:21] VITALS: BP 113/77; PULSE 83; RESP 13; TEMP 36; O2SAT 93
[2024-03-04 05:26] VITALS: BMI 32.8
[2024-03-04] MEDS: Ketoconazole Cream 1 APPLIC TOPICAL ×2 (06:03→21:10)
[2024-03-04] MEDS: Cholecalciferol (VIT D3) 25 MCG TABLET (1,000 UNITS) 50 MCG PO (08:51)
[2024-03-04] MEDS: POTASSIUM CITRATE 10 MEQ TABLET.ER PO ×2 (08:51→21:06)
[2024-03-04] MEDS: Clopidogrel Bisulfate 75 MG Tablet PO (08:51)
[2024-03-04] MEDS: Senna/Docusate Sodium 1 Tablet 2 TABLET PO (08:51)
[2024-03-04] MEDS: APIXABAN 5 MG TABLET PO ×2 (08:51→21:07)
[2024-03-04] MEDS: Sertraline 50 MG Tablet PO (08:52)
[2024-03-04] MEDS: Magnesium Chloride 64 MG Delay Rel.Tablet 128 MG PO (08:52)
[2024-03-04] MEDS: Pantoprazole Sodium 40 MG Tablet PO ×2 (08:52→21:06)
[2024-03-04] MEDS: Pregabalin 50 MG Capsule 100 MG PO ×2 (08:57→21:07)
[2024-03-04 10:43] VITALS: BMI 32.8
--- NOTE | 2024-03-04 12:03 | EX.DISCHREH ---
Providers Date of Admission: 02/25/24 Date of Discharge: 03/05/24 Primary Care Physician: Dr. Mitch Peña MD none Reason For Visit: CVA Diagnosis Discharge Diagnosis (1) Debility: Status: Acute Code(s): R53.81 - Other malaise (2) CVA (cerebral vascular accident): Status: Acute Code(s): I63.9 - Cerebral infarction, unspecified Qualifiers: CVA mechanism: thrombosis Laterality of affected vessel: bilateral Precerebral and cerebral artery: posterior cerebral artery Qualified Code(s): I63.333 - Cerebral infarction due to thrombosis of bilateral posterior cerebral arteries Plan: MRI done on 02/24/2024 showed moderate acute infarction in the inferior and medial aspects of the left temporal lobe, mild acute infarction in the posterior medial aspect of the right temporal lobe and acute infarction in the parasagittal region of the occipital lobes. These are presumed to be embolic. He is being discharged on Eliquis 5 mg BID. I suspect he has lung CA.......he has a spiculated mass measuring 2.6 X 1.[address] in the RLL on CT scan and he was a long time heavy smoker in the past. I can not rule out at this point that he is hypercoagulable. (3) Cognitive dysfunction: Status: Acute Code(s): F09 - Unspecified mental disorder due to known physiological condition Plan: Poor short term memory. 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 (5) Seborrheic dermatitis: Status: Resolved Code(s): L21.9 - Seborrheic dermatitis, unspecified Plan: Treated with Nizoral. RX given at [place] to use PRN for recurrent seborrheic dermatitis of the nasolabial folds exacerbated by his CPAP mask. (6) Lung mass: Status: Acute Code(s): R91.8 - Other nonspecific abnormal finding of lung field Plan: Follow-up up appointment is being scheduled with Dr. Boom Nieto. (7) Adrenal nodule: Status: Acute Code(s): E27.9 - Disorder of adrenal gland, unspecified Plan: May be an adenoma but, can not R/O metastatic lesion. Cortrosyn stim test showed normal adrenal function. (8) Pacemaker: Status: Inactive Code(s): Z95.0 - Presence of cardiac pacemaker (9) Presence of Watchman left atrial appendage closure device: Status: Inactive Code(s): Z95.818 - Presence of other cardiac implants and grafts Plan: RADHA at [facility] showed the watchman device to be in good position with no clots in the left atrial appendage. EF is 55% with no wall motion abnormalities. There is moderate spontaneous contrast in the LE but, this is thought to be due to the Watchman device. (10) Afib: Status: Inactive Code(s): I48.91 - Unspecified atrial fibrillation Qualifiers: Atrial fibrillation type: paroxysmal Qualified Code(s): I48.0 - Paroxysmal atrial fibrillation Plan: Paroxysmal. Has been in a regular rhythm while on rehab. He is being discharged from rehab on Eliquis. The strokes did not happen until approximately 1 week after the device was inserted. The strokes occurred on both sides of the brain and are thought to be due to emboli but, we have found no source. I suspect he has lung CA and he may be hypercoagulable. I think he should continue Eliquis indefinitely until we have a diagnosis on the Lung mass. (11) Depression: Status: Chronic Code(s): F32.A - Depression, unspecified Qualifiers: Depression Type: unspecified Qualified Code(s): F32.A - Depression, unspecified Plan: Has been depressed in the past but, has never been on an antidepressant. He is also anxious. Lyrica is associated with depression but, not anxiety.......he was started on Sertraline to treat anxiety/depression and he has had no adverse effects. (12) Dyslipidemia: Status: Inactive Code(s): E78.5 - Hyperlipidemia, unspecified (13) Chronic renal failure, stage 3a: Status: Inactive Code(s): N18.31 - Chronic kidney disease, stage 3a Plan: Creat has improved since he has been on rehab. The GFR is now 73 with a creat clearance of 75.55 which is consistent with stage 2 CRF. He is better hydrated now. (14) HTN (hypertension): Status: Inactive Code(s): I10 - Essential (primary) hypertension Qualifiers: Hypertension type: primary hypertension Qualified Code(s): I10 - Essential (primary) hypertension Plan: Well controlled with no BP med at present. He was taking Coreg 3.125 BID at admission and this had to be discontinued for hypotension. He has been in a regular rhythm since arrival on rehab. IF he should have PAF then would consider using Digoxin for rate control. With the recent strokes would want to keep the BP > 110 to facilitate better cerebral perfusion. Blood pressures off Coreg and spironolactone prior to discharge have ranged from 110/76 to 117/72. Heart rate has ranged from 64-94. (15) COPD (chronic obstructive pulmonary disease): Status: Inactive Code(s): J44.9 - Chronic obstructive pulmonary disease, unspecified Qualifiers: COPD type: unspecified COPD Qualified Code(s): J44.9 - Chronic obstructive pulmonary disease, unspecified Plan: Lungs have been CTA and he has no SOB with exertion. (16) Glucose intolerance (impaired glucose tolerance): Status: Inactive Code(s): R73.02 - Impaired glucose tolerance (oral) Plan: HGBA1C was 5.9 at admission to the hospital. He is on a carb consistent diet with no concentrated sweets. Low fat and low salt. (17) Ankylosing spondylitis: Status: Chronic Code(s): M45.9 - Ankylosing spondylitis of unspecified sites in spine Qualifiers: Ankylosing spondylitis location: unspecified site of spine Qualified Code(s): M45.9 - Ankylosing spondylitis of unspecified sites in spine Plan: He has been told he has ankylosing spondylitis but, can not recall how this diagnosis was made. His father had ankylosing spondylitis. He is not c/o back pain. Plain x-rays of the lumbosacral spine showed minimal anterolisthesis of L5 over S1 with preservation of normal lumbar lordosis. There is normal vertebral body height. He has mild dextroscoliosis. Disc spaces are within normal limits. He has endplate spondylosis of the lower lumbar spine and facet arthropathy at L5-S1 which is mild. ESR is normal at 14 but the CRP is mildly elevated at 13.6. (18) Neuropathy: Status: Chronic Code(s): G62.9 - Polyneuropathy, unspecified Plan: This is presumed to be due to ankylosing spondylitis and he is on Lyrica for radicular pain BUT, he has never had nerve conduction studies. He gets pain in the legs with walking a long way which may be due to neurogenic claudication BUT, it could also be due to PVD. He has never had arterial studies of the legs. Lyrica was decreased to 100 mg BID from 150 mg BID due to cognitive decline and depression. He had no recurrence of pain in his legs and he has been doing laps in the diallo with a cane and has denied pain. Plan 1. Continue therapy 2. Plan DC home with self care today. 3. Will get medications from [facility] in [place]. They will prepackage and deliver to his home going forward. 4. He will follow up with Kimberley Kumar NP for primary care. 5. He will be seeing Dr. Nieto for the spiculated RLL 2.6X1.6 cm Lung nodule 6. Follow up has also been arranged with a dentist for the broken tooth, with Dr. Erickson form [place] [facility] for cardiology and with Dr. Berny Mcgill from ophthalmology. 7. He will have HHC with [facility] for PT/OT/ST/SN/SW. 8. DME at discharge is quad cane. Medications at Discharge Home Medications apixaban 5 mg tablet (Eliquis) 5 mg PO BID Blood thinner #60 tabs 03/03/24 atorvastatin 40 mg tablet 40 mg PO QHS #30 tabs 03/03/24 cholecalciferol (vitamin D3) 25 mcg (1,000 unit) capsule 25 mcg PO DAILY #30 caps 03/03/24 clopidogrel 75 mg tablet 75 mg PO DAILY BLOOD THINNER #30 tabs 03/03/24 furosemide 20 mg tablet 20 mg PO QODAY #15 tabs 03/03/24 ketoconazole 2 % topical cream 1 applic topical 0600,2200 PRN facial rash #1 tube 03/03/24 magnesium chloride 64 mg (magnesium chloride) tablet,delayed release 64 mg PO BID #60 tabs 03/03/24 pantoprazole 40 mg tablet,delayed release 40 mg PO BID STOMACH ACID #60 tabs 03/03/24 potassium citrate 10 mEq (1,080 mg) tablet,extended release 10 meq PO BID SUPPLEMENT #60 tabs 03/03/24 pregabalin 50 mg capsule 100 mg (2 x 50 mg) PO BID #120 caps 03/03/24 sertraline 100 mg tablet 100 mg PO DAILY #30 tabs 03/03/24 Hospital Course Operations None Procedures Transesophageal Echo (Interpretation Summary Normal LV size. Left ventricular systolic function is normal. The left ventricular ejection fraction is 55 %. The left atrium is moderately enlarged. No thrombus is detected in the left atrial appendage. Left atrial appendage has an occluder device noted There is moderate spon) Summary of Care Provided Minutes Spent on Discharge: 50 Hospital Course: YESY LAWLER is a 73 YO M with a PMH of HTN, HLD, ankylosing spondylitis, COPD, coronary artery disease, paroxysmal atrial fibrillation, depression, tobacco dependence in remission, history of pacemaker implantation, history of a right lower lobe 2.6 cm x 1.6 cm spiculated nodule on a CT scan done February 07, 2024, adrenal mass, history of ankylosing spondylitis and a recent Watchman procedure at the [facility]. He had stopped Coumadin and was transitioned to Plavix and ASA on the advice of cardiology approximately 1 week prior to presenting to the ED at [facility] on 02/21/24 c/o BANDA, loss of vision in the BL upper visual nye and confusion. The sx had begun on 02/20/24. CT of the head showed a moderate acute left posterior cerebral artery territory infarct and a mild acute right posterior cerebral artery territory infarct. CTA showed thrombus and occlusion of the mid left and distal right posterior cerebral arteries with no evidence of significant stenosis of the carotid or vertebral arteries of the neck. He was admitted to the hospitalist service for medical management. A transthoracic echocardiogram was done on 02/21/2024 and showed a left ventricular ejection fraction of 50% with mid anteroseptal hypokinesis. Both atria were mildly enlarged. The bubble contrast study was negative for right to left interatrial shunt. Consult was obtained with neurology on 02/24/24 and MRI and cardiology consult was recommended. MRI was done on 02/24/2024 and showed moderate acute infarction in the inferior and medial aspects of the left temporal lobe, mild acute infarction in the posterior medial aspect of the right temporal lobe and acute infarction in the parasagittal region of the occipital lobes. He underwent a RADHA on 02/25/24 and this showed a left ventricular systolic ejection fraction of 55%. The left atrium was moderately enlarged. There was no thrombus detected in the left atrial appendage and the left atrial appendage had an occluder device noted. There was moderate spontaneous contrast in the left atrium and no obvious thrombus or source of embolus noted. While in the hospital he was seen the PT/OT/ST and acute inpt rehab was recommended at [place]. He was transferred to the acute inpt rehab unit at [facility] on 02/25/24 for 3 hours of therapy daily to restore function/independence at or near his level prior to the strokes. Prior to the strokes he was living alone and independent with all ADL's. Kwasi has significant short term memory deficits which make it hard for him to remember things from 1 hour to the next. He also has persistent loss of vision in the superior visual nye of both eyes. This makes it difficult for him to navigate but, he has been doing a great job ambulating in the halls at [facility] with a quad cane with no LOB. He lives in [place] and will not be able to drive. His sister, Juanita lives in [place] and can help him out with a few things but, her memory is also impaired. The speech therapist worked with Kwasi intensively while he was on rehab to set up alarms on his phone for when to take his medications, how to arrange for home grocery delivery from [facility], numbers to call for transportation and all his doctor appts that have been scheduled. Arrangements were made with [facility]'s pharmacy to prepackage his medications. His sister will sampler pickup the medications on the day of [place] and she will take the Potassium supplement and the Pantoprazole to [facility] so they can place it with his meds.....he was not due for refills on these medications yet. Kwasi wanted to have all his doctors in [place] because he will not be able to get transportation to [place] and this was arranged for him. He has quite a few things to follow up on. Of utmost importance is consultation with Dr. Nieto on the spiculated RLL lung nodule which I suspect is likely due to CA. He has a broken tooth in the mandible and a appt has been made for him to see a dentist. He has an appt with ophthalmology regarding the superior visual field cuts. Going forward he needs to be evaluated for ankylosing spondylitis. I am not sure the neuropathic pain in the feet for which he takes Lyrica is actually due to nerve pain. He has PVD and decreasing the Lyrica dose has not increased the pain in his feet....in fact he did not have any pain in his feet while on rehab but, he is not ambulating on long walks like he was doing prior to the stroke. I think it would be reasonable for him to have arterial studies as an OP. The plain x-rays of the lumbosacral spine where unimpressive. He tells me his father had ankylosing spondylitis and he has been diagnosed as this but does not know how it was diagnosed. We have no records of an HLA-B27 or more advanced imaging of the lumbosacral spine. He was started on an Sertraline at presentation to rehab. He c/o feeling depressed. He is quite anxious as well. He tolerated 50 mg daily without any adverse side effects and the dose was increased to 100 mg a day prior to DC. I think he would benefit from psychotherapy to learn how to deal with not only his disabilities but, also the potential diagnosis of Lung CA going forward. I am not sure what caused the multiple BL cerebral infarcts but, I am presuming they are embolic. The strokes occurred about 1 week after he had Coumadin discontinued. He had no AF in the hospital and no AF while on rehab. A RADHA showed the Watchman device to be in good position and there were no clots in the LA appendage. I am suspicious that he may be hypercoagulable due to possible lung cancer. He is being discharged on Eliquis 5 mg BID. He was given a coupon for the first month of Eliquis but, will need to get prior authorization as an OP for either Eliquis or Xarelto. At the time of discharge from rehab Kwasi was mod I for grooming while standing at the sink. He was independent with upper body dressing and mod I for lower body dressing. He is also mod I for toilet transfer and toileting. He is independent with bathing. He has ambulated 550 feet on various surfaces at supervision/mod I..... Supervision for directional directions while off the rehab unit. He has ambulated on the rehab unit up to 660 feet independently with a quad cane with no loss of balance. He is able to ascend/descend 8 steps with 1 handrail and a straight cane. The therapy team felt he would be safe to return to his apt at [facility] for self care. ST worked extensively with him on memory and setting up memory aids on his phone. He will have [facility] home health care for PT/OT/ST/SN/manager social work. His sister was given a prescription for a quad cane which she picked up and brought to Kwasi's room on the day of his discharge. All follow-up appointments are listed on this document further on. Physical Exam Const alert and no apparent distress Constitutional Narrative: Short term memory remains poor. has been working with him on a memory book so he will have something to refer to when he needs to order groceries from [employer] or when he needs to call for a ride etc. General Appearance: cooperative HEENT head/scalp atraumatic HEENT Narrative: the seborrheic dermatitis of the left nasolabial fold has resolved. Eyes Eyes Narrative: Still with no vision in the upper visual nye BL. Resp normal respiratory effort, normal air movement and clear to auscultation bilaterally Cardio regular rate, regular rhythm, no murmurs and no gallops GI normal to inspection, nondistended, normoactive bowel sounds, soft to palpation and non-tender GI Narrative: No guarding with palpation. Extremity no calf tenderness Extremity Narrative: Compression stockings are in place. General Extremity: Negative for edema Skin General Skin Exam: no breakdown Rashes: no rashes Psych affect normal Psych Narrative: Seems less anxious. Appearance: appropriate Attitude: No agitated Weight / BMI Weight Weight: 235 lb 7.259 oz Body Mass Index (BMI) 32.8 ABG / Lab / Microbiology Data 02/26/24 05:03 03/03/24 05:01 Indicators for Scoring Admitted with or Primary Diagnosis of CVA/Stroke: Yes Hx of CVA/Stroke: Yes Modified [place] Score MRS Score at time of Evaluation: 3-Moderate disability NIHSS NIHSS 1a. Level of Consciousness: Alert; keenly responsive 1b. LOC Questions: Answers BOTH questions correctly. 1c. LOC Commands: Performs both tasks correctly. 2. Best Gaze: Normal 3. Visual: Bilateral hemianopia (blind, including cortical blindness) (in the superior temporal and nasal visual field of both eyes. ) 4. Facial Palsy: Normal symmetrical movements 5a. Left Arm: No drift; arm holds 90 (or 45) degrees for full 10 seconds 5b. Right Arm: No drift; arm holds 90 (or 45) degrees for full 10 seconds 6a. Left Leg: No drift; leg holds 30-degree position for full 5 seconds 6b. Right Leg: No drift; leg holds 30-degree position for full 5 seconds 7. Limb Ataxia: Absent 8. Sensory: Normal; no sensory loss 9. Best Language: Weev-bg-vozhufan aphasia; 10. Dysarthria: Normal 11. Extinction and Inattention: No abnormality Total: 4 Stroke Questions Stroke Team Activated: No D/C Instructions Discharge Diet: - (Low fat, Low salt. ) Weight Bearing Status: Full weight bearing Keep extremity elevated above heart level: Legs Call your doctor if you observe: Fever of 101 or Higher, Inability to urinate, Shortness of breath, Dizziness, Fainting spells, Swelling in the ankles, Chest pain, Increased palpitations (irregular heartbeat), Calf discomfort and - (STROKE symptoms: facial droop, slurred speech, inability to get words out, weakness on 1 side of the body and not the other, numbness on 1 side of the body and not the other, inability to maintain your balance sitting or standing, vertigo. ) Please Follow Up With: Kimberley Kumar, [employer]PER-C When: You also have scheduled appts with Dr. Nieto from pulmonary medicine, Dr. Erickson from cardiology and Dr. Berny Mcgill(eye doctor) Meaningful Use Info Meaningful Use Meaningful Use Diagnoses (Choose all that apply): Ischemic CVA CVA Therapy Assessed for PT,OT and/or ST?: Yes Ischemic Stroke Antithrombotic order at d/c?: Yes Dx of Atrial fib/flutter?: Yes Anticoagulant at discharge?: Yes Statin Dosing Therapy Reference: STATIN DOSE THERAPY REFERENCE: * Patients > 75 years receive moderate or high dose statin therapy. * Patients 75 years or YOUNGER should receive HIGH intensity statin dose unless contraindicated. You will be required to document reason for non-treatment if statin daily dose does not meet guidelines. HIGH DOSE STATIN THERAPY DAILY Atorvastatin > than or = to 40 mg Rosuvastatin > than or = to 20 mg Amlodipine + Atorvastatin > than or = to 2.5/40 mg Ezetimibe + Simvastatin 10/80 mg Simvastatin 80mg Statins at discharge?: Yes If patient is 75 or younger, pt will be discharged on HIGH intensity statin.: Yes Primary Dx Acute Ischemic CVA?: Yes IV thrombolytic ordered during stay?: No Reason IV thrombolytic not ordered: Procedure not Indicated Discharge Plan Admission Admit Date/Time: 02/25/24 16:33 Primary Reason for Your Visit: Post stroke debility. Attending Provider: Nallely Spears Primary Care Provider: Mitch Peña Discharge Orders/Prescriptions Prescriptions: New ketoconazole 2 % Cream 1 applic topical 0600,2200 PRN (Reason: facial rash) Qty: 1 0RF Protocol: *Topical Application Instructions APPLICATION INSTRUCTIONS: apply to the rash in the left nasolabial fold. Rx Instructions: Apply to the rash on the face twice a day as needed magnesium chloride 64 mg tablet,delayed release (DR/EC) 64 mg PO BID Qty: 60 0RF pregabalin 50 mg Capsule 100 mg PO BID Qty: 120 0RF Rx Instructions: 2 tabs twice a day furosemide 20 mg Tablet 20 mg PO QODAY Qty: 15 0RF atorvastatin 40 mg tablet 40 mg PO QHS Qty: 30 0RF sertraline 100 mg tablet 100 mg PO DAILY Qty: 30 0RF cholecalciferol (vitamin D3) 25 mcg (1,000 unit) capsule 25 mcg PO DAILY Qty: 30 0RF Continued clopidogrel 75 mg tablet 75 mg PO DAILY Qty: 30 0RF potassium citrate 10 mEq (1,080 mg) tablet extended release 10 meq PO BID Qty: 60 0RF pantoprazole 40 mg tablet,delayed release (DR/EC) 40 mg PO BID Qty: 60 0RF Eliquis 5 mg Tablet 5 mg PO BID Qty: 60 0RF Discontinued carvedilol 3.125 mg tablet 3.125 mg PO BID Rx Instructions: must administer with a meal/food cholecalciferol (vitamin D3) 50 mcg (2,000 unit) capsule 50 mcg PO DAILY magnesium oxide 400 mg magnesium capsule 400 mg PO DAILY pregabalin [Lyrica] 150 mg capsule 150 mg PO BID spironolactone [Aldactone] 25 mg tablet 12.5 mg PO DAILY torsemide 20 mg tablet 10 mg PO QODAY aspirin [Adult Aspirin Regimen] 81 mg tablet,delayed release (DR/EC) 81 mg PO DAILY Qty: 1 0RF Rx Instructions: Stop when apixaban is started on 02/28/2024 rosuvastatin 5 mg tablet 10 mg PO DAILY Qty: 1 0RF sennosides-docusate sodium [Stool Softener-Stimulant Laxat] 8.6-50 mg Tablet 2 tab PO BID Referrals / Follow Up: Daniel Johnson [facility] [Other] - 03/23/24 9:50 am (with Kimberley Kumar) [facility] [Other] - 03/10/24 9:20 am (Charge will be $138 for exam and xrays) Terry Erickson MD [Med Staff - Active Staff] - 04/02/24 1:00 pm Boom Nieto MD [Med Staff - Active Staff] - (Office will call [facility] to schedule appointment. If you do not hear from them in 1 week call the office. you will be seen for Lung Nodule ) Berny Mcgill MD [Med Staff - Active Staff] - 03/11/24 9:40 am (bring insurance card, list of meds) Disposition Disposition (needs filled in before D/C Order can be placed): Home Health Service Charges/Coding Visit Charges Inpatient E&M: 71218 Disch Hosp >30min
[2024-03-04 17:54] VITALS: BP 116/81; PULSE 94; RESP 16; TEMP 36.3; O2SAT 95
[2024-03-04] MEDS: Atorvastatin Calcium 20 MG Tablet PO (21:07)
[2024-03-05 05:00] VITALS: BMI 32.8
[2024-03-05 06:00] VITALS: BP 110/76; PULSE 70; RESP 16; TEMP 37.2; O2SAT 98
[2024-03-05] MEDS: Ketoconazole Cream 1 APPLIC TOPICAL (06:03)
[2024-03-05] MEDS: Pregabalin 50 MG Capsule 100 MG PO (07:42)
[2024-03-05] MEDS: POTASSIUM CITRATE 10 MEQ TABLET.ER PO (07:42)
[2024-03-05] MEDS: Pantoprazole Sodium 40 MG Tablet PO (07:42)
[2024-03-05] MEDS: Cholecalciferol (VIT D3) 25 MCG TABLET (1,000 UNITS) 50 MCG PO (07:43)
[2024-03-05] MEDS: APIXABAN 5 MG TABLET PO (07:43)
[2024-03-05] MEDS: Sertraline 50 MG Tablet PO (07:43)
[2024-03-05] MEDS: Furosemide 20 MG Tablet PO (07:43)
[2024-03-05] MEDS: Clopidogrel Bisulfate 75 MG Tablet PO (07:43)
[2024-03-05] MEDS: Magnesium Chloride 64 MG Delay Rel.Tablet 128 MG PO (07:43)
--- NOTE | 2024-03-05 09:06 | NURSING ---
Discharge information faxed to [facility]. Referral faxed to Dr. Nieto.
--- NOTE | 2024-03-05 10:47 | NURSING ---
Reviewed discharge instructions and community services with pt and sister. Provided ta couhailey.
== END 2024-03-05 11:00 | disposition home health service (06) | DRG 56 ==
PROVIDERS: Admitting Provider Internal Medicine; PCP Family Medicine; Referring Provider Internal Medicine; Visit Provider Internal Medicine
DX: I69.398 Other sequelae of cerebral infarction (principal); I49.01 Ventricular fibrillation; E27.8 Other specified disorders of adrenal gland; H53.47 Heteronymous bilateral field defects; I48.0 Paroxysmal atrial fibrillation; E78.5 Hyperlipidemia, unspecified; G62.9 Polyneuropathy, unspecified; N18.31 Chronic kidney disease, stage 3a; J44.9 Chronic obstructive pulmonary disease, unspecified; I73.9 Peripheral vascular disease, unspecified; I12.9 Hypertensive chronic kidney disease with stage 1 through stage 4 chronic kidney disease, or unspecified chronic kidney disease; F32.A Depression, unspecified; M43.17 Spondylolisthesis, lumbosacral region; M41.9 Scoliosis, unspecified; M54.10 Radiculopathy, site unspecified; I25.10 Atherosclerotic heart disease of native coronary artery without angina pectoris; L21.9 Seborrheic dermatitis, unspecified; F09 Unspecified mental disorder due to known physiological condition; M54.9 Dorsalgia, unspecified; S02.5XXD Fracture of tooth (traumatic), subsequent encounter for fracture with routine healing; Z79.82 Long term (current) use of aspirin; Z95.0 Presence of cardiac pacemaker; Z87.891 Personal history of nicotine dependence; Z79.02 Long term (current) use of antithrombotics/antiplatelets; Z79.899 Other long term (current) drug therapy; R91.8 Other nonspecific abnormal finding of lung field
CPT/HCPCS: 36415; 72110; 80048; 80053; 82533; 83735; 84100; 84443; 85027; 85610; 85652; 86140; 92523; 92610; 94668; 97110; 97112; 97116; 97129; 97130; 97162; 97166; 97530; 97535; 97802; A4216; J0834; J3490

== ENCOUNTER → 2024-03-24 | Outpatient (CLI) | payer MEDICARE, OTHER, SELFPAY ==
[2024-03-24 17:08] LABS: Absolute Lymphocyte Count 1.77 X10^3/uL (0.83-4.51); Absolute Neutrophil Count 3.4 X10^3/uL (2.0-7.7); Basophil# 0.08 X10^3/uL; Basophil% 1.3 % (0-1); Eosinophil# 0.16 X10^3/uL; Eosinophils% 2.6 % (0-5); Hematocrit 48.1 % (40-54); Hemoglobin 15.7 g/dL (13.0-16.5); Lymphocyte # 1.77 X10^3/ul (0.83-4.51); Lymphocyte % 28.7 % (19-41); Mean Corp Hgb Conc 32.6 g/dL (32-36); Mean Corpuscular Hgb 29.2 pg (27.0-32.0); Mean Corpuscular Volume 89.4 fL (80-94); Mean Platelet Vol. 10.7 fl (6.2-12.0); Monocyte# 0.77 X10^3/uL; Monocyte% 12.5 % (0-10); NRBC Flagged by Analyzer 0 % (0-5); Neutrophil # 3.38 X10^3/uL (2.7-7.7); Neutrophil % 54.7 % (47-70); Platelet Count 210 K/mm3 (150-450); RBC Distribution Width CV 16.3 % (11.6-14.6); Red Blood Count 5.38 M/mm3 (4.6-6.2); White Blood Count 6.2 K/mm3 (4.4-11.0)
[2024-03-24 17:28] LABS: ALB/GLOB Ratio 0.9 RATIO (0.9-2.4); AST(SGOT) 19 U/L (15-37); Alanine Aminotransfer ALT/SGPT 26 U/L (16-61); Albumin, Serum 3.1 g/dL (3.2-5.0); Alkaline Phosphatase 122 U/L (45-117); Anion Gap 5 (5-15); BUN 10 mg/dL (7-18); BUN/Creat Ratio 7.2 RATIO (10-20); Calcium,Total 8.5 mg/dL (8.5-10.1); Chloride 109 mmol/L (98-107); Cholesterol 88 mg/dL (200); Creatinine, Serum 1.38 mg/dL (0.70-1.30); EST Glomerular Filtration Rate 54 mL/min (>60); Est Glom Filt Rate - Afr Amer 65 mL/min (>60); Globulin 3.3 g/dL (2.2-4.2); Glucose 98 mg/dL (74-106); High Density Lipoprotein 37 mg/dL; Potassium 4.1 mmol/L (3.5-5.1); Protein, Total 6.4 g/dL (6.4-8.2); Sodium Level 141 mmol/L (136-145); Thyroid Stim Hormone (TSH) 0.61 uIU/mL (0.358-3.74); Triglycerides 134 mg/dL; Very Low Density Lipoprotein 27 mg/dL (5-40)
== END | disposition home or self-care (01) ==
LOC: VSLAB 14:00
PROVIDERS: Visit Provider Nurse Practitioner Family
DX: I10 Essential (primary) hypertension (principal); E78.5 Hyperlipidemia, unspecified; F41.9 Anxiety disorder, unspecified
CPT/HCPCS: 36415; 80053; 80061; 84443; 85025

== ENCOUNTER → 2024-04-21 | Outpatient (CLI) | payer MEDICARE, OTHER, SELFPAY ==
--- NOTE | 2024-04-21 11:30 | PET_ITS ---
EXAMINATION: FDG PET-CT INDICATIONS: A 73-year-old male with a history of pulmonary nodularity. COMPARISON EXAMINATION: None available. INDEX LESION SIZE SUV INTERPRETATION Right lower lung field, right lower lobe 17.9 mm 7.3 Fulfills quantitative criteria for viable neoplasm, histopathologic analysis recommended. TECHNIQUE: Following the intravenous administration of 14.67 mCi of F-18 deoxyglucose via the right antecubital fossa, multiplanar image acquisitions of the head, neck, chest, abdomen and pelvis to level of mid-thigh, lower extremities obtained at one hour post radiopharmaceutical administration contemporaneously interpreted with the current CT of the head, neck, chest, abdomen and pelvis to level of mid-thigh, lower extremities dated 04/21/24 via coregistration reveal: SERUM GLUCOSE LEVEL: 106 mg/dl. HEIGHT: 71 inches. WEIGHT: 230 lbs. FINDINGS: Head/Neck: There is no evidence of abnormal increased glucose metabolism in the pharyngeal mucosal space, parapharyngeal space, bilateral-lateral and anterior neck, hypopharynx and distribution of the laryngeal structures. The visualized portion of the cerebral cortical-subcortical structures demonstrate symmetric and preserved glucose metabolism. CHEST: Facilitated uptake is noted in the right lower posteromedial lung zone, right lower lobe generating a calculated maximum standard uptake value of 7.3. The maximum axial diameter of the metabolic, morphologic abnormality is 17.[address] findings are as follows. An azygous fissure is demonstrated. Ventricular pacemaker placement is defined. Mitral valve replacement is demonstrated. There is atherosclerotic calcification defined in the thoracic aorta without evidence of dilatation-aneurysm formation. Coronary arterial calcification is observed. Emphysematous changes are defined in the bilateral upper-mid lung zones. Abdomen/Pelvis: Normal physiologic distribution of the radiopharmaceutical is apparent in the hepatic (3.4) and splenic parenchyma, both renal units, bladder and visualized intestinal tract. Diffuse radiopharmaceutical concentration is noted in all four quadrants of the abdomen and pelvis. Pertinent abdomen and pelvis CT findings are as follows. There is atherosclerotic calcification defined in the abdominal aorta without evidence of dilatation-aneurysm formation. Abdominal-pelvic arterial calcification is defined. Colonic diverticulosis is demonstrated without evidence of diverticulitis. Calcification is manifest within the lower pelvic mesentery without evidence of increased tracer uptake. Skeletal: Degenerative arthrosis is identified without evidence of increased tracer uptake. PET/PET/CT Tumor Base -Thigh Init IMPRESSION: 1. The increase in FDG concentration manifest in the right lower posteromedial lung zone, right lower lobe warrants histopathologic investigation secondary to the quantitative degree of uptake. 2. No other significant scintigraphic abnormalities are defined. Electronic Signature Brayan Kolb D.O. Accurate Quantification of SUVs for this report are calculated using the exclusive [employer], ([place] Patent No. [id number] [id number] [phone] [phone] [phone] [place] patent [phone] ). Standardization and correction of the FDG SUV metric exclusively available with [employer] intellectual property, allow for vendor non-specific objective quantitative sequential FDG PET-CT comparison and otherwise unobtainable optimization of the sensitivity and specificity of the examination. [email or web address] Electronically Signed: Brayan Kolb DO at 7:43 EDT ,
== END | disposition home or self-care (01) ==
LOC: ONC 10:20
PROVIDERS: PCP Nurse Practitioner Family; Referring Provider Internal Medicine Pulmonary Disease; Visit Provider Internal Medicine Pulmonary Disease
DX: R91.1 Solitary pulmonary nodule (principal); R06.02 Shortness of breath
CPT/HCPCS: 78815; A9552

== ENCOUNTER → 2024-09-29 | Outpatient (CLI) | payer MEDICARE, OTHER, SELFPAY ==
[2024-09-29 10:13] LABS: Absolute Lymphocyte Count 1.55 X10^3/uL (0.83-4.51); Absolute Neutrophil Count 2.6 X10^3/uL (2.0-7.7); Basophil# 0.09 X10^3/uL; Basophil% 1.8 % (0-1); Eosinophil# 0.22 X10^3/uL; Eosinophils% 4.3 % (0-5); Hematocrit 49.5 % (40-54); Hemoglobin 15.7 g/dL (13.0-16.5); Lymphocyte # 1.55 X10^3/ul (0.83-4.51); Lymphocyte % 30.5 % (19-41); Mean Corp Hgb Conc 31.7 g/dL (32-36); Mean Corpuscular Hgb 27.6 pg (27.0-32.0); Mean Corpuscular Volume 87.1 fL (80-94); Mean Platelet Vol. 11.1 fl (6.2-12.0); Monocyte# 0.65 X10^3/uL; Monocyte% 12.8 % (0-10); NRBC Flagged by Analyzer 0 % (0-5); Neutrophil # 2.56 X10^3/uL (2.7-7.7); Neutrophil % 50.4 % (47-70); Platelet Count 198 K/mm3 (150-450); RBC Distribution Width SD 55.8 fl (35.1-43.9); Red Blood Count 5.68 M/mm3 (4.6-6.2); White Blood Count 5.1 K/mm3 (4.4-11.0)
[2024-09-29 10:18] LABS: International Normalized Ratio 1.5; Prothrombin Time (Protime)PT. 18.6 SECONDS (11.7-14.9)
[2024-09-29 11:21] LABS: ALB/GLOB Ratio 0.9 RATIO (0.9-2.4); AST(SGOT) 16 U/L (15-37); Alanine Aminotransfer ALT/SGPT 24 U/L (16-61); Albumin, Serum 3.1 g/dL (3.2-5.0); Alkaline Phosphatase 98 U/L (45-117); Anion Gap 7 (5-15); BUN 14 mg/dL (7-18); BUN/Creat Ratio 11.4 RATIO (10-20); Calcium,Total 8.8 mg/dL (8.5-10.1); Chloride 107 mmol/L (98-107); Cholesterol 109 mg/dL (200); Creatinine, Serum 1.23 mg/dL (0.70-1.30); EST Glomerular Filtration Rate 61 mL/min (>60); Est Glom Filt Rate - Afr Amer 74 mL/min (>60); Globulin 3.6 g/dL (2.2-4.2); Glucose 87 mg/dL (74-106); High Density Lipoprotein 44 mg/dL; Potassium 4.1 mmol/L (3.5-5.1); Protein, Total 6.7 g/dL (6.4-8.2); Sodium Level 140 mmol/L (136-145); Triglycerides 86 mg/dL; Very Low Density Lipoprotein 17 mg/dL (5-40)
== END | disposition home or self-care (01) ==
PROVIDERS: PCP Nurse Practitioner Family
DX: I10 Essential (primary) hypertension (principal); I48.91 Unspecified atrial fibrillation; E78.5 Hyperlipidemia, unspecified; Z13.1 Encounter for screening for diabetes mellitus
CPT/HCPCS: 36415; 80053; 80061; 84443; 85025; 85610

== ENCOUNTER 2024-09-30 13:47 | Outpatient (RCR) | payer MEDICARE, OTHER, SELFPAY ==
[2024-09-30 14:44] LABS: Prothrombin Time (Protime)PT. 23.3 SECONDS (11.7-14.9)
== END 2024-10-23 23:59 ==
LOC: VSLAB 13:47
PROVIDERS: PCP Nurse Practitioner Family
DX: I48.91 Unspecified atrial fibrillation (principal); Z79.01 Long term (current) use of anticoagulants
CPT/HCPCS: 36415; 85610

== ENCOUNTER 2025-06-09 10:21 | Emergency (ER) | payer MEDICARE, OTHER, SELFPAY ==
[2025-06-09 10:23] VITALS: BP 119/88; PULSE 91; RESP 17; TEMP 36.3; O2SAT 98; BMI 33.1
[2025-06-09 10:25] VITALS: BP 119/88; PULSE 91; RESP 17; TEMP 36.3; O2SAT 98
--- NOTE | 2025-06-09 10:35 | EKG12_ITS ---
Test Reason : SOB Blood Pressure : */* mmHG Vent. Rate : 64 BPM Atrial Rate : 84 BPM P-R Int : * ms QRS Dur : 152 ms QT Int : 444 ms P-R-T Axes : * -41 0 degrees QTcB Int : 458 ms Ventricular-paced rhythm Abnormal ECG Confirmed by YEYO SYED, KIM ([id number]), editorial director TIBURCIO GURROLA ([id number]) on 06/10/2025 10:00:20 AM Referred By: Confirmed By: KIM ORONA MD
--- NOTE | 2025-06-09 10:36 | ED.VIS.DYS ---
HPI History of Present Illness Chief Complaint: Shortness of Breath Detail of Chief Complaint: Increased dyspnea past week and hypoxia 6-minute walk test Informant: patient Onset/Context/Timing Onset: Weeks Context: gradual Timing: Intermittent Quality: Positive for Dyspnea on exertion; Negative for Orthopnea, PND or Wheezing Current Severity: Gone Maximum Severity: Moderate Worsened by: Exertion; Not Worsened By Lying flat or Coughing Relieved by: Rest Associated Symptoms cough; Negative for rhinorrhea, post nasal drip, ear pain, fever, sore throat, subjective, chills, sweats, clear sputum, white sputum, yellow sputum, green sputum or other Chest Pain: Positive for None Narrative Narrative: Patient is a 75-year-old male with history of cerebrovascular accident affecting his left posterior cerebral artery with bilateral hemianopia, hypertension, coronary disease with placement of 3 stents. Antithrombotic and Watchman procedure. He does have history of pacemaker. He is on a baby aspirin a day. He is on no anticoagulant. Last echo was a RADHA performed at the [facility] March 2024 which revealed an EF of 60%. RV was normal. Left atrium was dilated. There was 1?2+ mitral regurgitation. The Watchman and left atrial appendage and closure device was implanted there was no CELESTE device leak noted. He had an abnormal nuclear stress which revealed old scar with no celeste-infarct ischemia April 2024. Patient had radiofrequency ablation for his atrial fibrillation. He was seen by his bale piler Dr. Boom Nieto because of dyspnea with activity the past week. After 2 minutes he desaturated to 88% during his 6-minute walk test. He was sent to the emergency department. There was no call received from his office. Patient states he was told to come here. Patient denies chest pain, pressure, tightness or heaviness with activity or rest. He denies orthopnea or PND. He does have a slight incline to his bed because of history of GERD. He denies black or maroon-colored stool. PE Risk Factors: Negative for Cancer, OCP + Smoking + > 35, Prior DVT or PE, Recent immobilization, Recent surgery or Recent travel Prior similar symptoms: No Recent Illness/Hospitalization: No PFSH [facility] Medical History Cerebrovascular accident (stroke) Coronary artery disease Afib HTN (hypertension) Proteinuria Acute ischemic left posterior cerebral artery (BUFFER AUTOMATIC) stroke Acute ischemic right posterior cerebral artery (BUFFER AUTOMATIC) stroke Cognitive dysfunction Debility Bilateral hemianopia Lung mass Depression Low HDL (under 40) BPH (benign prostatic hyperplasia) Adrenal nodule Left atrial enlargement Glucose intolerance (impaired glucose tolerance) Dyslipidemia Chronic renal failure, stage 3a Obesity (BMI 30.0-34.9) Glucose intolerance (impaired glucose tolerance) Neuropathy Former smoker, stopped smoking many years ago Ankylosing spondylitis Myocardial infarct COPD (chronic obstructive pulmonary disease) Home Medications ?Medication ?Instructions ?Recorded ?Last Taken ?Type atorvastatin 40 mg tablet 40 mg PO QHS #30 tabs 03/03/24 Unknown Rx cholecalciferol (vitamin D3) 25 25 mcg PO DAILY #30 caps 03/03/24 Unknown Rx mcg (1,000 unit) capsule ketoconazole 2 % topical cream 1 applic topical 0600,2200 PRN 03/03/24 Unknown Rx facial rash #1 tube pantoprazole 40 mg tablet,delayed 40 mg PO BID STOMACH ACID #60 tabs 03/03/24 Unknown Rx release pregabalin 50 mg capsule 100 mg (2 x 50 mg) PO BID #120 caps 03/03/24 Unknown Rx furosemide 20 mg tablet 20 mg PO QDAY 10/02/24 Unknown History aspirin 81 mg tablet,delayed 81 mg PO QDAY 02/02/25 Unknown History release (Adult Aspirin Regimen) calcium carbonate [Antacid PO DAILY PRN 02/02/25 Unknown History (calcium carbonate)] potassium citrate 10 mEq (1,080 10 meq PO QDAY SUPPLEMENT 02/02/25 Unknown History mg) tablet,extended release sertraline 100 mg tablet 50 mg PO DAILY 02/02/25 Unknown History Allergy/AdvReac Type Severity Reaction Status Date / Time adhesive tape Allergy Rash, Verified 06/09/25 10:26 itching remdesivir AdvReac Hallucinati Verified 06/09/25 10:26 on Family History Father Ankylosing spondylitis Other Lung cancer Surgical History S/P Mohs surgery for basal cell carcinoma History of tonsillectomy History of cardiac radiofrequency ablation Pacemaker Presence of Watchman left atrial appendage closure device Social History household members: none housing: apartment number of children: 0 Smoking Status: Former smoker Tobacco: How many years used: 40 alcohol intake: current alcohol intake frequency: 0-2 drinks per day Alcohol type: beer substance use type: does not use caffeine: No ROS ROS ED Constitutional Constitutional ED: Denies chills, fever(s), sweats or weight loss Eyes Eyes: Denies blurry vision or change in vision ENT ENT ED: Denies rhinorrhea or sore throat Cardiovascular Cardiovascular: Denies chest pain, orthopnea, palpitations, paroxysmal nocturnal dyspnea or racing heartbeat Respiratory/Chest Respiratory/Chest: Reports cough, dyspnea on exertion and other Details: Patient has a chronic cough which is nonproductive secondary to COPD. He does have oxygen at home. ; Denies dyspnea, orthopnea, paroxysmal nocturnal dyspnea or sputum Gastrointestinal Gastrointestinal: Denies abdominal pain, diarrhea, nausea or vomiting Genitourinary Genitourinary ED: Denies hematuria Musculoskeletal Musculoskeletal: Denies arthralgias or myalgias Integumentary Denies rash Neurologic Neurologic: Denies paresthesias or weakness Hematologic/Lymphatic Hematologic/Lymphatic: Denies easy bleeding or easy bruising EXAM Physical Exam Const Vital Signs: 06/09/25 10:23 06/09/25 10:25 06/09/25 11:25 Temperature 97.4 F L 97.4 F L Temperature Source Temporal Temporal Pulse Rate 91 91 Respiratory Rate 17 17 Respiratory Effort Respiratory Depth Respiratory Pattern Blood Pressure 119/88 H 119/88 H 120/71 Blood Pressure Mean 98 98 87 Pulse Ox 98 98 Oxygen Delivery Method Room Air Room Air 06/09/25 11:25 06/09/25 12:28 06/09/25 12:31 Temperature 98.6 F 97.7 F L Temperature Source Oral Oral Pulse Rate 90 60 Respiratory Rate 18 13 Respiratory Effort Normal Non-Labored Respiratory Depth Normal Respiratory Pattern Normal Blood Pressure 120/66 115/88 H Blood Pressure Mean 84 97 Pulse Ox 99 97 Oxygen Delivery Method Room Air Room Air Room Air Positive well nourished and well developed General Appearance ED: well developed and NAD; Negative for pallor HEENT Reports moist mucous membranes HEENT Narrative: Head is atraumatic and normocephalic. Ears normal. Nares patent. Posterior pharynx is normal. Eyes PERRL and EOMs intact bilaterally General Eye ED: Negative for pale conjunctiva or scleral icterus Neck no lymphadenopathy, supple, no meningeal signs and no JVD Resp normal respiratory effort and clear to auscultation bilaterally Cardio regular rate, regular rhythm, S1 normal heart sound, S2 normal heart sound and no murmurs GI non-tender, non-distended and no masses Auscultation: normoactive bowel sounds Extremity normal to inspection General Extremety ED: Negative for edema or tenderness General Extremity: Negative for edema Neuro oriented x3 and CN's II-XII intact bilaterally Sensorium / Orientation: alert Psych mental status grossly normal Skin no wounds and skin turgor normal General Skin Exam: Negative for jaundice or pallor Lesions: no lesions Rashes: no rashes MDM MDM MDM Narrative Medical decision making narrative: Differential diagnosis to include COPD, pneumonia, CHF unlikely, doubt pneumothorax. Need to consider atypical presentation for cardiac ischemia. Will obtain EKG, chest x-ray and appropriate blood work including troponin. Since this is only related to exertion doubt pulmonary embolus. Lab Data Attestation: I reviewed the patient's lab results. Lab results narrative: Hemoglobin is elevated from baseline by approximately 2 to 2.5 g. Since chest x-ray is suggestive of congestive heart failure he has no history of congestive heart failure will obtain BNP. BNP is normal. With no orthopnea, no pedal edema and a normal BNP suspect this is all due to his COPD with chronic changes and not CHF. His first troponin was normal. Labs: Laboratory Results - last 24 hr 06/09/25 06/09/25 10:23 12:39 WBC 6.4 RBC 5.67 Hgb 17.5 H Hct 51.3 MCV 90.5 MCH 30.9 MCHC 34.1 RDW Std Deviation 48.4 H RDW Coeff of Elias 14.6 Plt Count 182 MPV 10.5 Immature Gran % (Auto) 0.200 Neut % (Auto) 65.6 Lymph % (Auto) 20.7 Garrard % (Auto) 8.7 Eos % (Auto) 3.6 Baso % (Auto) 1.2 H Absolute Neuts (auto) 4.2 Absolute Lymphs (auto) 1.33 Nucleated RBC % 0 Sodium 139 Potassium 4.1 Chloride 104 Carbon Dioxide 26.5 Anion Gap 9 BUN 25 H Creatinine 1.27 H Estim Creat Clear Calc 64.70 Est GFR (MDRD) Non-Af 60 BUN/Creatinine Ratio 19.4 Glucose 117 H Calcium 9.0 Troponin T High Sens 15 Troponin T Hi Sens 2 Hr 12 NT pro BNP II 748 Radiography Chest X-Ray - ED: 2 View and Read by ED Physician (Independent reviewed interpreted by me as increased interstitial markings. Comparison is single view portable chest x-ray January 2024. There is chronic changes noted as well.) Diagnostic Testing: Clinical Impression(s) from Imaging Studies Chest X-Ray 06/09/25 10:55 IMPRESSION: Vascular congestion mild CHF. Findings suggestive of linear scarring in the lateral aspect of the right upper lobe. Reading Location: [place] [id number] EKG Initial EKG: Attestation: I personally reviewed and interpreted this EKG as follows: Interpretation: Paced (Ventricular paced rhythm rate of 64. It is unchanged from EKG performed on February 21, 2024.) Treatment and Re-Evaluation :: Patient informed of results. Patient does have oxygen at home. He was told to apply 2 L of oxygen by nasal cannula when he ambulates or exerts himself. Plan is to discharge to home Discharge Plan Triage Chief Complaint: Shortness of Breath ED Provider: Mu Boswell Dx/Rx/DC Orders Clinical Impression: Hypoxia, History of COPD, Coronary artery disease, joint terminal attack controller current use of anticoagulant, Cerebrovascular accident (stroke), HTN (hypertension), Afib Instructions: ED Dyspnea Prescriptions: No Action furosemide 20 mg tablet 20 mg PO QDAY sertraline 100 mg tablet 50 mg PO DAILY potassium citrate 10 mEq (1,080 mg) tablet extended release 10 meq PO QDAY aspirin [Adult Aspirin Regimen] 81 mg tablet,delayed release (DR/EC) 81 mg PO QDAY calcium carbonate [Antacid (calcium carbonate)] PO DAILY PRN ketoconazole 2 % Cream 1 applic topical 0600,2200 PRN (Reason: facial rash) Qty: 1 0RF Protocol: *Topical Application Instructions APPLICATION INSTRUCTIONS: apply to the rash in the left nasolabial fold. Rx Instructions: Apply to the rash on the face twice a day as needed pregabalin 50 mg Capsule 100 mg PO BID Qty: 120 0RF Rx Instructions: 2 tabs twice a day atorvastatin 40 mg tablet 40 mg PO QHS Qty: 30 0RF cholecalciferol (vitamin D3) 25 mcg (1,000 unit) capsule 25 mcg PO DAILY Qty: 30 0RF pantoprazole 40 mg tablet,delayed release (DR/EC) 40 mg PO BID Qty: 60 0RF Primary Care Provider: Kimberley Kumar Referrals: Kimberley Kumar, SHIPPING CLERK-C [Primary Care Provider, [facility]] - As Needed Activity Restrictions/Additional Instructions: You should wear your oxygen at 2 L when you are walking or exerting yourself. At rest you do not need to use oxygen Print Language: Guamanian Disposition Disposition: Home, Self Care
[2025-06-09 10:46] LABS: Hematocrit 51.3 % (40-54); Hemoglobin 17.5 g/dL (13.0-16.5); Immature Granulocytes Count 0.010 X10^3/uL (0.0-0.0); Mean Corp Hgb Conc 34.1 g/dL (32-36); Mean Corpuscular Volume 90.5 fL (80-94); Mean Platelet Vol. 10.5 fl (6.2-12.0); NRBC Flagged by Analyzer 0 % (0-5); Platelet Count 182 K/mm3 (150-450); RBC Distribution Width CV 14.6 % (11.6-14.6); RBC Distribution Width SD 48.4 fl (35.1-43.9); Red Blood Count 5.67 M/mm3 (4.6-6.2); White Blood Count 6.4 K/mm3 (4.4-11.0)
--- NOTE | 2025-06-09 10:55 | RAD_ITS ---
PROCEDURE: CHEST PA AND LATERAL 06/09/2025 REASON FOR EXAM: DYSPNEA ON EXERTION AND FAILED 6-MINUTE OXYGEN WAL TECHNIQUE: Procedure Code: RADCXR Modality: DX Procedure: CHEST PA AND LATERAL COMPARISON: None FINDINGS: Hardware: EKG electrodes are seen. Heart: Left-sided dual-chamber pacemaker is seen. The heart is nonenlarged. Mediastinum: The mediastinal contour is unremarkable. Lungs: Findings suggestive of mild vascular congestion and CHF. Linear density in the peripheral aspect of the right upper lobe suggestive of scarring. Bones: Degenerative changes are identified within the thoracic spine. RAD/Chest PA and Lateral IMPRESSION: Vascular congestion mild CHF. Findings suggestive of linear scarring in the lateral aspect of the right upper lobe. Reading Location: [place] [id number]
[2025-06-09 11:16] LABS: Anion Gap 9 (5-15); BUN 25 mg/dL (4-19); BUN/Creat Ratio 19.4 RATIO (10-20); Calcium,Total 9.0 mg/dL (7.6-11.0); Carbon Dioxide 26.5 mmol/L (21.0-32.0); Chloride 104 mmol/L (98-108); Estimated Creatinine Clearance 64.70 ml/min (50-250); Glucose 117 mg/dL (70-99); Potassium 4.1 mmol/L (3.3-5.1); Troponin T High Sensitivity 15 ng/L (<=22)
[2025-06-09 11:25] VITALS: BP 120/66; BP 120/71; PULSE 90; RESP 18; TEMP 37; O2SAT 99
[2025-06-09 12:28] VITALS: BP 115/88; PULSE 60; RESP 13; TEMP 36.5; O2SAT 97
[2025-06-09 12:48] LABS: Pro- Brain NATRIURETIC PEPTIDE 748 pg/mL (<=900)
[2025-06-09 13:00] VITALS: BP 110/80; PULSE 60; RESP 10; TEMP 36.5; O2SAT 96
[2025-06-09 13:05] LABS: Troponin T High Sens 2 HR 12 ng/L (<=22)
[2025-06-09 13:23] VITALS: BP 110/80; PULSE 60; RESP 19; TEMP 36.1; O2SAT 96
== END 2025-06-09 13:24 | disposition home or self-care (01) ==
PROVIDERS: Emergency Provider Emergency Medicine; PCP Nurse Practitioner Family; Visit Provider Emergency Medicine
DX: R09.02 Hypoxemia (principal); I13.0 Hypertensive heart and chronic kidney disease with heart failure and stage 1 through stage 4 chronic kidney disease, or unspecified chronic kidney disease; J44.9 Chronic obstructive pulmonary disease, unspecified; I48.91 Unspecified atrial fibrillation; N18.31 Chronic kidney disease, stage 3a; I25.10 Atherosclerotic heart disease of native coronary artery without angina pectoris; I34.0 Nonrheumatic mitral (valve) insufficiency; E78.5 Hyperlipidemia, unspecified; Z79.82 Long term (current) use of aspirin; Z79.899 Other long term (current) drug therapy; Z95.0 Presence of cardiac pacemaker; Z95.5 Presence of coronary angioplasty implant and graft; Z86.73 Personal history of transient ischemic attack (TIA), and cerebral infarction without residual deficits; Z87.891 Personal history of nicotine dependence
CPT/HCPCS: 71046; 80048; 83880; 84484; 85025; 93005; 99284; A4216

== ENCOUNTER → 2025-06-21 | Outpatient (CLI) | payer MEDICARE, OTHER, SELFPAY ==
[2025-06-21 10:48] LABS: Hematocrit 48.8 % (40-54); Hemoglobin 16.5 g/dL (13.0-16.5); Immature Granulocytes Count 0.010 X10^3/uL (0.0-0.0); Mean Corp Hgb Conc 33.8 g/dL (32-36); Mean Corpuscular Volume 92.1 fL (80-94); Mean Platelet Vol. 10.8 fl (6.2-12.0); NRBC Flagged by Analyzer 0 % (0-5); Platelet Count 180 K/mm3 (150-450); RBC Distribution Width CV 14.3 % (11.6-14.6); RBC Distribution Width SD 48.4 fl (35.1-43.9); Red Blood Count 5.30 M/mm3 (4.6-6.2); White Blood Count 5.8 K/mm3 (4.4-11.0)
== END | disposition home or self-care (01) ==
LOC: LAB 09:58
PROVIDERS: Referring Provider Internal Medicine Pulmonary Disease; Visit Provider Internal Medicine Pulmonary Disease
DX: R09.02 Hypoxemia (principal)
CPT/HCPCS: 36415; 85025

== ENCOUNTER → 2025-07-01 | Outpatient (CLI) | payer MEDICARE, OTHER, SELFPAY ==
[2025-07-01 12:36] LABS: Hematocrit 51.2 % (40-54); Hemoglobin 16.6 g/dL (13.0-16.5); Immature Granulocytes Count 0.010 X10^3/uL (0.0-0.0); Mean Corp Hgb Conc 32.4 g/dL (32-36); Mean Corpuscular Volume 93.6 fL (80-94); Mean Platelet Vol. 11.5 fl (6.2-12.0); NRBC Flagged by Analyzer 0 % (0-5); Platelet Count 177 K/mm3 (150-450); RBC Distribution Width CV 14.5 % (11.6-14.6); RBC Distribution Width SD 49.6 fl (35.1-43.9); Red Blood Count 5.47 M/mm3 (4.6-6.2); White Blood Count 5.4 K/mm3 (4.4-11.0)
[2025-07-01 13:42] LABS: AST(SGOT) 24 U/L (<=37); Alanine Aminotransfer ALT/SGPT 23 U/L (<=46); Albumin, Serum 3.7 g/dL (3.4-4.8); Alkaline Phosphatase 118 U/L (40-129); Anion Gap 9 (5-15); BUN 21 mg/dL (4-19); BUN/Creat Ratio 16.9 RATIO (10-20); Calcium,Total 9.6 mg/dL (7.6-11.0); Carbon Dioxide 27.9 mmol/L (21.0-32.0); Chloride 105 mmol/L (98-108); Cholesterol 130 mg/dL (<=200); Globulin 3.0 g/dL (2.2-4.2); Glucose 145 mg/dL (70-99); Low Density Lipoprotein Calc. 73 mg/dL; PSA,Total - Annual Screen 1.01 ng/mL (0.02-4.00); Potassium 4.0 mmol/L (3.3-5.1); Triglycerides 103 mg/dL; Very Low Density Lipoprotein 21 mg/dL (5-40); Vitamin D,25 Hydroxy 53.7 ng/mL (30-100); cholesterol:hdl ratio screen 3.41
== END | disposition home or self-care (01) ==
LOC: VSLAB 10:33
DX: Z13.1 Encounter for screening for diabetes mellitus (principal); Z12.5 Encounter for screening for malignant neoplasm of prostate; I10 Essential (primary) hypertension; E55.9 Vitamin D deficiency, unspecified; E78.5 Hyperlipidemia, unspecified
CPT/HCPCS: 36415; 80053; 80061; 82306; 83036; 84153; 84443; 85025; G0103

== ENCOUNTER → 2025-07-02 | Outpatient (CLI) | payer MEDICARE, OTHER, SELFPAY ==
--- NOTE | 2025-07-02 12:29 | ECHOCS_ITS ---
Reason For Study ECHO/Echo Complete W/ Contrast
== END | disposition home or self-care (01) ==
LOC: CVS 12:28
PROVIDERS: Referring Provider Physician Assistant Medical; Visit Provider Physician Assistant Medical
DX: R06.09 Other forms of dyspnea (principal)
CPT/HCPCS: 93306; Q9957; A4216; C8929

== ENCOUNTER → 2025-07-15 | Outpatient (CLI) | payer MEDICARE, OTHER, SELFPAY | END | disposition home or self-care (01) | LOC: LABSPEC 15:21 | PROVIDERS: Referring Provider Otolaryngology Otolaryngology/Facial Plastic Surgery; Visit Provider Otolaryngology Otolaryngology/Facial Plastic Surgery | DX: J32.8 Other chronic sinusitis (principal) | CPT/HCPCS: 87070; 87077; 87205 ==